=== PATIENT | female | born 1965 | race Caucasian/White ===

== ENCOUNTER 2017-07-20 10:08 | Observation (INO) | payer OTHER ==
[2017-07-20] MEDS ORDERED: ONDANSETRON 4 MG/2 ML VIAL ONE (10:50)
[2017-07-20] MEDS ORDERED: MORPHINE 10 MG/ML VIAL ONE (10:50)
--- NOTE | 2017-07-20 10:55 | RAD REPORT ---
EXAM DESCRIPTION: RAD - Chest Single View - 07/20/2017 10:50 am CLINICAL HISTORY: Chest pain. COMPARISON: 04/16/2016 FINDINGS: Portable technique limits examination quality. The lungs are grossly clear. The heart is normal in size. No displaced fractures. IMPRESSION: No acute intrathoracic process suspected.
[2017-07-20 11:07] LABS: Absolute Lymphocytes (CBC) 2.6 K/uL (0.7-4.9); Absolute Monocytes 0.6 K/uL (0.1-1.3); Absolute Neutrophil 7.1 K/uL (1.8-8.0); Basophils % 0.8 % (0-1.3); Eosinophils % 0.3 % (0-4.4); Hematocrit 50.2 % (36.0-45.0); Lymphocytes % 25.1 % (15.3-44.8); MCH 29.2 pg (27.0-35.0); MCV 89.6 fL (80-100); MPV 8.7 fL (7.6-11.3); Monocytes % 5.3 % (3.3-12.3)
[2017-07-20 11:09] LABS: Protime INR 1.51
[2017-07-20 11:41] LABS: Potassium 3.6 mEq/L (3.6-5.0)
[2017-07-20] MEDS ORDERED: levoFLOXacin 500 MG TAB ONE (11:44)
[2017-07-20 11:48] LABS: Albumin 4.5 g/dL (3.2-5.5); Bilirubin Direct 0.1 mg/dL (0-0.2); Protein, Total 7.5 g/dL (6.0-8.3)
--- NOTE | 2017-07-20 13:00 | RAD REPORT ---
EXAM DESCRIPTION: CT - Chest For Pe Angio - 07/20/2017 12:48 pm CLINICAL HISTORY: Chest pain. Shortness of breath. COMPARISON: 02/17/2013 TECHNIQUE: CT angiogram of the pulmonary arteries was performed with MIP. All CT scans are performed using dose optimization technique as appropriate and may include automated exposure control or mA/KV adjustment according to patient size. FINDINGS: No evidence of pulmonary thromboembolism. No acute aortic finding demonstrated. Aberrant right subclavian artery noted, normal variant. The lungs are clear. Prominent air cyst is present in left apex anteriorly. No significant pericardial or pleural fluid. No concerning bony finding. IMPRESSION: No evidence of pulmonary thromboembolism. No acute lung findings.
--- NOTE | 2017-07-20 13:47 | ER ---
Nurse's Notes [facility] Name: Marcie Obando Age: 52 yrs Sex: Female : 1965 Arrival Date: 07/20/2017 Time: 10:09 Bed 2 Private MD: Anup Harvey Diagnosis: Chest pain, unspecified Presentation: 07/20 10:15 Presenting complaint: Patient states: " I took some allergy and cold medicine Wednesday ph morning and went to sleep and when I woke up I was having chest pains and SOB." Pt reports pressure in center of chest that is worse w/ breathing, also reports SOB at rest, stomach pain and diarrhea yesterday. Transition of care: patient was not received from another setting of care. Onset of symptoms was July 20, 2017. Initial Sepsis Screen: Does the patient meet any 2 criteria? No. Patient's initial sepsis screen is negative. Does the patient have a suspected source of infection? No. Patient initial sepsis screen negative. 10:15 Method Of Arrival: Ambulatory ph 10:15 Acuity: ROSSI 3 ph 10:55 Care prior to arrival: None. sv Triage Assessment: 10:21 General: Appears in no apparent distress. uncomfortable, Behavior is calm, cooperative, ph appropriate for age, Denies fever. Pain: Complains of pain in chest. Cardiovascular: Reports chest pain, lightheadedness, shortness of breath. Respiratory: Airway is patent Respiratory effort is labored, Respiratory pattern is tachypnea. 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 (4 mg/mL) nasal spry 1 spray [Active]; - PMHx: 10:20 Bipolar disorder; Hypothyroidism; blood clots; ph - PSHx: 10:20 Knee surgery; kidney surgery; shoulder surgery; Tonsillectomy; Cholecystectomy; breast ph implants; tummy tuck; - Immunization history:: Adult Immunizations up to date. - Social history:: Smoking status: Patient/guardian denies using tobacco. - Family history:: not pertinent. - Hospitalizations: : No recent hospitalization is reported. Screenin:50 Abuse screen: Denies threats or abuse. Denies injuries from another. Nutritional iw screening: No deficits noted. Tuberculosis screening: No symptoms or risk factors identified. Fall Risk IV access (20 points). Assessment: 10:35 General: Appears uncomfortable, Behavior is cooperative. Pain: Complains of pain in iw chest Pain does not radiate. Pain began Aggravated by exercise, coughing. Neuro: Level of Consciousness is awake, alert, obeys commands, Oriented to person, place, time, situation, Moves all extremities. Full function Speech is normal. Cardiovascular: Capillary refill < 3 seconds in bilateral fingers Patient's skin is warm and dry. Respiratory: Reports shortness of breath pain with respiration. 10:55 General: Appears in no apparent distress. uncomfortable, Behavior is cooperative, sv anxious. Pain: Complains of pain in anterior aspect of right upper chest, mid-sternal area and right breast Pain does not radiate. Pain currently is 7 out of 10 on a pain scale. Quality of pain is described as sharp, Is continuous, Aggravated by deep breathing. Neuro: Level of Consciousness is awake, alert, obeys commands, Oriented to person, place, time, situation, Moves all extremities. Full function Speech is normal. Cardiovascular: Patient's skin is warm and dry. Respiratory: Respiratory effort is even, unlabored, Respiratory pattern is symmetrical, tachypnea. Derm: Skin is pink, warm \\T\\ dry. 15:00 Reassessment: Patient appears in no apparent distress at this time. Patient and/or sv family updated on plan of care and expected duration. Pain level reassessed. Patient is alert, oriented x 3, equal unlabored respirations, skin warm/dry/pink. Vital Signs: 10:20 BP 131 / 102; Pulse 75; Resp 28; Temp 97.1; Pulse Ox 98% on R/A; Weight 81.65 kg; ph Height 5 ft. 4 in. (162.56 cm); Pain 7/10; 10:33 BP 134 / 92; Pulse 59; Resp 22 S; Pulse Ox 98% on R/A; iw 11:52 BP 111 / 85; Pulse 57; Resp 25; Pulse Ox 100% on R/A; sv 12:30 BP 111 / 80; Pulse 49; Resp 15; Pulse Ox 100% ; sv 13:31 BP 115 / 96; Pulse 74; Resp 18; Pulse Ox 100% ; sv 14:58 BP 113 / 78; Pulse 64; Resp 19 S; Pulse Ox 99% on R/A; sg 10:20 Body Mass Index 30.90 (81.65 kg, 162.56 cm) ph Vitals: 10:55 Cardiac Rhythm Assessment Sinus rhythm. sv ED Course: 10:09 Patient arrived in ED. as 10:09 Anup Harvey MD is Private Physician. as 10:18 Triage completed. ph 10:21 Jonathan Desouza MD is Attending Physician. rn 10:21 Arm band placed on. ph 10:46 EKG done, by library media technician. reviewed by Jonathan Desouza MD. at1 10:47 Fidelia Santana RN is Primary Nurse. sv 10:48 Initial lab(s) drawn, by al, sent to lab. Inserted saline lock: 20 gauge in right iw antecubital area, using aseptic technique. Patient maintains SpO2 saturation greater than 95% on room air. 10:51 XRAY Chest (1 view) In Process Unspecified. EDMS 10:55 Patient has correct armband on for positive identification. Placed in gown. Bed in low sv position. Call light in reach. Side rails up X2. Adult w/ patient. personnel monitor on. Pulse ox on. NIBP on. Door closed. Warm blanket given. Head of bed elevated. 10:58 X-ray completed. Portable x-ray completed in exam room. Patient tolerated procedure mh1 well. 12:[address] Scan. sv 12:[address] via stretcher. sv 12:39 CT completed. Patient tolerated procedure well. Patient moved to CT via stretcher. vr Patient moved back from CT. 12:49 Chest For Pe Angio In Process Unspecified. EDMS 13:46 Neeta Ramirez MD is Hospitalizing Provider. rn 15:00 No provider procedures requiring assistance completed. Patient admitted, IV remains in sg place. intact, No redness/swelling at site. Administered Medications: 10:55 Drug: Zofran 4 mg Route: IVP; Site: right antecubital; sv 12:00 Follow up: Response: No adverse reaction sv 10:59 Drug: morphine 4 mg Route: IVP; Site: right antecubital; sv 12:00 Follow up: Response: No adverse reaction; No change in condition; Informed Dr Shanks Intake: Outcome: 13:46 Decision to Hospitalize by Provider. rn 15:00 Admitted to Tele accompanied by tech, via stretcher, with chart, Report called to mike Gustafson RN 15:00 Condition: stable 15:00 Instructed on the need for admit. 15:12 Patient left the ED. sv Signatures: Dispatcher [employer] Fidelia Nelson RN RN Bruno Norwood RN RN Lala Barton 1 Ginna Huerta Irene, RN RN Jonathan Desouza MD MD rn Davis, Victoria vr gonzales, Amanda, drier tender naphthalene EKG [facility]1 Erika Myers RN RN ph Corrections: (The following items were deleted from the chart) 10:34 10:33 BP 134 / 92; Pulse 59bpm; Resp 18bpm; Spontaneous; Pulse Ox 98% RA; iw iw 11:54 11:52 BP 111 / 85; Pulse 57bpm; Resp 32bpm; Pulse Ox 100% RA; [facility] 13:30 13:10 To radiology for Chest For PE Angio+CT.RAD.RAPHAEL. EDMS
--- NOTE | 2017-07-20 13:47 | EDPHYS ---
Physician Documentation [facility] Name: Marcie Obando Age: 52 yrs Sex: Female : 1965 Arrival Date: 07/20/2017 Time: 10:09 Bed 2 Private MD: Anup Harvey ED Physician Jonathan Desouza HPI: 07/20 10:36 This 52 yrs old Female presents to ER via Ambulatory with complaints of Chest rn Pain, Shortness Of Breath. 10:36 The patient or guardian reports chest pain that is located primarily in the substernal rn area. Onset: last night. The pain does not radiate. Associated signs and symptoms: Pertinent positives: abdominal pain, shortness of breath, Pertinent negatives: diaphoresis, dizziness, lower extremity pain, lower extremity swelling, syncope. The chest pain is described as aching. Duration: The patient or guardian reports multiple episodes, that are intermittent. Modifying factors: The symptoms are alleviated by nothing. the symptoms are aggravated by activity, deep breath, movement. Severity of pain: At its worst the pain was moderate in the emergency department the pain is unchanged. The patient has experienced similar episodes in the past. Reports central chest pain, dull/achy, intermittent since last night, no fever, reports all began with migraine, then chest pain, mild sob, mild epigastric abd pain, reports hx of blood clots but only DVTs, has filter and on xarelto. No known cardiac history. . 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 (4 mg/mL) nasal spry 1 spray [Active]; - PMHx: 10:20 Bipolar disorder; Hypothyroidism; blood clots; ph - PSHx: 10:20 Knee surgery; kidney surgery; shoulder surgery; Tonsillectomy; Cholecystectomy; breast ph implants; tummy tuck; - Immunization history:: Adult Immunizations up to date. - Social history:: Smoking status: Patient/guardian denies using tobacco. - Family history:: not pertinent. - Hospitalizations: : No recent hospitalization is reported. ROS: 10:36 Constitutional: Negative for fever, chills, and weight loss, Eyes: Negative for injury, rn pain, redness, and discharge, Neck: Negative for injury, pain, and swelling, Cardiovascular: Negative for edema, Respiratory: Negative for wheezing Abdomen/GI: Negative for vomiting, diarrhea, and constipation, MS/Extremity: Negative for injury and deformity, Skin: Negative for injury, rash, and discoloration, Neuro: Negative for weakness, numbness, tingling, and seizure. Exam: 10:36 Constitutional: Appears anxious, sitting upright, speaking full sentences Head/Face: rn Normocephalic, atraumatic. Eyes: Pupils equal round and reactive to light, extra-ocular motions intact. Lids and lashes normal. Conjunctiva and sclera are non-icteric and not injected. Cornea within normal limits. Periorbital areas with no swelling, redness, or edema. Neck: Trachea midline, no thyromegaly or masses palpated, and no cervical lymphadenopathy. Supple, full range of motion without nuchal rigidity, or vertebral point tenderness. No Meningismus. Chest/axilla: Nontender with no deformity. No lesions are appreciated. Cardiovascular: Regular rate and rhythm with a normal S1 and S2. No gallops, murmurs, or rubs. Normal PMI, no JVD. No pulse deficits. Respiratory: Mild tachypnea but clear bilaterally Abdomen/GI: soft, mild epigastric tenderness, no rebound/masses Skin: Warm, dry with normal turgor. Normal color with no rashes, no lesions, and no evidence of cellulitis. MS/ Extremity: Pulses equal, no cyanosis. Neurovascular intact. Full, normal range of motion. Equal circumference. Neuro: Awake and alert, GCS 15, oriented to person, place, time, and situation. Cranial nerves II-XII grossly intact. Motor strength 5/5 in all extremities. Sensory grossly intact. Cerebellar exam normal. Normal gait. 11:01 ECG was reviewed by the Attending Physician. rn Vital Signs: 10:20 BP 131 / 102; Pulse 75; Resp 28; Temp 97.1; Pulse Ox 98% on R/A; Weight 81.65 kg; ph Height 5 ft. 4 in. (162.56 cm); Pain 7/10; 10:33 BP 134 / 92; Pulse 59; Resp 22 S; Pulse Ox 98% on R/A; iw 11:52 BP 111 / 85; Pulse 57; Resp 25; Pulse Ox 100% on R/A; sv 12:30 BP 111 / 80; Pulse 49; Resp 15; Pulse Ox 100% ; sv 13:31 BP 115 / 96; Pulse 74; Resp 18; Pulse Ox 100% ; sv 14:58 BP 113 / 78; Pulse 64; Resp 19 S; Pulse Ox 99% on R/A; sg 10:20 Body Mass Index 30.90 (81.65 kg, 162.56 cm) ph MDM: 10:21 Patient medically screened. rn 13:45 Differential diagnosis: acute myocardial infarction, acute pericarditis, anxiety, rn coronary artery disease chest wall pain, esophagitis, gastroesophageal reflux disease (GERD), pleurisy, pneumonia, pneumothorax. Data reviewed: vital signs, nurses notes, lab test result(s), EKG, radiologic studies, CT scan, plain films, and as a result, I will admit patient. Counseling: I had a detailed discussion with the patient and/or guardian regarding: the historical points, exam findings, and any diagnostic results supporting the discharge/admit diagnosis, lab results, radiology results, the need for further work-up and treatment in the hospital. Response to treatment: the patient's symptoms have mildly improved after treatment. Admission orders: after a detailed discussion of the patient's condition and case, the admit orders are written by me. ED course: Pt still having chest pain, crying, tachypneic, most likely pleuritic pain, will observe overnight. . 07/20 10:30 Order name: Basic Metabolic Panel; Complete Time: 12:02 rn 07/20 10:30 Order name: CBC with Diff; Complete Time: 11:14 rn 07/20 10:30 Order name: LFT's; Complete Time: 12:02 rn 07/20 10:30 Order name: PT-INR; Complete Time: 11: rn 07/20 10:30 Order name: Ptt, Activated; Complete Time: 11:14 rn 07/20 10:30 Order name: Troponin (emerg Dept Use Only); Complete Time: 11:37 rn 07/20 10:30 Order name: XRAY Chest (1 view); Complete Time: 10:57 rn 07/20 10:30 Order name: EKG; Complete Time: 10:31 rn 07/20 10:30 Order name: Lipase; Complete Time: 12:02 rn 07/20 12:32 Order name: Chest For Pe Angio; Complete Time: 13:07 EDRI 07/20 10:30 Order name: Cardiac monitoring; Complete Time: 10:51 rn 07/20 10:30 Order name: EKG - Nurse/Tech; Complete Time: 10:51 rn 07/20 10:30 Order name: IV Saline Lock; Complete Time: 10:51 rn 07/20 10:30 Order name: Labs collected and sent; Complete Time: 10:51 rn 07/20 10:30 Order name: O2 Per Protocol; Complete Time: 10: rn 07/20 10:30 Order name: O2 Sat Monitoring; Complete Time: 10:51 rn EC:01 Rate is 64 beats/min. Rhythm is regular. QRS [place] is Normal. [place] interval is normal. QRS rn interval is normal. QT interval is normal. No Q waves. T waves are Normal. No ST changes noted. Clinical impression: Normal ECG. Interpreted by me. Administered Medications: 10:55 Drug: Zofran 4 mg Route: IVP; Site: right antecubital; sv 12:00 Follow up: Response: No adverse reaction sv 10:59 Drug: morphine 4 mg Route: IVP; Site: right antecubital; sv 12:00 Follow up: Response: No adverse reaction; No change in condition; Informed Dr Dimitris mckeon Disposition: 07/20/17 13:46 Hospitalization ordered by Neeta Ramirez for Observation. Preliminary diagnosis is Chest pain, unspecified. - Bed requested for Telemetry/MedSurg (observation). - Status is Observation. sv - Condition is Stable. - Problem is new. - Symptoms have improved. UTI on Admission? No Signatures: Dispatcher [employer] Fidelia Nelson RN RN sv Woody, Diana, RN RN dw Williams, Irene, RN RN iw Nieto, Roman, MD MD rn Myers, Erika, RN RN ph Corrections: (The following items were deleted from the chart) 10:52 10:31 BNP+C.LAB.BRZ ordered. EDMS EDMS 13:30 13:00 Chest For PE Angio+CT.RAD.BRZ ordered. EDMS EDMS
[2017-07-20] MEDS ORDERED: ONDANSETRON 4 MG/2 ML VIAL IV PRN (13:50)
[2017-07-20] MEDS: ACETAMINOPHEN 500 MG TAB PO PRN (16:10)
--- NOTE | 2017-07-20 16:30 | EKG ---
Test Date: 2017-07-20 Test Time: 10:35:56 Customer Service Driver: RG MEASUREMENT RESULTS: Intervals: Rate: 64 MA: 150 QRSD: 80 QT: 416 QTc: 429 [place]: P: -5 MA: 150 QRS: 24 T: 28 INTERPRETIVE STATEMENTS: Normal sinus rhythm Normal ECG Compared to ECG 07/13/2015 15:59:23 Sinus tachycardia no longer present ST (T wave) deviation no longer present Electronically Signed On 07-20-17 16:29:23 CDT by Waqar Degroot
--- NOTE | 2017-07-20 16:47 | P.HP ---
Certification for Inpatient Patient admitted to: Observation With expected LOS: <2 Midnights Patient will require the following post-hospital care: None Practitioner: I am a practitioner with admitting privileges, knowledge of patient current condition, hospital course, and medical plan of care. Services: Services provided to patient in accordance with Admission requirements found in Title 42 Section 412.3 of the Code of Federal Regulations Patient History Date of Service: 07/20/17 Primary Care Provider: Dr Harvey Reason for admission: Chest pain History of Present Illness: This is a 52-year-old female with significant past medical history of bipolar, hypothyroidism, blood clots who presented to the ED complaining of having some chest pain that has been radiating to the left arm and the back. Patient also complained of having some palpitations in the ER. Patient stated that the pain was 7/10 at its worse and was sharp and shooting in nature and sometimes it was dull. Patient states that she has never had the similar episodes in the past and this is the 1st time she has been experiencing this kind of symptoms. Patient states that she has been having some problems with breathing as well. Patient denies having any fever chills nausea vomiting or any other associated symptoms at this time. In the ER patient had troponin x1 negative, EKG had no ST abnormalities. CT PE protocol was also negative. Patient was then admitted to the hospital for further observation. Allergies No Known Allergies Allergy (Verified 07/13/15 20:51) Home Medications: Gabapentin [Gabapentin] 600 mg PO TID 07/13/15 Mesalamine [Lialda] 3 tab PO DAILY 07/13/15 Rivaroxaban [Xarelto] 20 mg PO BEDTIME 07/13/15 Topiramate [Topamax] 100 mg PO BID 07/13/15 Dihydroergotamine Mesylate 1 spray KHADIJAH PRN PRN 07/20/17 Levothyroxine [Synthroid*] 0.088 mg PO DAILY 07/20/17 Nebivolol HCl [Bystolic] 5 mg PO DAILY 07/20/17 Temazepam [Restoril*] 30 mg PO BEDTIME 07/20/17 - Past Medical/Surgical History Diabetic: No -: Bipolar -: Hypothyroid -: hx of blood clot in leg 2013 -: Colitis -: Bronchitis -: Migraines -: Asthma -: hysterectomy -: kidney sx when child - Family History Father -: Heart disease, Hypertension - Social History Alcohol use: No CD- Drugs: No Caffeine use: Yes Review of Systems General: As per HPI Physical Examination - Vital Signs Temperature: 97.5 F Blood Pressure: 113/76 Pulse: 73 Respirations: 20 Pulse Ox (%): 100 - Physical Exam General: Alert, In no apparent distress, Oriented x3 HEENT: Atraumatic Neck: Supple Respiratory: Clear to auscultation bilaterally, Normal air movement Cardiovascular: Regular rate/rhythm, Normal S1 S2 Gastrointestinal: Normal bowel sounds, No tenderness Musculoskeletal: No tenderness Integumentary: No rashes Neurological: Normal speech, Normal tone Lymphatics: No axilla or inguinal lymphadenopathy - Studies Laboratory Data (last 24 hrs) 07/20/17 10:40: PT 17.9 H, INR 1.51, APTT 30.8 07/20/17 10:40: WBC 10.4, Hgb 16.3 H, Hct 50.2 H, Plt Count 252 07/20/17 10:40: Sodium 139, Potassium 3.6, BUN 10, Creatinine 1.19 H, Glucose 93 , Total Bilirubin 1.0, AST 20, ALT 23, Alkaline Phosphatase 77, Lipase 25 07/20/17 10:30: B-Natriuretic Peptide Cancelled Assessment and Plan - Problems (Diagnosis) (1) Chest pain Current Visit: Yes Status: Acute Plan: Atpical Chest Pain with SOB -ACS ruleout -Troponin x 1 negative. Will repeat x 3 -ECHO pending -cardiology consulted. -On anticoagulation Xarelto for now. Qualifiers: Chest pain type: unspecified Qualified Code(s): R07.9 - Chest pain, unspecified (2) Pulmonary embolism Current Visit: Yes Status: Chronic Plan: On Xarelto Qualifiers: Pulmonary embolism type: other Chronicity: chronic Acute cor pulmonale presence: without acute cor pulmonale Qualified Code(s): I27.82 - Chronic pulmonary embolism (3) Bipolar disorder Current Visit: Yes Status: Chronic Qualifiers: Active/Remission status: remission status unspecified Qualified Code(s): F31.9 - Bipolar disorder, unspecified (4) Hypothyroid Current Visit: No Status: Chronic Qualifiers: Hypothyroidism type: acquired Qualified Code(s): E03.9 - Hypothyroidism, unspecified Discharge Plan: Home Plan to discharge in: 24 Hours - Advance Directives Does patient have a Living Will: No Does patient have a Durable POA for Healthcare: No - Code Status/Comfort Care Code Status Assessed: Yes Critical Care: No
[2017-07-20 16:48] VITALS: BMI 30.9
[2017-07-20] MEDS ORDERED: POTASSIUM 25 MEQ EFFERV TAB PO ONE (17:00)
[2017-07-20] MEDS: TOPIRAMATE 100 MG TAB PO SCH (20:27)
[2017-07-20] MEDS: GABAPENTIN 300 MG CAP PO SCH (20:27)
[2017-07-20] MEDS: IPRATROPIUM BROM 0.5MG/2.5ML NEB PRN (20:54)
[2017-07-20] MEDS: ALBUTEROL 2.5 MG/3 ML NEB SOL NEB PRN (20:54)
[2017-07-20] MEDS ORDERED: RIVAROXABAN 20 MG TABLET PO SCH (21:00)
[2017-07-20] MEDS ORDERED: ATORVASTATIN 40 MG TAB PO SCH (21:00)
[2017-07-20] MEDS ORDERED: TEMAZEPAM 15 MG CAP PO SCH (21:00)
[2017-07-20] MEDS ORDERED: TOPIRAMATE 100 MG PO SCH (21:00)
[2017-07-21] MEDS: ACETAMINOPHEN 500 MG TAB PO PRN (02:04)
[2017-07-21] MEDS: TRAMADOL HCL 50 MG TAB PO PRN ×2 (04:43→10:22)
[2017-07-21 04:57] LABS: Absolute Lymphocytes (CBC) 3.1 K/uL (0.7-4.9); Absolute Monocytes 0.4 K/uL (0.1-1.3); Absolute Neutrophil 2.5 K/uL (1.8-8.0); Basophils % 0.7 % (0-1.3); Eosinophils % 3.1 % (0-4.4); Hematocrit 42.4 % (36.0-45.0); MCH 29.5 pg (27.0-35.0); MCV 91.1 fL (80-100); MPV 8.9 fL (7.6-11.3); Monocytes % 6.9 % (3.3-12.3); RBC Red Blood Cell Count 4.65 M/uL (3.86-4.86)
[2017-07-21] MEDS ORDERED: LEVOTHYROXINE SOD 0.088 MG TAB PO SCH (06:00)
[2017-07-21 06:49] LABS: Albumin 3.4 g/dL (3.2-5.5); Bilirubin Total 0.5 mg/dL (0.3-1.2); Magnesium 2.2 mg/dL (1.8-2.5); Phosphorus 4.4 mg/dL (2.5-4.3); Potassium 3.8 mEq/L (3.6-5.0); Protein, Total 5.5 g/dL (6.0-8.3)
--- NOTE | 2017-07-21 07:54 | ECHO ---
HEIGHT: 5 ft 4 in WEIGHT: 180 lb 0 oz DATE OF STUDY: 07/20/[address]: Neeta Ramirez MD 2-DIMENSIONAL: YES M.MODE: YES DOPPLER: YES COLOR FLOW: YES TDS: YES PORTABLE: NO DEFINITY: NO BUBBLE STUDY: NO DIAGNOSIS: CHEST PAIN CARDIAC HISTORY: CATHERIZATION: NO SURGERY: NO PROSTHETIC VALVE: NO PACEMAKER: NO MEASUREMENTS (cm) DIASTOLIC (NORMALS) SYSTOLIC (NORMALS) IVSd 1.1 (0.6-1.2) LA Diam 3.1 (1.9-4.0) LVEF 62% LVIDd 3.4 (3.5-5.7) LVIDs 2.3 (2.0-3.5) %FS 32% LVPWd 1.1 (0.6-1.2) Ao Diam 2.7 (2.0-3.7) 2 DIMENSIONAL ASSESSMENT: RIGHT ATRIUM: NORMAL LEFT ATRIUM: NORMAL RIGHT VENTRICLE: NORMAL LEFT VENTRICLE: NORMAL TRICUSPID VALVE: NORMAL MITRAL VALVE: NORMAL PULMONIC VALVE: NORMAL AORTIC VALVE: NORMAL PERICARDIAL EFFUSION: NONE AORTIC ROOT: NORMAL LEFT VENTRICULAR WALL MOTION: NORMAL DOPPLER/COLOR FLOW: NORMAL COMMENTS: TECHNICALLY DIFFICULT STUDY. GROSSLY NORMAL LEFT VENTRICULAR EJECTION FRACTION AND SIZE. NO WALL MOTION ABNORMALITY. NO EFFUSION. TECHNOLOGIST: Noman RUANO
[2017-07-21] MEDS ORDERED: ASPIRIN EC 81 MG TAB PO SCH (09:00)
[2017-07-21] MEDS ORDERED: NEBIVOLOL HCL 5 MG PO SCH (09:00)
[2017-07-21] MEDS ORDERED: MESALAMINE PO SCH (09:00)
[2017-07-21] MEDS ORDERED: NEBIVOLOL HCL 5 MG TAB PO SCH (09:00)
[2017-07-21] MEDS ORDERED: METHYLPREDNISOLONE 125 MG INJ IV ONE (09:07)
[2017-07-21 09:13] LABS: A1c Component 0.5 mg/dL; Hemoglobin A1c 5.2 % (4-6.0)
[2017-07-21] MEDS: POTASSIUM CL SA 10 MEQ TAB PO ONE ×2 (09:58→09:59)
[2017-07-21] MEDS: GABAPENTIN 300 MG CAP PO SCH ×2 (09:59→14:05)
[2017-07-21 10:44] VITALS: O2SAT 100
[2017-07-21] MEDS ORDERED: REGADENOSON 0.4 MG/5 ML SYR IV ONE (11:44)
[2017-07-21] MEDS: ALBUTEROL 2.5 MG/3 ML NEB SOL NEB PRN (13:29)
[2017-07-21] MEDS: IPRATROPIUM BROM 0.5MG/2.5ML NEB PRN (13:29)
[2017-07-21] MEDS: TOPIRAMATE 100 MG TAB PO SCH (13:36)
--- NOTE | 2017-07-21 13:43 | CON ---
Identification: A 52-year-old woman. Chief Complaint: Chest pain. History Of Present Illness: Ms. Obando started having chest pain Wednesday night and for the most part, i t went away, but when she woke up Wednesday morning, 2 days ago, she had intense pain, well localized to the lower part of the midsternum. It does not change much with sitting or lying position, but deep breath aggravates it tremendously. Its never gone away completely and is exacerbated by deep breath and other movements of the upper chest. She appears to be very uncomfortable since being here in the hospital. Her electrocardiograms are within normal limits. An echocardiogram is within normal limi ts. There is no effusion or wall motion abnormality, but technically difficult study. Her troponins are all normal and a CT angio of the chest is negative for pulmonary embolus. The chest x-ray is no rmal. The patient has never had myocardial infarction or stroke. She does not have diabetes. She d oes not use tobacco. She has underlying bipolar disorder with mostly depressive symptoms, history of deep vein thrombosis and for that, she takes Xarelto 20 mg every day. She has hypothyroidism and mi graine headaches. Outpatient Medications: Dihydroergotamine, temazepam, levothyroxine, nebivolol, mesalamine, topirama te, gabapentin, and rivaroxaban. Allergies: SHE HAS NO ALLERGIES. Physical Examination: Vital Signs: 5 feet 4 inches, 180 pounds. Blood pressure 104/64, heart rate 54, O2 saturation 98% r oom air, and temperature 97.5. General: She appears to be uncomfortable, not in respiratory or hemodynamic distress. HEENT: Normal. Lungs: Clear. Cardiac: normal. There is no friction rub. Abdomen: Soft. Extremities: within normal limits. Normal pulses and the EKG is normal. I think the patient's pain is all pleuritic. It does not seem to be pericarditis, but pleurisy can h ave this even though there is no friction rub. I think we should give her a dose of steroids and see if that helps. If it does, she could undergo outpatient therapy. I have ordered a nuclear stress t est, pharmacological to see if there is anything suggesting she might have CAD, but she would seem to be a low to moderate risk at worst of having CAD. Her symptoms are highly unlikely to represent an acute MS. SH/MODL Voice ID: [id number] Report ID: [id number]
--- NOTE | 2017-07-21 13:49 | RAD REPORT ---
EXAM DESCRIPTION: NM - Rest Stress Cardiac Imaging - 07/21/2017 1:14 pm CLINICAL HISTORY: Chest pain COMPARISON: None. TECHNIQUE: The patient was administered 10.9 mCi of Tc 99m Sestamibi prior to resting SPECT imaging of the heart. The patient was then administered 31.2 mCi of Tc 99m Sestamibi following exercise or ph armacologic stress. Multiplanar SPECT images were reviewed. FINDINGS: The end diastolic volume is 71 ml, the end systolic volume is 26 ml, and the ejection frac tion is 63 %. No stress-induced ischemic changes identifiable. There is a fixed perfusion defect at the apex. Patch y decreased activity along the inferior wall does not change between rest and stress imaging. IMPRESSION: No stress-induced ischemia. Corinne and inferior wall small irregular fixed defects that could be scarring, attenuation artifact or a combination. Ventricular volumes and ejection fraction are normal range.
[2017-07-21 14:15] VITALS: TEMP 97.5
--- NOTE | 2017-07-21 14:41 | TREADPHA ---
DX: CHEST PAIN Date of Study: 07/21/2017 Ht: 5' 4 " Wt: 180 lb 0 oz Consulting Physician: KARISHMA MEDICATIONS: ASPIRIN, LIPITOR, NEURONTIN, SYTHROID, BYSTOLIC, ZOFRAN, XARELTO, RESTORIL, TOPAMAX, ULTRAM HISTORY: 52 YEAR OLD FEMALE WITH COMPLAINTS OF CHEST PAIN AND SHORTNESS OF BREATH. HISTORY OF HYPERTENSION, DEEP VEIN THROMBUS AND MIGRAINES. PHYSICIAL EXAMINATION: RESTING B.P.: 94/73 RESTING H.R.: 43 RESTING EKG: SINUS BRADYCARDIA, OTHERWISE NORMAL. PROTOCOL: LEXISCAN EXERCISE TIME: 3:30 B.P. AT PEAK STRESS: 95/76 106/65 IMPRESSION: LEXISCAN INJECTED. CARDIOLITE INJECTED PER PROTOCOL. SEE NUCLEAR MEDICINE REPORT. CHEST PAIN INCREASED FROM 5/10 TO 8/10 POST ADMINISTRATION. NO VENTRICULAR TACHYCARDIA. NO SUPRAVENTRICULAR TACHYCARDIA. NON DIAGNOSTIC EKG WITH LEXISCAN STRESS TEST.
[2017-07-21 15:06] LABS: Urine Appearance CLEAR; Urine Bilirubin NEGATIVE (NEG); Urine Blood NEGATIVE (NEG); Urine Color YELLOW; Urine Glucose NEGATIVE (NEG); Urine Protein NEGATIVE (NEG); Urine Urobilinogen 0.2 mg/dL (0.2-1.0)
[2017-07-21 15:12] VITALS: BP 109/68
[2017-07-21 15:24] LABS: Urine Microscopic Reflex NO UMIC
--- NOTE | 2017-07-21 17:24 | P.SSS ---
Patient History Date of Service: 07/21/17 Primary Care Provider: Dr Harvey Reason for admission: Chest pain History of Present Illness: This is a 52-year-old female with significant past medical history of bipolar, hypothyroidism, blood clots who presented to the ED complaining of having some chest pain that has been radiating to the left arm and the back. Patient also complained of having some palpitations in the ER. Patient stated that the pain was 7/10 at its worse and was sharp and shooting in nature and sometimes it was dull. Patient states that she has never had the similar episodes in the past and this is the 1st time she has been experiencing this kind of symptoms. Patient states that she has been having some problems with breathing as well. Patient denies having any fever chills nausea vomiting or any other associated symptoms at this time. In the ER patient had troponin x1 negative, EKG had no ST abnormalities. CT PE protocol was also negative. Patient was then admitted to the hospital for further observation. Allergies No Known Allergies Allergy (Verified 07/13/15 20:51) Home Medications: Gabapentin [Gabapentin] 600 mg PO TID 07/13/15 Mesalamine [Lialda] 3 tab PO DAILY 07/13/15 Rivaroxaban [Xarelto] 20 mg PO BEDTIME 07/13/15 Topiramate [Topamax] 100 mg PO BID 07/13/15 Dihydroergotamine Mesylate 1 spray KHADIJAH PRN PRN 07/20/17 Levothyroxine [Synthroid*] 0.088 mg PO DAILY 07/20/17 Nebivolol HCl [Bystolic] 5 mg PO DAILY 07/20/17 Temazepam [Restoril*] 30 mg PO BEDTIME 07/20/17 Pantoprazole [Protonix Tab] 40 mg PO DAILY #30 tab 07/21/17 - Past Medical/Surgical History Has patient received pneumonia vaccine in the past: Yes Diabetic: No -: Bipolar -: Hypothyroid -: hx of blood clot in leg 2012 -: Colitis -: Bronchitis -: Migraines -: Asthma -: hysterectomy -: kidney sx when child -: Knee Sx -: Shoulder sx -: Tonsillectomy -: Chlecystectomy -: Breast implants -: Obed escalante - Family History Father -: Heart disease, Hypertension - Social History Smoking Status: Never smoker Alcohol use: No CD- Drugs: No Caffeine use: Yes Place of Residence: Home Review of Systems General: As per HPI Physical Examination - Vital Signs Temperature: 97.5 F Blood Pressure: 109/68 Pulse: 63 Respirations: 18 Pulse Ox (%): 98 - Physical Exam General: Alert, In no apparent distress HEENT: Atraumatic, PERRLA, Mucous membr. moist/pink, EOMI, Sclerae nonicteric Neck: Supple, 2+ carotid pulse no bruit, No LAD, Without JVD or thyroid abnormality Respiratory: Clear to auscultation bilaterally, Normal air movement Cardiovascular: Regular rate/rhythm, Normal S1 S2 Gastrointestinal: Normal bowel sounds, No tenderness Musculoskeletal: No tenderness Integumentary: No rashes Neurological: Normal gait, Normal speech, Normal strength at 5/5 x4 extr, Normal tone, Normal affect Lymphatics: No axilla or inguinal lymphadenopathy - Diagnosis (Problem(s)) (1) Chest pain Onset Date: 07/21/17 Status: Acute Qualifiers: Chest pain type: unspecified Qualified Code(s): R07.9 - Chest pain, unspecified (2) Bipolar disorder Onset Date: 07/21/17 Status: Chronic Qualifiers: Active/Remission status: remission status unspecified Qualified Code(s): F31.9 - Bipolar disorder, unspecified (3) Hypothyroid Onset Date: 07/21/17 Status: Chronic Qualifiers: Hypothyroidism type: acquired Qualified Code(s): E03.9 - Hypothyroidism, unspecified Treatment Summary: Overall during the hospital stay patient remained stable The patient was initially admitted to the hospital for chest pain. Had an echocardiogram done here in the hospital along with stress test which were both negative for any acute abnormalities. Patient was then discharged home under stable condition. Patient has a lot of underlying anxiety due to recent changes in her life. She is going through a divorce and does has been trying to get her anxiety in control and has not been successful. Patient was asked to follow up with his primary care provider to get properly treated for anxiety and was asked to talk to a counselor as well regarding follow up with a psychiatrist. Patient does follow up with [facility] and will be seen there shortly. - Disposition Disposition: ROUTINE DISCHARGE Diet: Regular Activity: Ad aziza
== END 2017-07-21 15:46 | disposition home or self-care (01) ==
LOC: ER 10:08 → ERHOLD 13:47 → 4TH 15:05
PROVIDERS: ADMIT Family Medicine; ATTEND Family Medicine
DX: R07.9 Chest pain, unspecified (principal); F31.9 Bipolar disorder, unspecified; E03.9 Hypothyroidism, unspecified; Z86.718 Personal history of other venous thrombosis and embolism
CPT/HCPCS: 36415; 71045; 71275; 78452; 80048; 80053; 80061; 80076; 81003; 83036; 83690; 83735; 84100; 84484; 85025; 85610; 85730; 93005; 93017; 93306; 94640; 96374; 96375; 99285; A9500; G0378; J2405; J2785; J2930; Q9967

== ENCOUNTER 2019-01-09 03:05 | Emergency (ER) | payer OTHER ==
[2019-01-09] MEDS ORDERED: ONDANSETRON 4 MG/2 ML VIAL ONE (03:48)
[2019-01-09] MEDS ORDERED: KETOROLAC 30 MG/ML INJ ONE (03:48)
[2019-01-09] MEDS ORDERED: DIPHENHYDRAMINE 50 MG/ML VIAL ONE (03:48)
[2019-01-09] MEDS ORDERED: NA CHLORIDE 0.9% 1,000 ML ONE (03:48)
[2019-01-09] MEDS ORDERED: MORPHINE 4 MG/ML SYR ONE (04:51)
--- NOTE | 2019-01-09 06:08 | ER ---
Nurse's Notes [facility] Name: Marcie Obando Age: 53 yrs Sex: Female : 1965 Arrival Date: 01/09/2019 Time: 03:08 Bed 8 Private MD: Diagnosis: Migraine without aura, not intractable, without status migrainosus Presentation: 01/09 03:19 Presenting complaint: Patient states: "I have a migraine that has been going on for the lp1 past month"; States recent change in medication by neurologist with no relief; Complaint of pain to left methodist radiating to left arm, light sensitivity, nausea. Transition of care: patient was not received from another setting of care. Onset of symptoms was January 08, 2019. Risk Assessment: Do you want to hurt yourself or someone else? Patient reports no desire to harm self or others. Initial Sepsis Screen: Does the patient meet any 2 criteria? No. Patient's initial sepsis screen is negative. Does the patient have a suspected source of infection? No. Patient's initial sepsis screen is negative. Care prior to arrival: None. 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 - Hysterectomy lp1 Historical: - Allergies: 03:24 NKA; wh 03:24 NKA; lp1 - Home Meds: 03:24 sumatriptan 20 mg/actuation nasal spry 1 spray daily for Migraine [Active]; topiramate lp1 50 mg oral tab 2 tabs 2 times per day [Active]; levothyroxine 88 mcg tab 1 tab once daily [Active]; Xarelto 20 mg Oral tab 1 tab once daily [Active]; tamsulosin 0.4 mg oral cp24 1 cap nightly [Active]; amoxicillin 500 mg Oral tab 1 tab daily [Active]; - PMHx: 03:24 Hypertension; wh 03:24 Bipolar disorder; blood clots; Hypothyroidism; Migraines; Stage 3 renal disease; UTI; lp1 - PSHx: 03:24 Hysterectomy; Cholecystectomy; kidney surgery; IVC filter; breast augmentation; lp1 - Immunization history:: Adult Immunizations up to date, Adult Immunizations up to date. - Social history:: Smoking status: Patient/guardian denies using tobacco, Patient uses Vape, Smoking status: Patient/guardian denies using tobacco. - Ebola Screening: : Patient negative for fever greater than or equal to 101.5 degrees Fahrenheit, and additional compatible Ebola Virus Disease symptoms Patient denies exposure to infectious person No symptoms or risks identified at this time. Screenin:21 Abuse screen: Denies threats or abuse. Denies injuries from another. Nutritional wh screening: No deficits noted. Tuberculosis screening: No symptoms or risk factors identified. Fall Risk None identified. Assessment: 03:24 General: Appears in no apparent distress. uncomfortable, Behavior is calm, cooperative, wh appropriate for age. Pain: Complains of pain in left methodist and left occipital area Pain radiates to left arm Pain currently is 10 out of 10 on a pain scale. Pain began 1 1/2 month ago. Neuro: Level of Consciousness is awake, alert, obeys commands, Oriented to person, place, time, situation, Appropriate for age Ginning Operator are equal bilaterally Reports headache in left frontal area, occipital area, since 1 1/2 month ago. Cardiovascular: Capillary refill < 3 seconds. Respiratory: Airway is patent Respiratory effort is even, unlabored, Respiratory pattern is regular, symmetrical. GI: Abdomen is flat, non-distended, Reports nausea. : No signs and/or symptoms were reported regarding the genitourinary system. EENT: No signs and/or symptoms were reported regarding the EENT system. Derm: Skin is intact, is healthy with good turgor, Skin is pink, warm \\T\\ dry. normal. Musculoskeletal: Circulation, motion, and sensation intact. 04:54 Reassessment: Patient appears in no apparent distress at this time. No changes from previously documented assessment. Patient and/or family updated on plan of care and expected duration. Pain level reassessed. Patient is alert, oriented x 3, equal unlabored respirations, skin warm/dry/pink. STill C/O pain MD notified. 06:15 Reassessment: Patient appears in no apparent distress at this time. No changes from previously documented assessment. Patient and/or family updated on plan of care and expected duration. Pain level reassessed. Patient is alert, oriented x 3, equal unlabored respirations, skin warm/dry/pink. Patient states feeling better. Patient states symptoms have improved. Vital Signs: 03:20 BP 124 / 91; Pulse 92; Resp 18; Temp 98.2(O); Pulse Ox 98% on R/A; Weight 72.57 kg; lp1 Height 5 ft. 4 in. (162.56 cm); Pain 10/10; 04:56 BP 107 / 76; Pulse 88; Resp 18; Pulse Ox 99% on R/A; wh 06:16 BP 116 / 80; Pulse 71; Resp 18; Pulse Ox 96% on R/A; wh 03:20 Body Mass Index 27.46 (72.57 kg, 162.56 cm) lp1 ED Course: 03:08 Patient arrived in ED. ds1 03:15 Pavan Nelson is Primary Nurse. wh 03:20 Triage completed. lp1 03:20 Arm band placed on. lp1 03:21 Patient has correct armband on for positive identification. Bed in low position. Call light in reach. Side rails up X 1. Pulse ox on. NIBP on. 03:33 Jose Ledesma MD is Attending Physician. tw4 03:50 Inserted saline lock: 22 gauge in right antecubital area, using aseptic technique. Blood collected. 06:17 No provider procedures requiring assistance completed. IV discontinued, intact, bleeding controlled, No redness/swelling at site. Administered Medications: 03:57 Drug: TORadol 30 mg Route: IVP; Site: right antecubital; 04:55 Follow up: Response: No adverse reaction 03:57 Drug: NS 0.9% 1000 ml Route: IV; Rate: 1 bolus; Site: right antecubital; 04:55 Follow up: Response: No adverse reaction; IV Status: Completed infusion 03:57 Drug: Zofran 4 mg Route: IVP; Site: right antecubital; 04:55 Follow up: Response: No adverse reaction 03:57 Drug: Benadryl 25 mg Route: IVP; Site: right antecubital; 04:55 Follow up: Response: No adverse reaction 04:56 Drug: morphine 4 mg {Note: RASS 0.} Route: IVP; Site: right antecubital; 06:16 Follow up: Response: No adverse reaction; Pain is decreased; RASS: Alert and Calm (0) Outcome: 06:07 Discharge ordered by . tw4 06:17 Discharged to home ambulatory. 06:17 Condition: good 06:17 Discharge instructions given to patient, Instructed on discharge instructions, follow up and referral plans. POC Migraine Demonstrated understanding of instructions, follow-up care, POC 07:03 Patient left the ED. Signatures: Elma Parra ds1 Sara Staley, RN RN lp1 [email or web address] Jose Ledesma MD MD tw4 Corrections: (The following items were deleted from the chart) 03:58 03:24 GI: Abdomen is flat, non-distended, [facility] 06:16 04:54 Reassessment: Patient appears in no apparent distress at this time. No changes wh from previously documented assessment. Patient and/or family updated on plan of care and expected duration. Pain level reassessed. STill C/O pain notified 06:16 06:15 Reassessment: Patient appears in no apparent distress at this time. No changes wh from previously documented assessment. Patient and/or family updated on plan of care and expected duration. Pain level reassessed. Patient is alert, oriented x 3, equal unlabored respirations, skin warm/dry/pink.
--- NOTE | 2019-01-09 06:08 | EDPHYS ---
Physician Documentation [facility] Name: Marcie Obando Age: 53 yrs Sex: Female : 1965 Arrival Date: 01/09/2019 Time: 03:08 Bed 8 Private MD: ED Physician Jose Ledesma HPI: 01/09 06:14 This 53 yrs old Female presents to ER via Wheelchair with complaints of tw4 Migraine. 06:14 The patient complains of pain to the left jain and left temporal area. The patient tw4 describes the headache as aching. Onset: The symptoms/episode began/occurred today. Associated signs and symptoms: The patient has no apparent associated signs or symptoms. Severity of symptoms: At its worst the pain was moderate, in the emergency department the pain is unchanged. The symptoms are alleviated by nothing. the symptoms are aggravated by nothing. The patient has not experienced similar symptoms in the past. 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 - Hysterectomy lp1 Historical: - Allergies: 03:24 NKA; wh 03:24 NKA; lp1 - Home Meds: 03:24 sumatriptan 20 mg/actuation nasal spry 1 spray daily for Migraine [Active]; topiramate lp1 50 mg oral tab 2 tabs 2 times per day [Active]; levothyroxine 88 mcg tab 1 tab once daily [Active]; Xarelto 20 mg Oral tab 1 tab once daily [Active]; tamsulosin 0.4 mg oral cp24 1 cap nightly [Active]; amoxicillin 500 mg Oral tab 1 tab daily [Active]; - PMHx: 03:24 Hypertension; wh 03:24 Bipolar disorder; blood clots; Hypothyroidism; Migraines; Stage 3 renal disease; UTI; lp1 - PSHx: 03:24 Hysterectomy; Cholecystectomy; kidney surgery; IVC filter; breast augmentation; lp1 - Immunization history:: Adult Immunizations up to date, Adult Immunizations up to date. - Social history:: Smoking status: Patient/guardian denies using tobacco, Patient uses Vape, Smoking status: Patient/guardian denies using tobacco. - Ebola Screening: : Patient negative for fever greater than or equal to 101.5 degrees Fahrenheit, and additional compatible Ebola Virus Disease symptoms Patient denies exposure to infectious person No symptoms or risks identified at this time. ROS: 06:14 Constitutional: Negative for fever, chills, and weight loss, Eyes: Negative for injury, tw4 pain, redness, and discharge, Cardiovascular: Negative for chest pain, palpitations, and edema, Respiratory: Negative for shortness of breath, cough, wheezing, and pleuritic chest pain, Abdomen/GI: Negative for abdominal pain, nausea, vomiting, diarrhea, and constipation, Back: Negative for injury and pain, MS/Extremity: Negative for injury and deformity, Skin: Negative for injury, rash, and discoloration. 06:14 Neuro: Positive for Exam: 06:14 Constitutional: This is a well developed, well nourished patient who is awake, alert, tw4 and in no acute distress. Head/Face: Normocephalic, atraumatic. Chest/axilla: Normal chest wall appearance and motion. Nontender with no deformity. No lesions are appreciated. Cardiovascular: Regular rate and rhythm with a normal S1 and S2. No gallops, murmurs, or rubs. Normal PMI, no JVD. No pulse deficits. Respiratory: Lungs have equal breath sounds bilaterally, clear to auscultation and percussion. No rales, rhonchi or wheezes noted. No increased work of breathing, no retractions or nasal flaring. Abdomen/GI: Soft, non-tender, with normal bowel sounds. No distension or tympany. No guarding or rebound. No evidence of tenderness throughout. Back: No spinal tenderness. No costovertebral tenderness. Full range of motion. MS/ Extremity: Pulses equal, no cyanosis. Neurovascular intact. Full, normal range of motion. Neuro: Awake and alert, GCS 15, oriented to person, place, time, and situation. Cranial nerves II-XII grossly intact. Motor strength 5/5 in all extremities. Sensory grossly intact. Cerebellar exam normal. Normal gait. Vital Signs: 03:20 BP 124 / 91; Pulse 92; Resp 18; Temp 98.2(O); Pulse Ox 98% on R/A; Weight 72.57 kg; lp1 Height 5 ft. 4 in. (162.56 cm); Pain 10/10; 04:56 BP 107 / 76; Pulse 88; Resp 18; Pulse Ox 99% on R/A; wh 06:16 BP 116 / 80; Pulse 71; Resp 18; Pulse Ox 96% on R/A; 03:20 Body Mass Index 27.46 (72.57 kg, 162.56 cm) lp1 MDM: 03:33 Patient medically screened. tw4 06:20 Differential diagnosis: hypoglycemia, hyponatremia, otitis. Data reviewed: vital signs, tw4 nurses notes. Counseling: I had a detailed discussion with the patient and/or guardian regarding: the historical points, exam findings, and any diagnostic results supporting the discharge/admit diagnosis. Administered Medications: 03:57 Drug: TORadol 30 mg Route: IVP; Site: right antecubital; 04:55 Follow up: Response: No adverse reaction 03:57 Drug: NS 0.9% 1000 ml Route: IV; Rate: 1 bolus; Site: right antecubital; 04:55 Follow up: Response: No adverse reaction; IV Status: Completed infusion 03:57 Drug: Zofran 4 mg Route: IVP; Site: right antecubital; 04:55 Follow up: Response: No adverse reaction 03:57 Drug: Benadryl 25 mg Route: IVP; Site: right antecubital; 04:55 Follow up: Response: No adverse reaction 04:56 Drug: morphine 4 mg {Note: RASS 0.} Route: IVP; Site: right antecubital; 06:16 Follow up: Response: No adverse reaction; Pain is decreased; RASS: Alert and Calm (0) Disposition: 01/09/19 06:07 Discharged to Home. Impression: Migraine without aura, not intractable, without status migrainosus. - Condition is Stable. - Medication Reconciliation Form, Thank You Letter, Antibiotic Education, Prescription Opioid Use form. - Follow up: Private Physician; When: Upon discharge from the Emergency Department; Reason: If symptoms return, Recheck today's complaints, Continuance of care. - Problem is an ongoing problem. - Symptoms have improved. Signatures: Sara Staley RN RN lp1 Pavan Nelson Terrence, MD MD tw4 Corrections: (The following items were deleted from the chart) 07:03 06:07 01/09/2019 06:07 Discharged to Home. Impression: Migraine without aura, not wh intractable, without status migrainosus. Condition is Stable. Forms are Medication Reconciliation Form, Thank You Letter, Antibiotic Education, Prescription Opioid Use. Follow up: Private Physician; When: Upon discharge from the Emergency Department; Reason: If symptoms return, Recheck today's complaints, Continuance of care. Problem is an ongoing problem. Symptoms have improved. tw4
[2019-01-09 07:16] VITALS: TEMP 98.2
[2019-01-09 07:19] VITALS: BP 116/80; O2SAT 96
== END 2019-01-09 07:03 | disposition home or self-care (01) ==
LOC: ER 03:05
DX: G43.909 Migraine, unspecified, not intractable, without status migrainosus (principal); F31.9 Bipolar disorder, unspecified; E03.9 Hypothyroidism, unspecified; I12.9 Hypertensive chronic kidney disease with stage 1 through stage 4 chronic kidney disease, or unspecified chronic kidney disease; N18.3 Chronic kidney disease, stage 3 (moderate); Z79.01 Long term (current) use of anticoagulants; Z98.82 Breast implant status
CPT/HCPCS: 96361; 96375; 96374; 99284; J1200; J7030; J2405

== ENCOUNTER 2019-03-16 15:52 | Emergency (ER) | payer OTHER ==
--- OUTSIDE RECORDS SUMMARY | 2019-03-16 15:54 | XMS REPORT ---
:1965 [facility] Address [address] [place] [address] [address]. [address] [place] [address] Care Team Providers Name Role Phone Unavailable Unavailable Unavailable Problems This patient has no known problems. Allergies, Adverse Reactions, Alerts This patient has no known allergies or adverse reactions. Medications This patient has no known medications.
--- NOTE | 2019-03-16 18:00 | ER ---
Nurse's Notes [facility] Name: Marcie Obando Age: 54 yrs Sex: Female : 1965 Arrival Date: 03/16/2019 Time: 15:55 Bed Ultrasound Private MD: Diagnosis: Synovial cyst of popliteal space [Mccann], right knee Presentation: 03/16 15:58 Presenting complaint: Patient states: my right knee started swelling a couple of days tw2 ago and its from my toes to my groin, its warm to the touch and it is swelling, i have a hx of blood clots in the left leg, now this is painful and i cant deal with it anymore. Presenting complaint:. Transition of care: patient was not received from another setting of care. Onset of symptoms was March 16, 2019. Risk Assessment: Do you want to hurt yourself or someone else? Patient reports no desire to harm self or others. Initial Sepsis Screen: Does the patient meet any 2 criteria? No. Patient's initial sepsis screen is negative. Does the patient have a suspected source of infection?. Care prior to arrival: None. 15:58 Method Of Arrival: Ambulatory tw2 15:58 Acuity: ROSSI 3 tw2 Triage Assessment: 16:01 General: Appears in no apparent distress. Behavior is calm, cooperative, appropriate tw2 for age. Pain: Complains of pain in right leg. 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 - Hysterectomy tw2 Historical: - Allergies: 16:01 NKA; tw2 - Home Meds: 16:01 Xarelto 20 mg Oral tab 1 tab once daily [Active]; topiramate 50 mg Oral tab 2 tabs 2 tw2 times per day [Active]; tamsulosin 0.4 mg Oral cp24 1 cap nightly [Active]; sumatriptan 20 mg/actuation nasal spry 1 spray daily for Migraine [Active]; amoxicillin 500 mg Oral tab 1 tab daily [Active]; levothyroxine 88 mcg tab 1 tab once daily [Active]; 16:03 emgality 120 mg/ml injection monthly [Active]; tw2 - PMHx: 16:01 Bipolar disorder; blood clots; Hypertension; Hypothyroidism; Migraines; stage 3 renal tw2 disease; UTI; - PSHx: 16:01 Hysterectomy; Cholecystectomy; kidney surgery; IVC filter; breast augmentation; tw2 - Immunization history:: Adult Immunizations. - Social history:: Smoking status: . - Ebola Screening: : Patient denies travel to an Ebola-affected area in the 21 days before illness onset. Screenin:15 Abuse screen: Denies threats or abuse. Nutritional screening: No deficits noted. tr5 Tuberculosis screening: No symptoms or risk factors identified. Fall Risk None identified. Assessment: 16:15 General: Appears uncomfortable, Behavior is calm, cooperative, appropriate for age. tr5 Pain: Complains of pain in right leg. Neuro: Level of Consciousness is awake, alert, obeys commands. Cardiovascular: Heart tones present Capillary refill < 3 seconds Pulses are all present. Edema is 2+ to right knee, right midcalf, right ankle and right foot. Respiratory: Airway is patent Respiratory effort is even, unlabored, Respiratory pattern is regular, symmetrical. GI: No signs and/or symptoms were reported involving the gastrointestinal system. : No signs and/or symptoms were reported regarding the genitourinary system. EENT: No signs and/or symptoms were reported regarding the EENT system. Derm: Skin is pink. Musculoskeletal: No signs and/or symptoms reported regarding the musculoskeletal system. Vital Signs: 16:02 BP 135 / 98; Pulse 84; Resp 17; Temp 98(TE); Pulse Ox 99% on R/A; Weight 74.84 kg (R); tw2 Height 5 ft. 4 in. (162.56 cm); Pain 7/10; 16:02 Body Mass Index 28.32 (74.84 kg, 162.56 cm) tw2 ED Course: 15:55 Patient arrived in ED. mr 15:59 Triage completed. tw2 15:59 Arm band placed on. tw2 16:05 Ludwig Garnica PA is PHCP. jr8 16:05 Dwight Beckford MD is Attending Physician. jr8 16:15 Bed in low position. Call light in reach. Side rails up X 1. tr5 17:05 Jed Francis, RN is Primary Nurse. tr5 17:48 US Extremity Venous Unilateral Ltd In Process Unspecified. EDMS 18:46 No provider procedures requiring assistance completed. Patient did not have IV access tr5 during this emergency room visit. Administered Medications: No medications were administered Outcome: 17:59 Discharge ordered by MD. mendoza 18:46 Discharged to home ambulatory. tr5 18:46 Condition: stable 18:46 Discharge instructions given to patient, family, Instructed on discharge instructions, follow up and referral plans. Demonstrated understanding of instructions, follow-up care. 18:48 Patient left the ED. tr5 Signatures: Dispatcher [employer] ED BernardoVicki mr NahunLudwig PA PA jr8 Fany Walters RN RN tw2 Jed Francis RN RN tr5 Corrections: (The following items were deleted from the chart) 16:03 16:01 Home Meds: "monthly shot for my migraine, monthly"; tw2 tw2
--- NOTE | 2019-03-16 18:01 | EDPHYS ---
Physician Documentation [facility] Name: Marcie Obando Age: 54 yrs Sex: Female : 1965 Arrival Date: 03/16/2019 Time: 15:55 Bed Ultrasound Private MD: ED Physician Dwight Beckford HPI: 03/16 16:45 This 54 yrs old Female presents to ER via Ambulatory with complaints of Leg jr8 Swelling. 16:45 Onset: The symptoms/episode began/occurred gradually, yesterday. Modifying factors: The jr8 symptoms are alleviated by nothing. the symptoms are aggravated by nothing. Associated signs and symptoms: The patient has no apparent associated signs or symptoms. Severity of symptoms: At their worst the symptoms were moderate, in the emergency department the symptoms are unchanged. It is unknown whether or not the patient has had similar symptoms in the past. The patient has not recently seen a physician. Patient with history of DVT in past. On Xarelto 20 mg QD. Stated that her right knee started to hurt in back and on medial side. Stated that she is concerned she is getting another DVT. 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 - Hysterectomy tw2 Historical: - Allergies: 16:01 NKA; tw2 - Home Meds: 16:01 Xarelto 20 mg Oral tab 1 tab once daily [Active]; topiramate 50 mg Oral tab 2 tabs 2 tw2 times per day [Active]; tamsulosin 0.4 mg Oral cp24 1 cap nightly [Active]; sumatriptan 20 mg/actuation nasal spry 1 spray daily for Migraine [Active]; amoxicillin 500 mg Oral tab 1 tab daily [Active]; levothyroxine 88 mcg tab 1 tab once daily [Active]; 16:03 emgality 120 mg/ml injection monthly [Active]; tw2 - PMHx: 16:01 Bipolar disorder; blood clots; Hypertension; Hypothyroidism; Migraines; stage 3 renal tw2 disease; UTI; - PSHx: 16:01 Hysterectomy; Cholecystectomy; kidney surgery; IVC filter; breast augmentation; tw2 - Immunization history:: Adult Immunizations. - Social history:: Smoking status: . - Ebola Screening: : Patient denies travel to an Ebola-affected area in the 21 days before illness onset. ROS: 16:45 Eyes: Negative for injury, pain, redness, and discharge, ENT: Negative for injury, jr8 pain, and discharge, Neck: Negative for injury, pain, and swelling, Cardiovascular: Negative for chest pain, palpitations, and edema, Respiratory: Negative for shortness of breath, cough, wheezing, and pleuritic chest pain, Abdomen/GI: Negative for abdominal pain, nausea, vomiting, diarrhea, and constipation, Back: Negative for injury and pain, Skin: Negative for injury, rash, and discoloration, Neuro: Negative for headache, weakness, numbness, tingling, and seizure. 16:45 MS/extremity: Positive for pain, swelling, tenderness, warmth, of the right leg. Exam: 16:45 Eyes: Pupils equal round and reactive to light, extra-ocular motions intact. Lids and jr8 lashes normal. Conjunctiva and sclera are non-icteric and not injected. Cornea within normal limits. Periorbital areas with no swelling, redness, or edema. ENT: Nares patent. No nasal discharge, no septal abnormalities noted. Tympanic membranes are normal and external auditory canals are clear. Oropharynx with no redness, swelling, or masses, exudates, or evidence of obstruction, uvula midline. Mucous membranes moist. Neck: Trachea midline, no thyromegaly or masses palpated, and no cervical lymphadenopathy. Supple, full range of motion without nuchal rigidity, or vertebral point tenderness. No Meningismus. Cardiovascular: Regular rate and rhythm with a normal S1 and S2. No gallops, murmurs, or rubs. Normal PMI, no JVD. No pulse deficits. Respiratory: Lungs have equal breath sounds bilaterally, clear to auscultation and percussion. No rales, rhonchi or wheezes noted. No increased work of breathing, no retractions or nasal flaring. Abdomen/GI: Soft, non-tender, with normal bowel sounds. No distension or tympany. No guarding or rebound. No evidence of tenderness throughout. Back: No spinal tenderness. No costovertebral tenderness. Full range of motion. Skin: Warm, dry with normal turgor. Normal color with no rashes, no lesions, and no evidence of cellulitis. Neuro: Awake and alert, GCS 15, oriented to person, place, time, and situation. Cranial nerves II-XII grossly intact. Motor strength 5/5 in all extremities. Sensory grossly intact. Cerebellar exam normal. Normal gait. 16:45 Musculoskeletal/extremity: Extremities: grossly normal except: noted in the right leg: Mild non pitting swelling noted to right leg. No erythema or warmth noted. Mild tenderness to calf and popleiteal region . Vital Signs: 16:02 BP 135 / 98; Pulse 84; Resp 17; Temp 98(TE); Pulse Ox 99% on R/A; Weight 74.84 kg (R); tw2 Height 5 ft. 4 in. (162.56 cm); Pain 7/10; 16:02 Body Mass Index 28.32 (74.84 kg, 162.56 cm) tw2 MDM: 16:05 Patient medically screened. jr8 17:58 Data reviewed: vital signs, nurses notes, radiologic studies, ultrasound, and as a jr8 result, I will discharge patient. Data interpreted: Pulse oximetry: on room air is 99 %. Interpretation: normal. Counseling: I had a detailed discussion with the patient and/or guardian regarding: the historical points, exam findings, and any diagnostic results supporting the discharge/admit diagnosis, radiology results, the need for outpatient follow up, a family practitioner, to return to the emergency department if symptoms worsen or persist or if there are any questions or concerns that arise at home. ED course: Discussed with patient. No DVT. Most likely bakers cyst that popped. Would explain the type of pain she was having. Will d/c home . 03/16 16:21 Order name: US Extremity Venous Unilateral Ltd jr8 Administered Medications: No medications were administered Disposition: 03/17 06:40 Co-signature as Attending Physician, Dwight Beckford MD I agree with the assessment and kdr plan of care. Disposition: 03/16/19 17:59 Discharged to Home. Impression: Synovial cyst of popliteal space [Mccann], right knee. - Condition is Stable. - Discharge Instructions: Mccann Cyst. - Medication Reconciliation Form, Thank You Letter, Antibiotic Education, Prescription Opioid Use form. - Follow up: Private Physician; When: As needed; Reason: Recheck today's complaints, Continuance of care, Re-evaluation by your physician. - Problem is new. - Symptoms have improved. Signatures: Dispatcher [employer] EDMS Dwight Beckford MD MD kdr Roszak, Josh, PA PA jr8 Fany Walters RN RN tw2 Jed Francis RN RN tr5 Corrections: (The following items were deleted from the chart) 03/16 16:03 16:01 Home Meds: "monthly shot for my migraine, monthly"; tw2 tw2 18:48 17:59 03/16/2019 17:59 Discharged to Home. Impression: Synovial cyst of popliteal space tr5 [Mccann], right knee. Condition is Stable. Forms are Medication Reconciliation Form, Thank You Letter, Antibiotic Education, Prescription Opioid Use. Follow up: Private Physician; When: As needed; Reason: Recheck today's complaints, Continuance of care, Re-evaluation by your physician. Problem is new. Symptoms have improved. jr8
--- NOTE | 2019-03-16 18:14 | RAD REPORT ---
EXAM DESCRIPTION: USExtremity Venous Uni Ltd03/16/2019 5:48 pm CLINICAL HISTORY: Right leg pain and swelling. COMPARISON: 2017 FINDINGS: Right common femoral, superficial femoral, popliteal and right posterior tibial veins are compressible and demonstrate augmentation. Doppler demonstrates good flow. 5 x 3 x 1 centimeter Mccann's cyst IMPRESSION: No evidence of deep venous thrombosis involving the right lower extremity. 5 centimeter Mccann's cyst
[2019-03-16 18:54] VITALS: BP 135/98; TEMP 98; O2SAT 99
== END 2019-03-16 18:48 | disposition home or self-care (01) ==
LOC: ER 15:52
DX: M71.21 Synovial cyst of popliteal space [Baker], right knee (principal); I10 Essential (primary) hypertension; E03.9 Hypothyroidism, unspecified; N28.9 Disorder of kidney and ureter, unspecified; I12.9 Hypertensive chronic kidney disease with stage 1 through stage 4 chronic kidney disease, or unspecified chronic kidney disease; N18.3 Chronic kidney disease, stage 3 (moderate); G43.909 Migraine, unspecified, not intractable, without status migrainosus
CPT/HCPCS: 93971; 99283

== ENCOUNTER 2019-08-10 10:11 | Emergency (ER) | payer OTHER ==
--- OUTSIDE RECORDS SUMMARY | 2019-08-10 10:32 | XMS REPORT ---
:1965 Author Organization [facility] t Address [address] [place] [address] Care Team Providers Name Role Phone Unavailable Unavailable Unavailable Problems This patient has no known problems. Allergies, Adverse Reactions, Alerts This patient has no known allergies or adverse reactions. Medications This patient has no known medications.
--- OUTSIDE RECORDS SUMMARY | 2019-08-10 10:33 | XMS REPORT | Summary of Care ---
:1965 Author Organization [facility] Address [address] [place] [id number] Care Team Providers Name Role Phone Nicolás Harvey Primary Care Provider Reason for Visit Reason Comments Refill Request Encounter Details Date Type Department Care Team Description 06/20/2019 Refill [facility] Denis Carr MD Refill Request Neurology-[address] [place] [id number] [address] [place] [id number] [phone] Allergies No Known Allergiesdocumented as of this encounter (statuses as of 06/20/2019) Medications Medication Sig Dispensed Refills Start Date End Date Status LEVOTHYROXINE Take 88 mcg by 0 A ctive SODIUM mouth. (LEVOTHYROXINE ORAL) TRAZODONE HCL Take by mouth. 0 Active (TRAZODONE ORAL) RIVAROXABAN Take 20 mg by 0 Acti ve (XARELTO ORAL) mouth. LIALDA 1.2 gram EC 0 08/22/2015 Active tablet BYSTOLIC 5 mg 0 03/09/2016 Activ e tablet PROCTOSOL HC 2.5 % 0 02/18/2016 Active rectal cream albuterol 1.25 mg/3 0 04/14/2016 Active mL nebulizer solution PROAIR HFA 90 0 04/14/2016 Activ e mcg/actuation inhaler gabapentin 600 mg Take 1 tablet 270 tablet 3 11/30/2017 Active tablet by mouth 3 (three) times daily. amoxicillin 500 mg 0 05/18/2018 Active capsule atomoxetine 60 mg 0 05/05/2018 A ctive capsule SERTraline 100 mg 0 05/13/2018 A ctive tablet traZODONE 50 mg trazodone 50 mg 0 Active tablet tablet topiramate 50 mg Take 3 tablets 540 tablet 2 01/09/2019 Active tablet by mouth 2 (two) times daily. SUMAtriptan 6 Inject 6 4.5 mL 0 01/18/2019 Activ e mg/0.5 mL injection mg/0.5ml subq at onset of migraine. May only use once in a 24 hour period. proMETHazine 25 mg Take 1 tablet 45 tablet 0 01/18/2019 Active tablet by mouth every 6 (six) hours as needed for Nausea and Vomiting (N/V). EMGALITY PEN 120 INJECT 1 1 Each 5 06/20/2019 Ac tive mg/mL PnIj SYRINGE UNDER subcutaneous THE SKIN EVERY injection MONTH galcanezumab-gnlm inject 120 mg 1 Syringe 6 01/18/2019 02 Discontinued prefilled under the skin 0 (EMGALITY) once every subcutaneous month. injection documented as of this encounter (statuses as of 06/20/2019) Active Problems Problem Noted Date Right knee pain 04/16/2016 Left foot pain 08/01/2015 documented as of this encounter (statuses as of 06/20/2019) Social History Tobacco Use Types Packs/Day Years Used Date Never Smoker Smokeless Tobacco: Never Used Alcohol Use Drinks/Week oz/Week Comments No Sex Assigned at Date Recorded Not on file Job Start Date Occupation Industry Not on file Not on file Not on file Travel History Travel Start Travel End No recent travel history available. documented as of this encounter Last Filed Vital Signs Not on filedocumented in this encounter Plan of Treatment Health Maintenance Due Date Last Done Comments HEPATITIS C (HCV) SCREEN 1965 DTaP,Tdap,and Td Vaccines (1 - 02/14/1976 Tdap) PAP SMEAR 1986 Breast Cancer Screening 2005 (MAMMOGRAM) COLONOSCOPY 2015 Zoster Recombinant Vaccine 2015 (SHINGRIX) (1 of 2) INFLUENZA VACCINE (#1) 2018 PNEUMOCOCCAL 0-64 YEARS COMBINED Aged Out No longer eligible based on SERIES patient's age to complete this topic documented as of this encounter Results Not on filedocumented in this encounter Insurance Payer Benefit Plan / Group Subscriber ID Effective Dates Phone Address Type AETVENKAT ALEJANDRA [employer] TRES [id number] 2016-Present PPO documented as of this encounter
[2019-08-10] MEDS ORDERED: MORPHINE 4 MG/ML SYR ONE ×2 (11:02→12:44)
[2019-08-10] MEDS ORDERED: ONDANSETRON 4 MG/2 ML VIAL ONE (11:03)
[2019-08-10 11:10] LABS: Absolute Lymphocytes (CBC) 2.2 K/uL (0.7-4.9); Basophils % 0.9 % (0-1.3); Hematocrit 46.1 % (36.0-45.0); Lymphocytes % 26.5 % (15.3-44.8); MPV 7.8 fL (7.6-11.3); RBC Red Blood Cell Count 5.17 M/uL (3.86-4.86)
[2019-08-10] MEDS ORDERED: NA CHLORIDE 0.9% 1,000 ML ONE (11:16)
[2019-08-10 11:33] LABS: Albumin 3.6 g/dL (3.4-5.0); Bilirubin Direct 0.2 mg/dL (0-0.2); Bilirubin Total 0.7 mg/dL (0.2-1.0)
--- NOTE | 2019-08-10 12:16 | RAD REPORT ---
EXAM DESCRIPTION: CT - Abdomen Pelvis W Contrast - 08/10/2019 11:58 am CLINICAL HISTORY: Abdominal pain COMPARISON: 2015 TECHNIQUE: Computed axial tomography of the abdomen pelvis was obtained. 100 cc Isovue-300 was admin istered intravenously. Oral contrast was not requested which limits evaluation of bowel. All CT scans are performed using dose optimization technique as appropriate and may include automated exposure control or mA/KV adjustment according to patient size. FINDINGS: Cholecystectomy. The common hepatic and common bile ducts are mildly more prominent than o n the prior exam. Mild intrahepatic biliary tree dilatation. Otherwise, the liver is unremarkable . The pancreatic duct is borderline enlarged. A pancreatic mass is not seen The spleen, and adrenals are unremarkable. Small renal cysts. 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 One limb protrudes 16 millimeters through the posterior wall. There is no evidence of diverticulitis. IMPRESSION: Mild progression in the intra and extrahepatic biliary tree dilatation since the prior e xam. This could be physiologic or secondary to pathology such as a stricture. Borderline prominence of pancreatic duct. Is recommended that the patient have an MRCP for further evaluation
[2019-08-10] MEDS ORDERED: HYDROMORPHONE HCL 2 MG/ML inj ONE (13:47)
--- NOTE | 2019-08-10 14:44 | EDPHYS ---
Physician Documentation [facility] Name: Marcie Obando Age: 54 yrs Sex: Female : 1965 Arrival Date: 08/10/2019 Time: 10:12 Bed 14 Private MD: Anup Harvey ED Physician Dwight Beckford HPI: 08/09 11:52 This 54 yrs old Female presents to ER via Ambulatory with complaints of jr8 Abdominal Cramping, Diarrhea, Headache. 11:52 The patient presents with abdominal pain. Onset: The symptoms/episode began/occurred jr8 acutely, 3 day(s) ago. The symptoms do not radiate. Associated signs and symptoms: Pertinent positives: diarrhea, nausea. The symptoms are described as crampy. Modifying factors: The symptoms are alleviated by nothing, the symptoms are aggravated by food. Severity of pain: At its worst the pain was moderate in the emergency department the pain is unchanged. The patient has not experienced similar symptoms in the past. The patient has been recently seen by a physician:. Seen by PCP and given cipro and flagyl. Stated that she started to run fever and pain is worse. Was referred to ED at that time . Historical: - Allergies: 10:45 NKA; ah - Home Meds: 10:45 levothyroxine 88 mcg tab 1 tab once daily [Active]; Xarelto 20 mg Oral tab 1 tab once ah daily [Active]; topiramate 50 mg Oral tab 2 tabs 2 times per day [Active]; Flagyl Oral [Active]; Cipro Oral [Active]; Hyoscyamine Sulfate SL [Active]; Diphenoxylate-Atropine Oral [Active]; Bactrim DS Oral once daily [Active]; Trazodone Oral [Active]; - PMHx: 10:45 Bipolar disorder; blood clots; Hypertension; Hypothyroidism; Migraines; stage 3 renal ah disease; - PSHx: 10:45 Cholecystectomy; Tonsillectomy; Knee surgery; r shoulder; Hysterectomy; breast ah implants; kidney; - Immunization history:: Adult Immunizations up to date. - Social history:: Smoking status: Patient denies any tobacco usage or history of. Patient uses alcohol, occasionally. ROS: 11:52 Eyes: Negative for injury, pain, redness, and discharge, ENT: Negative for injury, jr8 pain, and discharge, Neck: Negative for injury, pain, and swelling, Cardiovascular: Negative for chest pain, palpitations, and edema, Respiratory: Negative for shortness of breath, cough, wheezing, and pleuritic chest pain, Back: Negative for injury and pain, MS/Extremity: Negative for injury and deformity, Skin: Negative for injury, rash, and discoloration, Neuro: Negative for headache, weakness, numbness, tingling, and seizure. 11:52 Abdomen/GI: Positive for abdominal pain, nausea, diarrhea, abdominal cramps. Exam: 11:52 Eyes: Pupils equal round and reactive to light, extra-ocular motions intact. Lids and jr8 lashes normal. Conjunctiva and sclera are non-icteric and not injected. Cornea within normal limits. Periorbital areas with no swelling, redness, or edema. ENT: Nares patent. No nasal discharge, no septal abnormalities noted. Tympanic membranes are normal and external auditory canals are clear. Oropharynx with no redness, swelling, or masses, exudates, or evidence of obstruction, uvula midline. Mucous membranes moist. Neck: Trachea midline, no thyromegaly or masses palpated, and no cervical lymphadenopathy. Supple, full range of motion without nuchal rigidity, or vertebral point tenderness. No Meningismus. Cardiovascular: Regular rate and rhythm with a normal S1 and S2. No gallops, murmurs, or rubs. Normal PMI, no JVD. No pulse deficits. Respiratory: Lungs have equal breath sounds bilaterally, clear to auscultation and percussion. No rales, rhonchi or wheezes noted. No increased work of breathing, no retractions or nasal flaring. Back: No spinal tenderness. No costovertebral tenderness. Full range of motion. Skin: Warm, dry with normal turgor. Normal color with no rashes, no lesions, and no evidence of cellulitis. MS/ Extremity: Pulses equal, no cyanosis. Neurovascular intact. Full, normal range of motion. Neuro: Awake and alert, GCS 15, oriented to person, place, time, and situation. Cranial nerves II-XII grossly intact. Motor strength 5/5 in all extremities. Sensory grossly intact. Cerebellar exam normal. Normal gait. 11:52 Abdomen/GI: Inspection: abdomen appears normal, Bowel sounds: active, all quadrants, Palpation: soft, in all quadrants, moderate abdominal tenderness, in the umbilical area, right lower quadrant and left lower quadrant, mass, is not appreciated, rebound tenderness, is elicited in all quadrants, voluntary guarding, is elicited in the umbilical area, right lower quadrant and left lower quadrant, involuntary guarding, is not appreciated, no appreciated organomegaly, Indicators: McBurney's point is not tender, Camarena's sign is negative, Rovsing's sign is negative, Liver: tenderness, is not appreciated. Vital Signs: 10:35 BP 110 / 81; Pulse 77; Resp 20; Temp 98.7; Pulse Ox 99% ; Weight 81.65 kg; Height 5 ft. ah 4 in. (162.56 cm); Pain 8/10; 11:00 BP 115 / 90; Pulse 69; Resp 20; Pulse Ox 97% ; ah 11:34 BP 119 / 85; Pulse 62; Resp 20; Pulse Ox 97% ; ah 12:28 BP 120 / 91; Pulse 87; Resp 18; Pulse Ox 98% ; ah 13:15 BP 121 / 83; Pulse 74; Resp 20; Pulse Ox 95% ; ah 14:00 BP 117 / 3; Pulse 84; Resp 18; Pulse Ox 96% ; ah 15:22 BP 109 / 78; Pulse 86; Resp 18; Pulse Ox 96% ; ah 10:35 Body Mass Index 30.90 (81.65 kg, 162.56 cm) MDM: 10:33 Patient medically screened. jr8 13:20 Data reviewed: vital signs, nurses notes, lab test result(s), radiologic studies, CT jr8 scan. Data interpreted: Pulse oximetry: on room air is 97 %. Interpretation: normal. Counseling: I had a detailed discussion with the patient and/or guardian regarding: the historical points, exam findings, and any diagnostic results supporting the discharge/admit diagnosis, lab results, radiology results, the need for outpatient follow up, a family practitioner, to return to the emergency department if symptoms worsen or persist or if there are any questions or concerns that arise at home. Response to treatment: the patient's symptoms have mildly improved after treatment. ED course: Spoke with Dr. Harvey about patient after results. Agrees patient can go home and continue medications already prescribed at this time. If worse would come back for further evaluation . 08/09 10:41 Order name: Basic Metabolic Panel; Complete Time: 11:41 08/09 10:41 Order name: CBC with Diff; Complete Time: 11:08/09 10:41 Order name: Creatinine for Radiology; Complete Time: :08/09 10:41 Order name: Hepatic Function; Complete Time: 11:41 08/09 10:41 Order name: Lipase; Complete Time: 11:41 08/09 10:41 Order name: CT Abd/Pelvis - IV Contrast Only; Complete Time: 12:33 08/09 10:41 Order name: IV Saline Lock; Complete Time: 11:08/09 10:41 Order name: Labs collected and sent; Complete Time: : Administered Medications: 11:05 Drug: morphine 4 mg Route: IVP; Site: right antecubital; ah 22:27 Follow up: Response: No adverse reaction 11:05 Drug: Zofran (Ondansetron) 4 mg Route: IVP; Site: right antecubital; 22:27 Follow up: Response: No adverse reaction 11:10 Drug: NS 0.9% 1000 ml Route: IV; Rate: 1000 ml; Site: right antecubital; ah 12:41 Drug: morphine 4 mg Route: IVP; Site: right antecubital; ah 13:45 Follow up: Response: No adverse reaction 13:30 Drug: Dilaudid 1 mg Route: IVP; Site: right antecubital; ah 14:30 Follow up: Response: No adverse reaction Disposition: 08/10 01:26 Co-signature as Attending Physician, Dwight Beckford MD I agree with the assessment and kdr plan of care. Disposition: 08/10/19 14:44 Discharged to Home. Impression: Lower abdominal pain, unspecified, Diarrhea, unspecified. - Condition is Stable. - Discharge Instructions: Abdominal Pain, Adult, Diarrhea, Adult. - Prescriptions for Tylenol- Codeine #3 300-30 mg Oral Tablet - take 2 tablets by ORAL route every 6 hours As needed; 20 tablet. Zofran 4 mg Oral Tablet - take 1 tablet by ORAL route every 8 hours As needed; 20 tablet. - Medication Reconciliation Form, Thank You Letter, Antibiotic Education, Prescription Opioid Use, Work release form form. - Follow up: Anup Harvey MD; When: 5 - 6 days; Reason: Recheck today's complaints, Continuance of care, Re-evaluation by your physician. - Problem is new. - Symptoms have improved. Signatures: Dispatcher [employer] EDDwight Comer MD MD [facility] Ludwig Garnica PA PA jr8 Joyce Degroot, RN RN Corrections: (The following items were deleted from the chart) 08/09 15:24 14:44 08/10/2019 14:44 Discharged to Home. Impression: Lower abdominal pain, ah unspecified; Diarrhea, unspecified. Condition is Stable. Forms are Medication Reconciliation Form, Thank You Letter, Antibiotic Education, Prescription Opioid Use. Follow up: Anup Harvey; When: 5 - 6 days; Reason: Recheck today's complaints, Continuance of care, Re-evaluation by your physician. Problem is new. Symptoms have improved. jr8
--- NOTE | 2019-08-10 14:44 | ER ---
Nurse's Notes [facility] Name: Marcie Obando Age: 54 yrs Sex: Female : 1965 Arrival Date: 08/10/2019 Time: 10:12 Bed 14 Private MD: Anup Harvey Diagnosis: Lower abdominal pain, unspecified;Diarrhea, unspecified Presentation: 08/09 10:35 Chief complaint: Patient states: cramping to low middle belly, nausea and diarrhea x 2 days. Was seen in MD office yesterday and given meds and they called to check on her this morning and told her to come to ED. Coronavirus screen: Proceed with normal triage. Patient denies a cough. Patient denies shortness of breath or difficulty breathing. Patient denies measured and/or subjective temperature greater than 100.4F prior to today's visit. Patient denies travel on a cruise ship or to a country the [facility] currently lists as an affected area. Patient denies contact with known and/or suspected case of COVID-19. Ebola Screen: No symptoms or risks identified at this time. Initial Sepsis Screen: Does the patient meet any 2 criteria? No. Patient's initial sepsis screen is negative. Does the patient have a suspected source of infection? No. Patient's initial sepsis screen is negative. Risk Assessment: Do you want to hurt yourself or someone else? Patient reports no desire to harm self or others. Onset of symptoms was August 08, 2019. 10:35 Method Of Arrival: Ambulatory 10:35 Acuity: ROSSI 3 Historical: - Allergies: 10:45 NKA; - Home Meds: 10:45 levothyroxine 88 mcg tab 1 tab once daily [Active]; Xarelto 20 mg Oral tab 1 tab once ah daily [Active]; topiramate 50 mg Oral tab 2 tabs 2 times per day [Active]; Flagyl Oral [Active]; Cipro Oral [Active]; Hyoscyamine Sulfate SL [Active]; Diphenoxylate-Atropine Oral [Active]; Bactrim DS Oral once daily [Active]; Trazodone Oral [Active]; - PMHx: 10:45 Bipolar disorder; blood clots; Hypertension; Hypothyroidism; Migraines; stage 3 renal ah disease; - PSHx: 10:45 Cholecystectomy; Tonsillectomy; Knee surgery; r shoulder; Hysterectomy; breast ah implants; kidney; - Immunization history:: Adult Immunizations up to date. - Social history:: Smoking status: Patient denies any tobacco usage or history of. Patient uses alcohol, occasionally. Screenin:30 Abuse screen: Denies threats or abuse. Nutritional screening: No deficits noted. Tuberculosis screening: No symptoms or risk factors identified. Fall Risk None identified. Assessment: 10:46 General: Appears in no apparent distress. Behavior is calm, cooperative. Pain: Complains of pain in suprapubic area Pain does not radiate. Pain currently is 8 out of 10 on a pain scale. Quality of pain is described as crampy. Neuro: Level of Consciousness is awake, alert, Oriented to person, place, time. Cardiovascular: Capillary refill < 3 seconds Patient's skin is warm and dry. Respiratory: Airway is patent Respiratory effort is even, unlabored, Respiratory pattern is regular, symmetrical. GI: Bowel sounds present X 4 quads. Abdomen is tender to palpation in suprapubic area Reports cramping, nausea, Patient currently denies vomiting. : No signs and/or symptoms were reported regarding the genitourinary system. EENT: No signs and/or symptoms were reported regarding the EENT system. Derm: No signs and/or symptoms reported regarding the dermatologic system. Musculoskeletal: No signs and/or symptoms reported regarding the musculoskeletal system. 11:50 Reassessment: Pt taken to CT via wheelchair. 12:03 Reassessment: Returned from CT scan. 12:27 Reassessment: Pt states that cramps in her stomach are getting worse. Provider notified. Awaiting orders. 13:15 Reassessment: Pt given Dilauded at this time for pain. No vomiting at this time. 14:18 Reassessment: Pt states that pain medication was effective. Pt resting in bed with no grimace noted at this time. 15:18 Reassessment: Discharge instructions given to Pt and education regarding prescriptions. Encouraged Pt to eat a BRAT diet until diarrhea subsides and stay hydrated. Pt voiced understanding. Vital Signs: 10:35 BP 110 / 81; Pulse 77; Resp 20; Temp 98.7; Pulse Ox 99% ; Weight 81.65 kg; Height 5 ft. 4 in. (162.56 cm); Pain 8/10; 11:00 BP 115 / 90; Pulse 69; Resp 20; Pulse Ox 97% ; ah 11:34 BP 119 / 85; Pulse 62; Resp 20; Pulse Ox 97% ; ah 12:28 BP 120 / 91; Pulse 87; Resp 18; Pulse Ox 98% ; ah 13:15 BP 121 / 83; Pulse 74; Resp 20; Pulse Ox 95% ; ah 14:00 BP 117 / 3; Pulse 84; Resp 18; Pulse Ox 96% ; ah 15:22 BP 109 / 78; Pulse 86; Resp 18; Pulse Ox 96% ; ah 10:35 Body Mass Index 30.90 (81.65 kg, 162.56 cm) ED Course: 10:12 Patient arrived in ED. ag5 10:13 Anup Harvey MD is Private Physician. ag5 10:32 Ludwig Garnica [facility]. jr8 10:32 Dwight Beckford MD is Attending Physician. jr8 10:38 Triage completed. 10:54 Joyce Degroot, VERN is Primary Nurse. 11:00 Lab(s) recollected, by ri, sent to lab. Inserted saline lock: 20 gauge in right kj1 antecubital area, using aseptic technique. Blood collected. 11:58 CT Abd/Pelvis - IV Contrast Only In Process Unspecified. EDMS 12:30 Patient has correct armband on for positive identification. Bed in low position. Call light in reach. Side rails up X2. 14:43 Anup Harvey MD is Referral Physician. jr 15:00 IV discontinued, intact, Pressure dressing applied. 15:23 No provider procedures requiring assistance completed. Administered Medications: 11:05 Drug: morphine 4 mg Route: IVP; Site: right antecubital; 22:27 Follow up: Response: No adverse reaction 11:05 Drug: Zofran (Ondansetron) 4 mg Route: IVP; Site: right antecubital; 22:27 Follow up: Response: No adverse reaction 11:10 Drug: NS 0.9% 1000 ml Route: IV; Rate: 1000 ml; Site: right antecubital; 12:41 Drug: morphine 4 mg Route: IVP; Site: right antecubital; 13:45 Follow up: Response: No adverse reaction 13:30 Drug: Dilaudid 1 mg Route: IVP; Site: right antecubital; 14:30 Follow up: Response: No adverse reaction Outcome: 14:44 Discharge ordered by MD. mendoza 15:15 Discharged to home ambulatory. 15:15 Condition: stable 15:15 Discharge instructions given to patient, Instructed on discharge instructions, follow up and referral plans. medication usage, Demonstrated understanding of instructions, follow-up care, medications. 15:24 Patient left the ED. Signatures: Dispatcher [employer] EDMS Ludwig Garnica PA PA jr8 Riaz Castro ag5 Negra Narayanan kj1 Joyce Degroot, RN RN
[2019-08-11 03:34] VITALS: TEMP 98.7
[2019-08-11 03:43] VITALS: O2SAT 96
[2019-08-11 03:44] VITALS: BP 109/78
== END 2019-08-10 15:24 | disposition home or self-care (01) ==
LOC: ER 10:11
DX: R19.7 Diarrhea, unspecified (principal); I12.9 Hypertensive chronic kidney disease with stage 1 through stage 4 chronic kidney disease, or unspecified chronic kidney disease; N18.3 Chronic kidney disease, stage 3 (moderate); E03.9 Hypothyroidism, unspecified; F31.9 Bipolar disorder, unspecified; Z79.01 Long term (current) use of anticoagulants; Z98.82 Breast implant status
CPT/HCPCS: 85025; 80048; 36415; 80076; 83690; 74177; 96375; 96374; 99284; Q9967; J1170; J7030; J2405

== ENCOUNTER 2019-10-09 10:56 | Emergency (ER) | payer OTHER ==
[2019-10-09] MEDS ORDERED: HYDROCODONE/CHLORPHEN 5 ML/OSYR ONE (12:50)
[2019-10-09 13:06] LABS: Protime INR 0.94
[2019-10-09 13:13] LABS: Absolute Lymphocytes (CBC) 2.4 K/uL (0.7-4.9); Basophils % 0.9 % (0-1.3); Hematocrit 46.1 % (36.0-45.0); Lymphocytes % 32.6 % (15.3-44.8); MPV 8.3 fL (7.6-11.3); RBC Red Blood Cell Count 5.15 M/uL (3.86-4.86)
[2019-10-09 13:14] LABS: ALT/SGPT 26 U/L (12-78); AST/SGOT 16 U/L (15-37); Albumin 3.7 g/dL (3.4-5.0); Alkaline Phosphatase 78 U/L (45-117); BUN Blood Urea Nitrogen 11 mg/dL (7-18); Bicarbonate 25 mmol/L (21-32); Bilirubin Direct 0.1 mg/dL (0-0.2); Bilirubin Total 0.5 mg/dL (0.2-1.0); Glucose Level 98 mg/dL (74-106); Magnesium 2.3 mg/dL (1.8-2.4); NT PRO-BNP 38 pg/mL (<125); Potassium 4.1 mmol/L (3.5-5.1); Protein, Total 6.7 g/dL (6.4-8.2); Sodium Level 143 mmol/L (136-145); Troponin (Emerg Dept Use Only) < 0.02 ng/mL (0.0-0.045)
--- NOTE | 2019-10-09 13:16 | RAD REPORT ---
EXAM DESCRIPTION: RAD - Chest Single View - 10/09/2019 1:08 pm CLINICAL HISTORY: Chest pain;SOB;Cough;Fever Chest pain. COMPARISON: Chest Single View dated 07/20/2017; Chest Pa And Lat (2 Views) dated 04/16/2016; Chest Sin gle View dated 07/13/2015; ABDOMEN 1 VIEW KUB dated 05/31/2014 FINDINGS: Portable technique limits examination quality. The lungs are grossly clear. The heart is normal in size. No displaced fractures. IMPRESSION: No acute intrathoracic process suspected.
--- OUTSIDE RECORDS SUMMARY | 2019-10-09 13:22 | XMS REPORT | Continuity of Care Document ---
:1965 Author Organization [facility] t Address [address] [place] [address] Care Team Providers Name Role Phone Lilly RODRIGUEZ, Thomas Attending Clinician Problems This patient has no known problems. Allergies, Adverse Reactions, Alerts This patient has no known allergies or adverse reactions. Medications This patient has no known medications. Procedures This patient has no known procedures. Encounters Start End Encounter Admission Attending Care Care Encounter Source Date/Time Date/Time Type Type Clinicians Facility Department ID 2019-06-20 2019-06-20 Refill [facility] [id number] 00:00:00 00:00:00 Denis Burr [id number] [place] [id number] [facility] [phone] [address] 2018-12-14 2018-12-14 Telephone [place] [id number] 00:00:00 00:00:00 Denis Burr [id number] [place] [id number] [facility] [phone] [address] 2018-12-12 2018-12-12 [facility] [id number] 00:00:00 00:00:00 Denis Burr [id number] [place] [id number] [facility] [phone] [address] [address] Building Results This patient has no known results.
--- NOTE | 2019-10-09 14:22 | RAD REPORT ---
EXAM DESCRIPTION: CT - Chest For Pe Angio - 10/09/2019 2:13 pm CLINICAL HISTORY: SOB COMPARISON: Chest For Pe Angio dated 07/20/2017; Chest Single View dated 10/09/2019 TECHNIQUE: Dynamically enhanced 3 mm thick images of the chest were obtained during administration o f approximately 150mL Isovue 370 IV contrast. Coronal and oblique MIP reconstruction images were gene rated and reviewed. Exam utilizes a protocol to evaluate the pulmonary arterial tree. All CT scans are performed using dose optimization technique as appropriate and may include automated exposure control or mA/KV adjustment according to patient size. FINDINGS: No pulmonary emboli are identified. The aorta as imaged shows no acute or suspicious finding. No pericardial thickening or effusion. No focal lung parenchymal process identifiable. No abnormal interstitial thickening or edema suspecte d. No pleural effusion or pleural thickening. No mediastinal or hilar suspicious masses. No chest wall masses or abnormal axillary lymphadenopathy. Bilateral breast implants are in place. There is leakage of fluid between the breast implant capsule and the surrounding fibrous capsule. No full collapse of the implant. IMPRESSION: No pulmonary emboli identified. No acute lung parenchymal process. Full findings detailed in the body of the report.
[2019-10-09] MEDS ORDERED: ALBUTEROL 2.5 MG/3 ML NEB SOL ONE (15:11)
[2019-10-09] MEDS ORDERED: dexAMETHasone 10 MG/ML VIAL ONE (15:11)
--- NOTE | 2019-10-09 15:50 | EDPHYS ---
Physician Documentation [facility] Name: Marcie Obando Age: 54 yrs Sex: Female : 1965 Arrival Date: 10/09/2019 Time: 11:00 Bed 16 Private MD: Anup Harvey ED Physician Rigo Wiley HPI: 10/08 11:48 This 54 yrs old Female presents to ER via Ambulatory with complaints of pm1 Breathing Difficulty, Chest Pressure. 11:48 The patient has shortness of breath coughing so much she feels that it is hard to pm1 breath. Onset: The symptoms/episode began/occurred 1 week(s) ago. Duration: The symptoms are continuous, improved the last two prior days but worse today. The patient's shortness of breath is aggravated by nothing, is alleviated by nothing. Associated signs and symptoms: Pertinent positives: chest pain, non-productive cough, Headache, body aches, wheezing, Pertinent negatives: fever, vomiting, diarrhea. Severity of symptoms: in the emergency department the symptoms are worse. Patient has a pending covid test but was instructed to report to the ER for a stat covid test by her PCP. SPACE AND MISSILE OPERATIONS SPACELIFT: 12:47 LMP N/A - Hysterectomy ca1 Historical: - Allergies: 11:11 NKA; iw - Home Meds: 11:11 levothyroxine 88 mcg tab 1 tab once daily [Active]; tamsulosin 0.4 mg Oral cp24 1 cap iw nightly [Active]; Xarelto 20 mg Oral tab 1 tab once daily [Active]; Ambien 10 mg Oral tab 1 tab once daily [Active]; emgality 120 mg/ml injection monthly [Active]; amoxicillin 500 mg Oral tab 1 tab daily [Active]; Hyoscyamine Sulfate SL [Active]; - PMHx: 11:11 Bipolar disorder; blood clots; Hypertension; Hypothyroidism; Migraines; stage 3 renal iw disease; UTI; - PSHx: 11:11 Cholecystectomy; Knee surgery; Tonsillectomy; r shoulder; Hysterectomy; breast iw implants; kidney; - Immunization history:: Adult Immunizations up to date. - Social history:: Smoking status: Patient denies any tobacco usage or history of. ROS: 11:48 Abdomen/GI: Negative for abdominal pain, nausea, vomiting, diarrhea, and constipation, pm1 Back: Negative for injury and pain, MS/Extremity: Negative for injury and deformity, Skin: Negative for injury, rash, and discoloration. 11:48 Constitutional: Positive for body aches, Negative for fever, poor PO intake. 11:48 Cardiovascular: Positive for chest pain, Negative for edema, orthopnea, palpitations. 11:48 Respiratory: Positive for cough, shortness of breath, wheezing. 11:48 Neuro: Positive for headache. Exam: 11:48 Constitutional: This is a well developed, well nourished patient who is awake, alert, pm1 and in no acute distress. Head/Face: Normocephalic, atraumatic. 11:48 Eyes: Pupils equal round and reactive to light, extra-ocular motions intact. Lids and lashes normal. Conjunctiva and sclera are non-icteric and not injected. Cornea within normal limits. Periorbital areas with no swelling, redness, or edema. ENT: Nares patent. No nasal discharge, no septal abnormalities noted. Tympanic membranes are normal and external auditory canals are clear. Oropharynx with no redness, swelling, or masses, exudates, or evidence of obstruction, uvula midline. Mucous membranes moist. Neck: Trachea midline, no thyromegaly or masses palpated, and no cervical lymphadenopathy. Supple, full range of motion without nuchal rigidity, or vertebral point tenderness. No Meningismus. 11:48 Abdomen/GI: Soft, non-tender, with normal bowel sounds. No distension or tympany. No guarding or rebound. No evidence of tenderness throughout. Back: No spinal tenderness. No costovertebral tenderness. Full range of motion. Skin: Warm, dry with normal turgor. Normal color with no rashes, no lesions, and no evidence of cellulitis. MS/ Extremity: Pulses equal, no cyanosis. Neurovascular intact. Full, normal range of motion. 11:48 Chest/axilla: Inspection: normal, Palpation: tenderness, that is moderate, of the mid-sternal area, that totally reproduces the patient's complaints. 11:48 Cardiovascular: Rate: normal, Rhythm: regular, Pulses: no pulse deficits are appreciated. 11:48 Respiratory: Exam negative for acute changes, the patient does not display signs of respiratory distress, Respirations: normal, no retractions, no tachypnea. 11:48 Neuro: Exam negative for acute changes, Orientation: is normal, Mentation: is normal, Motor: is normal, moves all fours. 11:48 Psych: Behavior/mood is anxious, Affect is animated. Vital Signs: 11:06 BP 140 / 115; Pulse 86; Resp 18 S; Temp 98.4; Pulse Ox 99% on R/A; Weight 81.65 kg; iw Height 5 ft. 4 in. (162.56 cm); Pain 10/10; 12:46 BP 134 / 98; Pulse 75; Resp 17 S; Pulse Ox 96% on R/A; ca1 13:15 BP 121 / 93; Pulse 76; Resp 24 S; Pulse Ox 96% on R/A; ca1 14:19 BP 129 / 85; Pulse 68; Resp 18 S; Pulse Ox 97% on R/A; ca1 15:11 BP 127 / 91; Pulse 62; Resp 17 S; Pulse Ox 99% on R/A; ca1 15:51 BP 132 / 88; Pulse 73; Resp 20 S; Pulse Ox 100% on R/A; ca1 11:06 Body Mass Index 30.90 (81.65 kg, 162.56 cm) iw MDM: 11:11 Patient medically screened. [facility] 15:46 Data reviewed: vital signs. Data interpreted: Pulse oximetry: on room air is 99 %. pm1 Interpretation: normal. 15:46 ED course: Patient feels better with breathing treatment. Therefore will discharge the pm1 patient home with albuterol, steroid, and cough medication. 15:46 Counseling: I had a detailed discussion with the patient and/or guardian regarding: the pm1 historical points, exam findings, and any diagnostic results supporting the discharge/admit diagnosis, lab results, radiology results, the need for outpatient follow up, PCP and with plastics for evaluation of leaking breast implant, to return to the emergency department if symptoms worsen or persist or if there are any questions or concerns that arise at home. 10/08 11:33 Order name: Basic Metabolic Panel; Complete Time: 13:20 pm1 10/08 11:33 Order name: CBC with Diff; Complete Time: 13:20 pm1 10/08 11:33 Order name: LFT's; Complete Time: 13:20 pm1 10/08 11:33 Order name: Magnesium; Complete Time: 13:20 pm1 10/08 11:33 Order name: NT PRO-BNP; Complete Time: 13:20 pm1 10/08 11:33 Order name: PT-INR; Complete Time: 13:20 pm1 10/08 11:33 Order name: Troponin (emerg Dept Use Only); Complete Time: 13:20 pm1 10/08 11:33 Order name: XRAY Chest (1 view); Complete Time: 13:20 pm1 10/08 11:33 Order name: Flu; Complete Time: 17:01 pm1 10/08 11:33 Order name: Strep; Complete Time: 15:29 pm1 10/08 11:44 Order name: COVID-19 pm1 10/08 13:59 Order name: CT Chest For PE Angio; Complete Time: 14:32 pm1 10/08 15:17 Order name: Throat Culture EDOH 10/08 11:33 Order name: EKG; Complete Time: 11:34 pm1 10/08 11:33 Order name: Cardiac monitoring; Complete Time: 12:44 pm1 10/08 11:33 Order name: EKG - Nurse/Tech; Complete Time: 12:44 pm1 10/08 11:33 Order name: IV Saline Lock; Complete Time: 12:44 pm1 10/08 11:33 Order name: Labs collected and sent; Complete Time: 12:44 pm1 10/08 11:33 Order name: O2 Per Protocol; Complete Time: 12:44 pm1 10/08 11:33 Order name: O2 Sat Monitoring; Complete Time: 12:44 pm1 Administered Medications: 12:56 Drug: Tussionex Pennkinetic ER 5 ml Route: PO; ca1 13:30 Follow up: Response: No adverse reaction; Marked relief of symptoms ca1 14:55 Drug: Decadron - Dexamethasone 10 mg Route: IVP; Site: left antecubital; ca1 15:52 Follow up: Response: No adverse reaction; Marked relief of symptoms ca1 14:56 Not Given (Physician Discretion): Albuterol HFA Inhaler 2 puffs Inhalation once pm1 15:02 Drug: Albuterol 2.5 mg Route: Inhalation; ca1 Disposition: 20:56 Co-signature as Attending Physician, Rigo Wiley MD I agree with the assessment and donte plan of care. Disposition: 10/09/19 15:49 Discharged to Home. Impression: Acute upper respiratory infection, unspecified. - Condition is Stable. - Discharge Instructions: Antibiotic Resistance, Upper Respiratory Infection, Adult, COVID-19. - Prescriptions for prednisone 10 mg Oral tablet - take 1 tablet by ORAL route every 12 hours for 14 days; 28 tablet. Albuterol Sulfate 90 mcg/actuation - inhale 1-2 puff by INHALATION route every 4-6 hours; 1 Inhaler. Guaifenesin AC 10- 100 mg/5 mL Oral Liquid - take 10 milliliter by ORAL route every 4 hours As needed; 240 milliliter. - Medication Reconciliation Form, Thank You Letter, Antibiotic Education, Prescription Opioid Use form. - Follow up: Emergency Department; When: As needed; Reason: Worsening of condition. Follow up: Private Physician; When: 2 - 3 days; Reason: Recheck today's complaints, Continuance of care, Re-evaluation by your physician. - Problem is new. - Symptoms have improved. Signatures: Dispatcher [employer] EDMS Rigo Wiley MD MD cha Williams, Irene, RN RN iw Marinas, Patrick, NP VENEREAL DISEASE INVESTIGATOR pm1 Yovana Caraballo RN RN ca1 Corrections: (The following items were deleted from the chart) 16:05 15:49 10/09/2019 15:49 Discharged to Home. Impression: Acute upper respiratory ca1 infection, unspecified. Condition is Stable. Forms are Medication Reconciliation Form, Thank You Letter, Antibiotic Education, Prescription Opioid Use. Follow up: Emergency Department; When: As needed; Reason: Worsening of condition. Follow up: Private Physician; When: 2 - 3 days; Reason: Recheck today's complaints, Continuance of care, Re-evaluation by your physician. Problem is new. Symptoms have improved. pm1
--- NOTE | 2019-10-09 15:50 | ER ---
Nurse's Notes [facility] Name: Marcie Obando Age: 54 yrs Sex: Female : 1965 Arrival Date: 10/09/2019 Time: 11:00 Bed 16 Private MD: Anup Harvey Diagnosis: Acute upper respiratory infection, unspecified Presentation: 10/08 11:06 Chief complaint: Patient states: cough, headache, body aches, lungs feels on fire, iw chest pressure, started one week ago Wednesday, felt better past two days but woke up this morning feeling worse, was swabbed for COVID on Wednesday at [facility], results still pending. Coronavirus screen: Surgical mask placed on patient. Patient moved to private room, placed in contact and droplet isolation with eye protection until further assessment. Patient reports a cough. Patient reports shortness of breath or difficulty breathing. Patient denies measured and/or subjective temperature greater than 100.4F prior to today's visit. Patient denies travel on a cruise ship or to a country the [facility] currently lists as an affected area. Patient denies contact with known and/or suspected case of COVID-19. Ebola Screen: Patient negative for fever greater than or equal to 101.5 degrees Fahrenheit, and additional compatible Ebola Virus Disease symptoms Patient denies exposure to infectious person. Patient denies travel to an Ebola-affected area in the 21 days before illness onset. No symptoms or risks identified at this time. Initial Sepsis Screen: Does the patient meet any 2 criteria? No. Patient's initial sepsis screen is negative. Does the patient have a suspected source of infection? No. Patient's initial sepsis screen is negative. Risk Assessment: Do you want to hurt yourself or someone else? Patient reports no desire to harm self or others. Onset of symptoms was September 30, 2019. 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: 12:47 LMP N/A - Hysterectomy ca1 Historical: - Allergies: 11: NKA; iw - Home Meds: 11:11 levothyroxine 88 mcg tab 1 tab once daily [Active]; tamsulosin 0.4 mg Oral cp24 1 cap iw nightly [Active]; Xarelto 20 mg Oral tab 1 tab once daily [Active]; Ambien 10 mg Oral tab 1 tab once daily [Active]; emgality 120 mg/ml injection monthly [Active]; amoxicillin 500 mg Oral tab 1 tab daily [Active]; Hyoscyamine Sulfate SL [Active]; - PMHx: 11:11 Bipolar disorder; blood clots; Hypertension; Hypothyroidism; Migraines; stage 3 renal iw disease; UTI; - PSHx: 11:11 Cholecystectomy; Knee surgery; Tonsillectomy; r shoulder; Hysterectomy; breast iw implants; kidney; - Immunization history:: Adult Immunizations up to date. - Social history:: Smoking status: Patient denies any tobacco usage or history of. Screenin:15 Abuse screen: Denies threats or abuse. Denies injuries from another. Nutritional ca1 screening: No deficits noted. Tuberculosis screening: No symptoms or risk factors identified. Fall Risk IV access (20 points). Assessment: 12:15 General: Appears in no apparent distress. comfortable, Behavior is calm, cooperative, ca1 appropriate for age. Pain: Complains of pain in chest Pain does not radiate. Pain currently is 8 out of 10 on a pain scale. Quality of pain is described as burning, heavy, Pain began a week ago Is intermittent. Neuro: Level of Consciousness is awake, alert, obeys commands, Oriented to person, place, time, situation. Cardiovascular: Heart tones S1 S2 present Capillary refill < 3 seconds Patient's skin is warm and dry. Rhythm is sinus rhythm. Respiratory: Airway is patent Respiratory effort is even, unlabored, Respiratory pattern is regular, symmetrical, Breath sounds are clear bilaterally. Respiratory: Reports cough that is dry, persistent since a week ago. GI: Abdomen is round non-distended, Bowel sounds present X 4 quads. Abd is soft and non tender X 4 quads. : No signs and/or symptoms were reported regarding the genitourinary system. EENT: No signs and/or symptoms were reported regarding the EENT system. Derm: Skin is intact, is healthy with good turgor, Skin is pink, warm \T\ dry. Musculoskeletal: Circulation, motion, and sensation intact. Capillary refill < 3 seconds. 13:15 Reassessment: Patient appears in no apparent distress at this time. Patient and/or ca1 family updated on plan of care and expected duration. Pain level reassessed. Patient is alert, oriented x 3, equal unlabored respirations, skin warm/dry/pink. 14:19 Reassessment: Patient appears in no apparent distress at this time. Patient and/or ca1 family updated on plan of care and expected duration. Pain level reassessed. Patient is alert, oriented x 3, equal unlabored respirations, skin warm/dry/pink. 15:11 Reassessment: Patient appears in no apparent distress at this time. Patient and/or ca1 family updated on plan of care and expected duration. Pain level reassessed. Patient is alert, oriented x 3, equal unlabored respirations, skin warm/dry/pink. 15:51 Reassessment: Patient appears in no apparent distress at this time. Patient is alert, ca1 oriented x 3, equal unlabored respirations, skin warm/dry/pink. Patient states feeling better. Patient states symptoms have improved. Vital Signs: 11:06 BP 140 / 115; Pulse 86; Resp 18 S; Temp 98.4; Pulse Ox 99% on R/A; Weight 81.65 kg; iw Height 5 ft. 4 in. (162.56 cm); Pain 10/10; 12:46 BP 134 / 98; Pulse 75; Resp 17 S; Pulse Ox 96% on R/A; ca1 13:15 BP 121 / 93; Pulse 76; Resp 24 S; Pulse Ox 96% on R/A; ca1 14:19 BP 129 / 85; Pulse 68; Resp 18 S; Pulse Ox 97% on R/A; ca1 15:11 BP 127 / 91; Pulse 62; Resp 17 S; Pulse Ox 99% on R/A; ca1 15:51 BP 132 / 88; Pulse 73; Resp 20 S; Pulse Ox 100% on R/A; ca1 11:06 Body Mass Index 30.90 (81.65 kg, 162.56 cm) iw ED Course: 11:00 Patient arrived in ED. as 11:00 Anup Harvey MD is Private Physician. as 11:07 Anup Ochoa, VERN is Primary Nurse. bp 11:09 Triage completed. iw 11:10 Morris Villar NP is PHCP. pm1 11:10 Rigo Wiley MD is Attending Physician. pm1 11:36 Primary Nurse role handed off by Anup Ochoa RN ca1 11:36 Acob, Yovana, RN is Primary Nurse. ca1 12:15 Patient has correct armband on for positive identification. Placed in gown. Bed in low ca1 position. Call light in reach. Side rails up X 1. Pulse ox on. NIBP on. evp strategy on. Warm blanket given. 12:20 Arm band placed on. ca1 12:44 No provider procedures requiring assistance completed. Initial lab(s) drawn, by me, ca1 sent to lab. EKG done, by ED staff, reviewed by Morris Villar NP. Inserted saline lock: 20 gauge in left antecubital area, using aseptic technique. Blood collected. 13:10 XRAY Chest (1 view) In Process Unspecified. EDMS 14:15 CT Chest For PE Angio In Process Unspecified. EDMS 16:03 IV discontinued, intact, bleeding controlled, No redness/swelling at site. Pressure ca1 dressing applied. Administered Medications: 12:56 Drug: Tussionex Pennkinetic ER 5 ml Route: PO; ca1 13:30 Follow up: Response: No adverse reaction; Marked relief of symptoms ca1 14:55 Drug: Decadron - Dexamethasone 10 mg Route: IVP; Site: left antecubital; ca1 15:52 Follow up: Response: No adverse reaction; Marked relief of symptoms ca1 14:56 Not Given (Physician Discretion): Albuterol HFA Inhaler 2 puffs Inhalation once pm1 15:02 Drug: Albuterol 2.5 mg Route: Inhalation; ca1 Outcome: 15:49 Discharge ordered by MD. pm1 16:04 Discharged to home ambulatory. ca1 16:04 Condition: stable 16:04 Discharge instructions given to patient, Instructed on discharge instructions, follow up and referral plans. medication usage, Demonstrated understanding of instructions, follow-up care, medications, Prescriptions given X 3. 16:05 Patient left the ED. ca1 Addendum: 10/16/2019 10:46 Addendum: COVID-19 Result: Negative result given to RN to notify pt. Contacted by: Dayana France RN. Notified pt of negative COVID 19 swab results. Pt advised that even with a negative test result they should remain in isolation until symptom free for 3 days without medication. Pt also advised to return to the ED for worsening symptoms. Signatures: Dispatcher [employer] Unique Dela Cruz RN RN dm5 BradleyGinna Irene, RN RN iw Morris Villar, PARKING ENFORCER PARKING ENFORCER pm1 Anup Ochoa, RN RN bp Yovana Caraballo, RN RN ca1
[2019-10-09 16:32] VITALS: TEMP 98.4
[2019-10-09 16:49] VITALS: BP 132/88; O2SAT 100
--- NOTE | 2019-10-10 06:40 | EKG ---
Test Date: 2019-10-09 Test Time: 12:28:59 Flavor Extractor: KELVIN MEASUREMENT RESULTS: Intervals: Rate: 82 IA: 134 QRSD: 72 QT: 374 QTc: 436 [place]: P: 17 IA: 134 QRS: 34 T: 44 INTERPRETIVE STATEMENTS: Normal sinus rhythm with sinus arrhythmia Normal ECG Compared to ECG 07/20/2017 10:35:56 No significant changes Electronically Signed On 10-10-19 06:39:44 CDT by Jurgen Dhillon
== END 2019-10-09 16:05 | disposition home or self-care (01) ==
LOC: ER 10:56
DX: J06.9 Acute upper respiratory infection, unspecified (principal); Z20.828 Contact with and (suspected) exposure to other viral communicable diseases; I10 Essential (primary) hypertension; E03.9 Hypothyroidism, unspecified; F31.9 Bipolar disorder, unspecified; Z79.01 Long term (current) use of anticoagulants
CPT/HCPCS: 93005; 87070; 85025; 80048; 36415; 83735; 85610; 80076; 87081; 84484; 83880; 87804 ×2; 71275; 71045; 96374; 99285; U0001; J1100

== ENCOUNTER 2020-01-04 15:21 | Emergency (ER) | payer OTHER ==
[2020-01-04] MEDS ORDERED: MORPHINE 4 MG/ML SYR ONE ×2 (17:44→19:29)
[2020-01-04] MEDS ORDERED: ONDANSETRON 4 MG/2 ML VIAL ONE ×2 (17:45→19:29)
[2020-01-04] MEDS ORDERED: NA CHLORIDE 0.9% 500 ML ONE (17:45)
[2020-01-04 17:58] LABS: Basophils % 1.5 % (0-1.3); Hematocrit 46.9 % (36.0-45.0); Lymphocytes % 27.6 % (15.3-44.8); MPV 8.6 fL (7.6-11.3); RBC Red Blood Cell Count 5.22 M/uL (3.86-4.86)
[2020-01-04 18:19] LABS: Bilirubin Direct 0.2 mg/dL (0-0.2); Bilirubin Total 0.6 mg/dL (0.2-1.0); Potassium 3.7 mmol/L (3.5-5.1); Protein, Total 6.9 g/dL (6.4-8.2)
[2020-01-04 18:20] LABS: Urine Blood NEGATIVE (NEG); Urine Glucose NEGATIVE (NEG); Urine Protein NEGATIVE (NEG)
--- NOTE | 2020-01-04 19:14 | ER ---
Nurse's Notes [facility] Name: Marcie Obando Age: 54 yrs Sex: Female : 1965 Arrival Date: 01/04/2020 Time: 15:25 Bed 19 Private MD: Anup Harvey Diagnosis: Lower abdominal pain, unspecified;Volume depletion, unspecified Presentation: 01/03 15:51 Chief complaint: Patient states: Has bilateral lower abdominal pain with lower back ll1 pains for 1 month. + fatigue, + nausea. + loss of appetite. Sent by Dr. Fields's office for further eval. Coronavirus screen: Client denies travel out of the [place] in the last 14 days. At this time, the client does not indicate any symptoms associated with coronavirus-19. Ebola Screen: Patient denies travel to an Ebola-affected area in the 21 days before illness onset. Initial Sepsis Screen: Does the patient meet any 2 criteria? No. Patient's initial sepsis screen is negative. Risk Assessment: Do you want to hurt yourself or someone else? Patient reports no desire to harm self or others. Onset of symptoms was December 05, 2019. 15:51 Method Of Arrival: Ambulatory ll1 15:51 Acuity: ROSSI 3 ll1 17:50 Initial Sepsis Screen: Does the patient have a suspected source of infection? No. ph Patient's initial sepsis screen is negative. Historical: - Allergies: 15:54 NKA; ll1 - PMHx: 15:54 Hypothyroidism; Bipolar disorder; Hypertension; stage 3 renal disease; blood clots; ll1 Migraines; UTI; - PSHx: 15:54 Cholecystectomy; Knee surgery; Tonsillectomy; r shoulder; Hysterectomy; breast ll1 implants; kidney; - Immunization history:: Flu vaccine is not up to date. - Social history:: Smoking status: Patient denies any tobacco usage or history of. Screenin:50 Abuse screen: Denies threats or abuse. Denies injuries from another. Nutritional ph screening: No deficits noted. Tuberculosis screening: No symptoms or risk factors identified. Fall Risk None identified. Assessment: 17:47 General: Appears in no apparent distress. uncomfortable, well groomed, Behavior is ph calm, cooperative, appropriate for age, Denies fever. Pain: Complains of pain in left low back and right low back Pain radiates to right lower quadrant and left lower quadrant Pain currently is 10 out of 10 on a pain scale. Pain began approx 1 month ago. Neuro: Level of Consciousness is awake, alert, obeys commands, Oriented to person, place, time, situation. Cardiovascular: Capillary refill < 3 seconds in bilateral fingers Patient's skin is warm and dry. Respiratory: Airway is patent Respiratory effort is even, unlabored, Respiratory pattern is regular, symmetrical. GI: Reports lower abdominal pain, nausea, Patient currently denies diarrhea, vomiting. : Reports pain in bilateral lower quadrant(s) in lower back urinary frequency, Denies burning with urination, inability to void. Derm: Skin is intact, is healthy with good turgor, Skin is pink, warm \T\ dry. Musculoskeletal: Circulation, motion, and sensation intact. Range of motion: intact in all extremities. 19:00 Reassessment: Patient appears in no apparent distress at this time. Patient and/or jb4 family updated on plan of care and expected duration. Pain level reassessed. Patient is alert, oriented x 3, equal unlabored respirations, skin warm/dry/pink. PT back from radiology. Vital Signs: 15:51 BP 140 / 102; Pulse 86; Resp 18; Temp 98.6; Pulse Ox 98% ; Weight 86.18 kg; Height 5 ll1 ft. 4 in. (162.56 cm); Pain 10/10; 17:50 BP 114 / 85; Pulse 55; Resp 18; Pulse Ox 100% on R/A; ph 19:00 BP 122 / 84; Pulse 58; Resp 16; Pulse Ox 100% on R/A; ph 19:37 BP 129 / 67; Pulse 72; Resp 18; Temp 98.8; Pulse Ox 100% ; Pain 4/10; jb4 15:51 Body Mass Index 32.61 (86.18 kg, 162.56 cm) ll1 ED Course: 15:25 Patient arrived in ED. mr 15:25 Anup Harvey MD is Private Physician. mr 15:53 Triage completed. ll1 15:55 Arm band placed on. ll1 17:11 Yesica Narayanan FNP-C is [facility]. mt 17:11 Dwight Beckford MD is Attending Physician. mt 17:24 Myers, Erika, RN is Primary Nurse. ph 17:40 Initial lab(s) drawn, by me, sent to lab. Inserted saline lock: 20 gauge in right ph antecubital area, using aseptic technique. Blood collected. 17:50 Patient has correct armband on for positive identification. Bed in low position. Call ph light in reach. Side rails up X 1. Pulse ox on. NIBP on. Door closed. Noise minimized. Warm blanket given. 18:57 CT Abd/Pelvis - IV Contrast Only In Process Unspecified. EDMS Administered Medications: 17:45 Drug: NS 0.9% 500 ml Volume: 500 ml; Route: IV; Rate: 1 bolus; Site: right antecubital; ph 19:27 Follow up: Response: No adverse reaction; IV Status: Completed infusion; IV Intake: ph 500ml 17:47 Drug: morphine 4 mg Route: IVP; Site: right antecubital; ph 18:14 Follow up: Response: No adverse reaction; Pain is decreased ph 17:47 Drug: Zofran (Ondansetron) 4 mg Route: IVP; Site: right antecubital; ph 18:14 Follow up: Response: No adverse reaction; Nausea is decreased ph 19:22 Drug: Zofran (Ondansetron) 4 mg Route: IVP; Site: right antecubital; jb4 19:25 Drug: morphine 4 mg {Note: Rass score 0.} Route: IVP; Site: right antecubital; jb4 19:37 Drug: Phenergan 12.5 mg Route: IVP; Infused Over: 2 mins; Site: right antecubital; jb4 Intake: 19:27 IV: 500ml; Total: 500ml. ph Outcome: 19:14 Discharge ordered by . kb 19:47 Patient left the ED. jb4 Signatures: Dispatcher [employer] EDMS Yesica Narayanan, SANJUANITA GUZMÁNP-Andrew Glasgowa, Vicki Erika Wilde RN RN Cali Rowley RN RN jbLeonora Mayo mt, Lynsay, RN RN ll1 Corrections: (The following items were deleted from the chart) 19:12 19:00 Reassessment: Patient appears in no apparent distress at this time. Patient ph and/or family updated on plan of care and expected duration. Pain level reassessed. Patient is alert, oriented x 3, equal unlabored respirations, skin warm/dry/pink. PT is back from Radiology ph
--- NOTE | 2020-01-04 19:14 | EDPHYS ---
Physician Documentation [facility] Name: Marcie Obando Age: 54 yrs Sex: Female : 1965 Arrival Date: 01/04/2020 Time: 15:25 Bed 19 Private MD: Anup Harvey ED Physician Dwight Beckford HPI: 01/03 17:52 This 54 yrs old Female presents to ER via Ambulatory with complaints of Back kb Pain, Abdominal Pain. 17:52 The patient presents with abdominal pain in the lower abdomen. Onset: The kb symptoms/episode began/occurred 3 week(s) ago. The symptoms radiate to back. Associated signs and symptoms: none. The symptoms are described as constant. Modifying factors: The symptoms are alleviated by nothing, the symptoms are aggravated by nothing. Severity of pain: At its worst the pain was moderate in the emergency department the pain is unchanged. The patient has not experienced similar symptoms in the past. The patient has been recently seen by a physician:. Pt reports she started having lower abd pain 3 weeks ago. 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 Had CT and urine culture on Wednesday that were negative. Followed up with Dr Harvey today for pain and was sent here for further evaluation. . Historical: - Allergies: 15:54 NKA; ll1 - PMHx: 15:54 Hypothyroidism; Bipolar disorder; Hypertension; stage 3 renal disease; blood clots; ll1 Migraines; UTI; - PSHx: 15:54 Cholecystectomy; Knee surgery; Tonsillectomy; r shoulder; Hysterectomy; breast ll1 implants; kidney; - Immunization history:: Flu vaccine is not up to date. - Social history:: Smoking status: Patient denies any tobacco usage or history of. ROS: 17:51 Constitutional: Negative for fever, chills, and weight loss, Cardiovascular: Negative kb for chest pain, palpitations, and edema, Respiratory: Negative for shortness of breath, cough, wheezing, and pleuritic chest pain, : Negative for injury, bleeding, discharge, and swelling, MS/Extremity: Negative for injury and deformity, Skin: Negative for injury, rash, and discoloration, Neuro: Negative for headache, weakness, numbness, tingling, and seizure. 17:51 Abdomen/GI: Positive for abdominal pain. 17:51 Back: Positive for pain at rest, of the low back area. Exam: 17:51 Constitutional: This is a well developed, well nourished patient who is awake, alert, kb and in no acute distress. Head/Face: Normocephalic, atraumatic. Chest/axilla: Normal chest wall appearance and motion. Nontender with no deformity. No lesions are appreciated. Cardiovascular: Regular rate and rhythm with a normal S1 and S2. No gallops, murmurs, or rubs. Normal PMI, no JVD. No pulse deficits. Respiratory: Lungs have equal breath sounds bilaterally, clear to auscultation and percussion. No rales, rhonchi or wheezes noted. No increased work of breathing, no retractions or nasal flaring. Abdomen/GI: Soft, non-tender, with normal bowel sounds. No distension or tympany. No guarding or rebound. No evidence of tenderness throughout. Back: No spinal tenderness. No costovertebral tenderness. Full range of motion. Skin: Warm, dry with normal turgor. Normal color with no rashes, no lesions, and no evidence of cellulitis. MS/ Extremity: Pulses equal, no cyanosis. Neurovascular intact. Full, normal range of motion. Neuro: Awake and alert, GCS 15, oriented to person, place, time, and situation. Cranial nerves II-XII grossly intact. Motor strength 5/5 in all extremities. Sensory grossly intact. Cerebellar exam normal. Normal gait. Vital Signs: 15:51 BP 140 / 102; Pulse 86; Resp 18; Temp 98.6; Pulse Ox 98% ; Weight 86.18 kg; Height 5 ll1 ft. 4 in. (162.56 cm); Pain 10/10; 17:50 BP 114 / 85; Pulse 55; Resp 18; Pulse Ox 100% on R/A; ph 19:00 BP 122 / 84; Pulse 58; Resp 16; Pulse Ox 100% on R/A; ph 19:37 BP 129 / 67; Pulse 72; Resp 18; Temp 98.8; Pulse Ox 100% ; Pain 4/10; jb4 15:51 Body Mass Index 32.61 (86.18 kg, 162.56 cm) ll1 MDM: 17:17 Patient medically screened. kb 17:50 Data reviewed: vital signs, nurses notes. Data interpreted: Pulse oximetry: on room air kb is 98 %. Interpretation: normal. Counseling: I had a detailed discussion with the patient and/or guardian regarding: the historical points, exam findings, and any diagnostic results supporting the discharge/admit diagnosis, lab results, radiology results, the need for outpatient follow up, a family practitioner, to return to the emergency department if symptoms worsen or persist or if there are any questions or concerns that arise at home. 01/03 17:17 Order name: Basic Metabolic Panel; Complete Time: 18:25 kb 01/03 17:17 Order name: CBC with Diff; Complete Time: 18:25 kb 01/03 17:17 Order name: Hepatic Function; Complete Time: 18:25 kb 01/03 17:17 Order name: Lipase; Complete Time: 18:25 kb 01/03 18:14 Order name: Urine Dipstick--Ancillary (enter results); Complete Time: 18:25 mt 01/03 18:32 Order name: CT Abd/Pelvis - IV Contrast Only kb 01/03 17:17 Order name: IV Saline Lock; Complete Time: 17:47 kb 01/03 17:17 Order name: Labs collected and sent; Complete Time: 17:47 kb 01/03 17:17 Order name: Urine Dipstick-Ancillary (obtain specimen); Complete Time: 18:14 kb Administered Medications: 17:45 Drug: NS 0.9% 500 ml Volume: 500 ml; Route: IV; Rate: 1 bolus; Site: right antecubital; ph 19:27 Follow up: Response: No adverse reaction; IV Status: Completed infusion; IV Intake: ph 500ml 17:47 Drug: morphine 4 mg Route: IVP; Site: right antecubital; ph 18:14 Follow up: Response: No adverse reaction; Pain is decreased ph 17:47 Drug: Zofran (Ondansetron) 4 mg Route: IVP; Site: right antecubital; ph 18:14 Follow up: Response: No adverse reaction; Nausea is decreased ph 19:22 Drug: Zofran (Ondansetron) 4 mg Route: IVP; Site: right antecubital; jb4 19:25 Drug: morphine 4 mg {Note: Rass score 0.} Route: IVP; Site: right antecubital; jb4 19:37 Drug: Phenergan 12.5 mg Route: IVP; Infused Over: 2 mins; Site: right antecubital; jb4 Disposition: 01/04 09:13 Co-signature as Attending Physician, Dwight Beckford MD I agree with the assessment and kdr plan of care. Disposition: 01/04/20 19:14 Discharged to Home. Impression: Lower abdominal pain, unspecified, Volume depletion, unspecified. - Condition is Stable. - Discharge Instructions: Abdominal Pain, Adult, Uxoh-an-Aasi. - Prescriptions for Zofran 4 mg Oral Tablet - take 1 tablet by ORAL route every 6 hours As needed; 20 tablet. Diclofenac Sodium 75 mg Oral Tablet, Delayed Release (E.C.) - take 1 tablet by ORAL route 2 times per day As needed; 30 tablet. - Medication Reconciliation Form, Thank You Letter, Antibiotic Education, Prescription Opioid Use form. - Follow up: Emergency Department; When: As needed; Reason: Worsening of condition. Follow up: Private Physician; When: 2 - 3 days; Reason: Recheck today's complaints, Continuance of care, Re-evaluation by your physician. Signatures: Dispatcher [employer] EDMS Yesica Narayanan, RADIOLOGIST PHYSICIAN-C RADIOLOGIST PHYSICIAN-Dwight Wayne MD MD kdr Erika Myers RN RN ph Cali Baldwin RN RN jb4 Jahaira Prajapati RN RN ll1 Corrections: (The following items were deleted from the chart) 01/03 19:14 19:14 01/04/2020 19:14 Discharged to Home. Impression: Lower abdominal pain, kb unspecified. Condition is Stable. Forms are Medication Reconciliation Form, Thank You Letter, Antibiotic Education, Prescription Opioid Use. Follow up: Emergency Department; When: As needed; Reason: Worsening of condition. Follow up: Private Physician; When: 2 - 3 days; Reason: Recheck today's complaints, Continuance of care, Re-evaluation by your physician. kb 19:47 19:14 01/04/2020 19:14 Discharged to Home. Impression: Lower abdominal pain, jb4 unspecified; Volume depletion, unspecified. Condition is Stable. Discharge Instructions: Abdominal Pain, Adult, [id number]. Prescriptions for Zofran 4 mg Oral Tablet - take 1 tablet by ORAL route every 6 hours As needed; 20 tablet, Diclofenac Sodium 75 mg Oral Tablet, Delayed Release (E.C.) - take 1 tablet by ORAL route 2 times per day As needed; 30 tablet. and Forms are Medication Reconciliation Form, Thank You Letter, Antibiotic Education, Prescription Opioid Use. Follow up: Emergency Department; When: As needed; Reason: Worsening of condition. Follow up: Private Physician; When: 2 - 3 days; Reason: Recheck today's complaints, Continuance of care, Re-evaluation by your physician. kb
[2020-01-04] MEDS ORDERED: PROMETHAZINE INJ 25 MG/ML AMP ONE (19:46)
[2020-01-04 21:03] VITALS: O2SAT 100
[2020-01-04 21:05] VITALS: BP 129/67; TEMP 98.8
--- NOTE | 2020-01-05 00:19 | RAD REPORT ---
EXAM DESCRIPTION: CTAbdomen Pelvis W Contrast - 01/04/2020 10:23 pm CLINICAL HISTORY: Abdominal pain. ABD PAIN COMPARISON: Abdomen Pelvis W Contrast dated 08/10/2019; CT ABD PELVIS W CONTRAST dated 06/22/2015; CT ABD PELVIS W CONTRAST dated 04/17/2015; CT ABD PELVIS W CONTRAST dated 09/21/2012 TECHNIQUE: Biphasic CT imaging of the abdomen and pelvis was performed with 100 ml non-ionic IV cont rast. All CT scans are performed using dose optimization technique as appropriate and may include automated exposure control or mA/KV adjustment according to patient size. FINDINGS: The lung bases are clear. The biliary tree is mildly prominent status post cholecystectomy. The spleen, pancreas, and adrenal g lands are normal. Right kidney contains a 10 mm cyst in the anterosuperior cortex. 3 cm angiomyelolip kym suspected anterior inferior cortex left kidney without significant change. No bowel obstruction, free air, free fluid or abscess. IVC filter is in place. The appendix is normal . No evidence of significant lymphadenopathy. No suspicious bony findings. IMPRESSION: No acute intra-abdominal or pelvic finding. Mild biliary dilatation is noted which may all be secondary to prior cholecystectomy. If the patient has clinical findings of possible biliary obstruction, MRCP may be of value.
--- OUTSIDE RECORDS SUMMARY | 2020-01-10 17:16 | XMS REPORT | Continuity of Care Document ---
:1965 Author Organization [facility] t Address [address] [place] [address] Care Team Providers Name Role Phone Denis Carr MD Attending Clinician Problems This patient has no known problems. Allergies, Adverse Reactions, Alerts This patient has no known allergies or adverse reactions. Medications This patient has no known medications. Procedures This patient has no known procedures. Encounters Start End Encounter Admission Attending Care Care Encounter Source Date/Time Date/Time Type Type Clinicians Facility Department ID 2020-01-03 2020-01-03 [place] [id number] 00:00:00 00:00:00 Denis Burr [id number] [facility] [id number] [facility] [phone] [address] 2019-12-30 2019-12-[facility] [id number] 00:00:00 00:00:00 Denis Burr [id number] [facility] [id number] [facility] [phone] [address] 2019-10-15 2019-10-15 [facility] [id number] 00:00:00 00:00:00 Denis Burr [id number] [facility] [id number] [facility] [phone] [address] 2019-06-20 2019-06-20 [facility] [id number] 00:00:00 00:00:00 Denis Guzman Aminah [id number] [employer] [id number] [facility] [id number] [address] 2018-12-14 2018-12-14 [facility] [id number] 00:00:00 00:00:00 Denis Guzman Aminah [id number] [facility] [id number] [facility] [phone] [address] 2018-12-12 2018-12-12 [facility] [id number] 00:00:00 00:00:00 Denis Gregorioton [id number] [employer] [id number] [facility] [phone] [address] Results This patient has no known results.
--- OUTSIDE RECORDS SUMMARY | 2020-01-10 17:16 | XMS REPORT | Summary of Care ---
:1965 Author Organization [facility] Address [address] [place] [id number] Care Team Providers Name Role Phone Nicolás Harvey Primary Care Provider Reason for Visit Reason Comments Refill Request Encounter Details Date Type Department Care Team Description 10/15/2019 Refill [facility] Denis Carr MD Refill Request Neurology-[address] [place] [id number] [address] [place] [address] [phone] Allergies No Known Allergiesdocumented as of this encounter (statuses as of 10/16/2019) Medications Medication Sig Dispensed Refills Start Date [...] trazodone 50 mg 0 Active tablet tablet SUMAtriptan 6 Inject 6 4.5 mL 0 [...] UNDER subcutaneous THE SKIN EVERY injection MONTH TOPIRAMATE 50 mg TAKE THREE 180 tablet 2 10/16/2019 Active tablet TABLETS BY MOUTH TWICE A DAY topiramate 50 mg Take 3 tablets 540 tablet 2 01/09/2019 Discontinued tablet by mouth 2 0 (two) times daily. documented as of this encounter (statuses as of 10/16/2019) Active Problems Problem Noted Date Right knee pain 04/16/2016 Left foot pain 08/01/2015 documented as of this encounter (statuses as of 10/16/2019) Social History Tobacco Use Types Packs/Day Years [...] (SHINGRIX) (1 of 2) INFLUENZA VACCINE (#1) 2019 Depression Screening 01/18/2020 01/17/2019 PNEUMOCOCCAL 0-64 YEARS COMBINED Aged Out No longer eligible based on SERIES patient's age to complete this topic documented as of this encounter Results Not on filedocumented in this encounter Insurance Payer Benefit Plan / Group Subscriber ID Effective Dates Phone Address Type AETVENKAT ALEJANDRA AET[employer] TRES [id number] 2016-Present PPO documented as of this encounter
== END 2020-01-04 19:47 | disposition home or self-care (01) ==
LOC: ER 15:21
DX: E86.9 Volume depletion, unspecified (principal); I12.9 Hypertensive chronic kidney disease with stage 1 through stage 4 chronic kidney disease, or unspecified chronic kidney disease; N18.30 Chronic kidney disease, stage 3 unspecified
CPT/HCPCS: 96361; 85025; 80048; 36415; 80076; 81003; 83690; 74177; 96375; 96374; 99284; Q9967; J2550; J7040; J2405 ×2

== ENCOUNTER 2020-09-26 20:56 | Observation (INO) | payer OTHER ==
--- OUTSIDE RECORDS SUMMARY | 2020-09-26 20:59 | XMS REPORT | Continuity of Care Document ---
:1965 Author Organization [facility] t Address [address] [place] [address] Care Team Providers Name Role Phone Asked, Pcp Primary Care Physician Unavailable Lab, Fam Pob I Attending Clinician Unavailable Evelin Huynh MD Attending Clinician Thomas Carr MD Attending Clinician Darshan RODRIGUEZ Attending Clinician Winnie NUÑEZ Attending Clinician Unavailable Allan PORRAS Attending Clinician Unavailable Dante RODRIGUEZ Attending Clinician MD DARSHAN Attending Clinician Unavailable Tammy Rosas MD Attending Clinician Jemal NUÑEZ Attending Clinician Unavailable Tito PORRAS Attending Clinician Unavailable Shaunrer Cameron ORDAZ Attending Clinician Richy RODRIGUEZ MLady Attending Clinician Ute RODRIGUEZ MLady Attending Clinician Mehul RODRIGUEZ Attending Clinician Yossi ROSALES Attending Clinician MD Evelin LOCKHART. 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 Added automatic ally from request for surgery [id number] ELODIA (acute ELODIA (acute Disease Active 2019-04 [place] kidney kidney 0-10 Method[facility] injury) injury) 00:00: st 00 Abdominal Abdominal Disease Active 2019-04 Overview: [place] pain, pain, 0-10 [facility] Methodi generalize generalize 00:00: g of this d d note might be different from the original. Added automatic ally from request for surgery [id number] Allergies, Adverse Reactions, Alerts This patient has no known allergies or adverse reactions. Social History Social Habit Start Date Stop Date Quantity Comments Source Tobacco use and 2020-02-21 2020-02-21 Never used [place] ethodist exposure 00:00:00 00:00:00 Alcohol intake 2020-02-21 2020-02-21 Ex-drinker Mono Romano thodist 00:00:00 00:00:00 (finding) Alcohol Comment 2020-02-05 2020-02-05 occasional [place] ethodist 00:00:00 00:00:00 Sex [birth year] At [birth year] F [place] ethodist 00:00:00 00:00:00 Smoking Status Start Date Stop Date Source Never smoker [place] [facility] t Medications Ordered Filled Start Stop Current Ordering Indication Dosage Frequency Signature Comments Components Source Medication Medication Date Date Medication? Clinician (SIG) Name Name rivaroxaban 2019-04 Yes 20mg QD Take 20 mg [place] (XARELTO) 1-18 by mouth Method i 20 mg 15:56: daily. st tablet 59 amoxicillin 2019-04 Yes 500mg QD Take 500 H oucelia (AMOXIL) 1-18 mg by Methodi 500 MG 15:56: mouth st capsule 59 daily. 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 st tablet 59 tamsulosin 2019-04 Yes .4mg QD Take 0.4 Cecily st[place] (FLOMAX) 1-18 mg by Methodi 0.4 mg 15:56: mouth st capsule 59 daily. topiramate 2019-04 Yes 150mg Q.5D Take 150 [place] (TOPAMAX) 1-18 mg by Methodi 50 MG 15:56: mouth 2 st tablet 59 (two) times a day. fluticasone 2019-04 Yes QD Inhale 1 [place] -umeclidin- 1-18 inhalation Me thodi vilanter 15:56: s daily. st (Trelegy 59 Ellipta) 100-62.5-25 mcg blister with device powder for inhalation zolpidem 2019-04 Yes 10mg QD Take 10 mg Cec[facility] st[place] (AMBIEN) 10 1-18 by mouth Meth monika mg tablet 15:56: nightly. st 59 levothyroxi 2019-04 Yes 88ug QD Take 88 [place] st[place] ne 1-18 mcg by Methodi (SYNTHROID) 15:56: mouth st 88 mcg 59 daily. tablet galcanezuma 2019-04 Yes 120mg Q30D Inject 120 [place] b-gnlm 1-18 mg under Methodi (Emgality 15:56: the skin st Pen) 120 59 every 30 mg/mL pen (thirty) days. promethazin 2019-04 Yes 25mg Q6H Take 25 mg [place] e 1-18 by mouth Methodi (PHENERGAN) 15:56: every 6 st 25 MG 59 (six) tablet hours as needed for nausea or vomiting. lansoprazol 2019-04 Yes 30mg QD Take 30 mg [place] e 1-18 by mouth Methodi (PREVACID) 15:56: daily. st 30 MG 59 capsule enoxaparin 2019-04 2020- No 80mg Q.5D Inject 0.8 [place] (LOVENOX) 0-31 11-02 mL (80 mg Meth monika 80 mg/0.8 00:00: 23:59 total) st mL syringe 00 :00 under the skin 2 (two) times a day for 2 days .DVT, presence of IVC filter, with pre procedure. ondansetron 2019-04 2020- No 8mg Q8H Take 1 Cecily ston ODT (Zofran 0-27 11-26 tablet (8 Me thodi ODT) 8 MG 00:00: 23:59 mg total) st disintegrat 00 :00 by mouth ing tablet every 8 (eight) hours as needed for nausea or vomiting for up to 30 days. pantoprazol 2019-04 No 40mg QD Take 1 Cecily ston e 002-20 tablet (40 Methodi (PROTONIX) 00:00: 00:00 mg total) s t 40 MG EC 00 :00 by mouth tablet daily for 30 days. methocarbam 2019-04 No 500mg Q.[id number] Take 1 [place] oL 18 02-19 [id number] tablet Method i (ROBAXIN) 00:00: 23:59 3D ([address] 500 MG 00 :00 total) by tablet mouth 3 (three) times a day for 30 days. ondansetron 2019-04 No 4mg Q8H Take 1 Cecily ston ODT 02-19 tablet (4 Methodi (ZOFRAN-ODT 00:00: 23:59 mg total) st ) 4 MG 00 :00 by mouth disintegrat every 8 ing tablet (eight) hours as needed for nausea or vomiting for up to 30 days. Immunizations Ordered Immunization Filled Immunization Date Status Commen ts Source Name Name FLUCELVAX QUAD PF 2020-01-14 [facility] 00:00:00 [facility]ism Vital Signs Vital Name Observation Time Observation Value Comments Source Systolic blood 2020-02-05 18:20:00 107 mm[Hg] Katiuska n Yazdanism pressure Diastolic blood 2020-02-05 18:20:00 74 mm[Hg] Guillermo on Yazdanism pressure Heart rate 2020-02-05 18:20:00 60 /min [place] Body temperature 2020-02-05 18:20:00 36.56 Anushka Cristy ton [facility] Respiratory rate 2020-02-05 18:20:00 20 /min Crisyt ton [facility] Oxygen saturation in 2020-02-05 18:20:00 100 /min Mono Sanchez Arterial blood by Pulse oximetry Body height 2020-02-05 08:45:00 162.6 cm Mono Sanchez Body weight 2020-02-05 08:45:00 81.449 kg Mono Sanchez BMI 2020-02-05 08:45:00 30.82 kg/m2 Mono Sanchez Procedures Procedure Date / Time Performing Source Performed Clinician TROPONIN 2020-02-05 Le, Lindsey [facility] 16:15:00 [facility] XR CHEST 1 VW PORTABLE 2020-02-05 [facility] [place] 13:37:00 Bladimir Yazdanism ECG 12-LEAD 2020-02-05 [facility] 13:32:02 Bladimirgale Sanchez TROPONIN 2020-02-05 [facility] 13:22:00 Bladimirgale Sanchez SURGICAL PATHOLOGY REQUEST 2020-02-05 Le, Lindsey Muniznancy on 13:05:00 Yazdanism LA AN ELECTIVE ENDOTRACHEAL AIRWAY 2020-02-05 [facility] 11:23:41 Bladimirgale Sanchez ACTIVATED CLOTTING TIME 2020-02-05 Le, Lindsey [place] 11:12:00 [facility]danism ARTERIAL BLOOD GAS, CORRECTED 2020-02-05 Le, Lindsey Anatoly [place] 11:10:00 [facility]ism SODIUM LEVEL, SYRINGE 2020-02-05 Le, Lindsey [place] 11:10:00 [facility] HEMOGLOBIN, SYRINGE 2020-02-05 Le, Lindsey [place] 11:10:00 [facility] POTASSIUM, SYRINGE 2020-02-05 Le, Lindsey [place] 11:10:00 [facility]ism IONIZED CALCIUM, ARTERIAL 2020-02-05 Le, Lindsey Munizto n 11:10:00 Y[facility]danism GLUCOSE LEVEL, SYRINGE 2020-02-05 Le, Lindsey [place] 11:10:00 Yazdanism PLACEMENT, FILTER, INFERIOR VENA 2020-02-05 Le, Lindsey [facility] 10:23:00 Y[facility]danism POTASSIUM, SYRINGE 2020-02-05 Le, Lindsey [place] 08:41:00 Y[facility]danism HEMOGLOBIN, SYRINGE 2020-02-05 Le, Lindsey [place] 08:41:00 Yazdanism SODIUM LEVEL, SYRINGE 2020-02-05 Le, Lindsey [place] 08:41:00 Yazdanism GLUCOSE LEVEL, SYRINGE 2020-02-05 Le, Lindsey [place] 08:41:00 Y[facility]danism TYPE AND SCREEN 2020-02-05 Le, Lindsey [place] 07:32:00 Y[facility]danism PREPARE RBC 2020-02-05 Le, Lindsey [place] 07:32:00 Y[facility]danism COVID-19 QUALITATIVE PCR 2020-02-01 Le, Lindsey [place] 10:46:00 Yazdanism [id number] 2020-01-30 Aguila Rosas 15:05:00 Tammy Yazdanism POC URINALYSIS DIPSTICK 2020-01-30 Aguila Rosas 15:04:00 Tammy Yazdanism CBC WITH PLATELET AND DIFFERENTIAL 2020-01-21 Bradley Melton [place] 05:12:00 Yazdanism BASIC METABOLIC PANEL 2020-01-21 [facility]:12[facility] Yazdanism ESTIMATED GFR 2020-01-21 [facility] 05:12:00 Y[facility]danism MANUAL DIFFERENTIAL 2020-01-21 Bradley Melton [place] 05:12:00 Yazdanism HC COMPLETE BLD COUNT W/AUTO DIFF 2020-01-20 [facility] 10:09:00 Yazdanism PROTHROMBIN TIME WITH INR 2020-01-20 [facility]ism PARTIAL THROMBOPLASTIN TIME (PTT) 2020-01-20 [facility] 10:09:00 Yazdanism BASIC METABOLIC PANEL 2020-01-20 [facility] 10:09:00 Yazdanism ANTI XA, UNFRACTIONATED 2020-01-20 [facility]09[facility] Y[facility]dan[facility] ESTIMATED GFR 2020-01-20 [facility] 10:09:00 Yazdanism ANTI XA, UNFRACTIONATED 2020-01-20 [facility] 04:29:00 Yazdanism ANTI XA, UNFRACTIONATED 2020-01-19 [facility] 21[facility]33[facility] ABDOMEN PELVIS W CONTRAST 2020-01-19 Bradley Melton [facility] 07:36:19 Yazdanism HC COMPLETE BLD COUNT W/AUTO DIFF 2020-01-19 [facility] 05:19:00 Yazdanism BASIC METABOLIC PANEL 2020-01-19 [facility] 05:19:00 Yazdanism ANTI XA, UNFRACTIONATED 2020-01-19 [facility] 05:19:00 Yazdanism ESTIMATED GFR 2020-01-19 [facility] 05:19:00 Yazdanism HC COMPLETE BLD COUNT W/AUTO DIFF 2020-01-18 Qing Unger [place] 04:00:00 Yazdanism BASIC METABOLIC PANEL 2020-01-18 Qing Unger [place] 04:00:00 Yazdanism ANTI XA, UNFRACTIONATED 2020-01-18 Qing Unger [place] 04:00:00 Yazdanism ESTIMATED GFR 2020-01-18 Qing Unger [place] 04:00:00 Yazdanism ANTI XA, UNFRACTIONATED 2020-01-17 UngerQing banks Lady [place] 21:18:00 Yazdanism SURGICAL PATHOLOGY REQUEST 2020-01-17 Colby Lockhart on 15:08:00 Yazdanism ESOPHAGOGASTRODUODENOSCOPY (EGD) 2020-01-17 Qing Unger Lady [place] 12:06:00 Yazdanism COLONOSCOPY 2020-01-17 Qing Unger Lady [place] 12:06:00 Yazdanism ANTI XA, UNFRACTIONATED 2020-01-17 [facility] 02[facility] Yazdanism CBC HEMOGRAM 2020-01-17 [facility] 02:42:00 Yazdanism ANTI XA, UNFRACTIONATED 2020-01-16 [facility] 20:34:00 Yazdanism ECG PRE/POST OP 2020-01-16 Natalie Sy [place] 13:32:14 Yazdanism PARTIAL THROMBOPLASTIN TIME (PTT) 2020-01-16 [facility] 11:45:00 Yazdanism ANTI XA, UNFRACTIONATED 2020-01-16 [facility] 11:45:00 Yazdanism PROTHROMBIN TIME WITH INR 2020-01-16 [facility] 11:45:00 Yazdanism HC COMPLETE BLD COUNT W/AUTO DIFF 2020-01-16 [facility] [place] 05:20:00 Yazdanism BASIC METABOLIC PANEL 2020-01-16 [facility] 04:00:00 Yazdanism ESTIMATED GFR 2020-01-16 [facility] 04:00:[address] VENOGRAM ABDOMEN & PELVIS 2020-01-14 Fernando Hendricks 18:56:30 Yazdanism US DUPLEX VENOUS LOWER EXTREMITY 2020-01-14 [facility] BILATERAL 10:05:00 Yazdanism HC COMPLETE BLD COUNT W/AUTO DIFF 2020-01-14 [facility] 06:05:00 Yazdanism BASIC METABOLIC PANEL 2020-01-14 [facility] [place] 06:05:00 Yazdanism ESTIMATED GFR 2020-01-14 [facility] 06:05:00 Yazdanism PROTHROMBIN TIME WITH INR 2020-01-14 Bradley Mletonto n 06:05:00 Yazdanism US RENAL 2020-01-13 Colby Lockhart [facility] 21:30:00 Yazdanism LACTIC ACID LEVEL, SEPSIS - NOW 2020-01-13 Rehrer, [facility] AND REPEAT 2X EVERY 3 HOURS 18:46:00 Cameron Meth odist TROPONIN 2020-01-13 Rehrer, [facility] 18:46:00 Cameron Yazdanism LACTIC ACID LEVEL, SEPSIS - NOW 2020-01-13 Rehrer, [facility] AND REPEAT 2X EVERY 3 HOURS 14:50:00 Cameron Meth odist TROPONIN 2020-01-13 Rehrer, [facility] 14:50:00 Cameron Yazdanism THYROID STIMULATING HORMONE 2020-01-13 Rehrer, [facility] ton 14:50:00 Cameron Yazdanism COVID-19 QUALITATIVE PCR 2020-01-13 [facility] 14:50:00 Cameron Yazdanism XR CHEST 1 VW PORTABLE 2020-01-13 [facility] 12:19:10 Cameron Yazdanism TYPE AND SCREEN 2020-01-13 [facility] 11:45:[address] ABDOMEN PELVIS WO CONTRAST 2020-01-13 Rehrer, [facility] [place] 11:36:06 Cameron Yazdanism HC COMPLETE BLD COUNT W/AUTO DIFF 2020-01-13 [facility] 10:51:00 Cameron Yazdanism PROTHROMBIN TIME WITH INR 2020-01-13 [facility], [facility] n 10:51:00 Cameron Yazdanism PARTIAL THROMBOPLASTIN TIME (PTT) 2020-01-13 Rehrer, [facility] 10:51:00 Cameron Yazdanism URINALYSIS SCREEN AND MICROSCOPY, 2020-01-13 [facility], [facility] WITH REFLEX TO CULTURE 10:51:00 Cameron Yazdanism HCG QUALITATIVE, URINE SCREEN 2020-01-13 [facility], [facility] [place] 10:51:00 Cameron Yazdanism COMPREHENSIVE METABOLIC PANEL 2020-01-13 [facility] [place] 10:51:00 Cameron Yazdanism PHOSPHORUS LEVEL 2020-01-13 [facility], [facility] 10:51:00 Cameron Yazdanism MAGNESIUM LEVEL 2020-01-13 [facility], [facility] 10:51:00 Cameron Yazdanism LACTIC ACID LEVEL, SEPSIS - NOW 2020-01-13 Rehrer, [facility] AND REPEAT 2X EVERY 3 HOURS 10:51:00 Cameron Meth oddarrick LIPASE LEVEL 2020-01-13 Rehrer, [facility] 10:51:00 Cameron Yazdanism CREATINE KINASE, TOTAL (CPK) 2020-01-13 Rehrer, [place] Cecily ston 10:51:00 Cameron Sanchez TROPONIN 2020-01-13 Rehrer, [facility] 10:51:00 Cameron Yazdanism B NATRIURETIC PEPTIDE 2020-01-13 Rehrer, [facility] 10:51:00 Cameron Yazdanism ESTIMATED GFR 2020-01-13 Rehrer, [facility] 10:51:00 Cameron Yazdanism URINE CULTURE 2020-01-13 [facility] 10:51:00 Cameron Yazdanism Plan of Care Planned Activity Planned Date Details Comments Source Future Scheduled 2020-11-03 INFL[place]ZA VACCINE [place] [facility] Test 00:00:00 [code = INFLUENZA VACCINE] Future Scheduled 2015 BREAST CANCER [place] Me thodist Test 00:00:00 SCREENING [code = BREAST CANCER SCREENING] Future Scheduled 2015 COLONOSCOPY SCREENING [place] [facility] Test 00:00:00 [code = COLONOSCOPY SCREENING] Future Scheduled 2015 SHINGLES VACCINES [place] [facility] Test 00:00:00 (#1) [code = SHINGLES VACCINES (#1)] Future Scheduled 1986 Screening for [place] [facility]odist Test 00:00:00 malignant neoplasm of cervix (procedure) [code = 151355895] Future Scheduled 1983 Hepatitis C screening [place] [facility] Test 00:00:00 (procedure) [code = 613931238] Future Scheduled 1977 COVID-19 VACCINE (1) Cecily ston [facility] Test 00:00:00 [code = COVID-19 VACCINE (1)] Encounters Start End Encounter Admission Attending Care Care Encounter Source Date/Time Date/Time Type Type Clinicians Facility Department ID 2020-09-26 2020-09-26 Laboratory Lab, Adc [facility] [id number] 13:29:23 13:49:23 Only Fam Pob I Health [id number] [place] 4.2.7.2.686 Professio [id number] nal [address] 2020-09-24 2020-09-24 [facility] [id number] 10:40:37 23:59:00 Encounter [place] [facility] [id number] CARE [id number] PAVILLION [id number] 2020-08-30 2020-08-30 [facility] [id number] 00:00:00 00:00:00 Denis Gregorioton [id number] [place] [id number] Professio [id number] nal 092 [facility] 2020-08-13 2020-08-13 [facility] [id number] 08:23:48 23:59:00 Encounter [place] PRIMARY [id number] CARE 4.2.7.2.686 PAVILLION [id number] 2020-08-13 2020-08-13 [facility] [id number] 08:18:13 09:11:59 Visit [place] PRIMARY [id number] CARE 4.2.7.2.686 PAVILLION [id number] 2020-02-22 2020-02-22 Outpatient LINDSEY [facility] [id number] [place] 00:00:00 00:00:[address] 2020-02-05 2020-02-05 Outpatient LE, LINDSEY [facility] [id number] [place] 00:00:00 00:00:[address] 2020-02-01 2020-02-01 Outpatient LINDSEY [facility] [id number] [place] 00:00:00 00:00:[address] 2020-02-01 2020-02-01 Outpatient DARSHAN, LINDSEY [facility] [id number] [place] 00:00:00 00:00:[address] 2020-01-30 2020-01-30 Outpatient ANA [facility] [id number] [place] 00:00:00 00:00:00 AGUILA [address] 2020-01-13 2020-01-21 Inpatient RICHY [facility] [id number] 37 [place] 00:00:00 00:00:00 COLBY [address] Results Test Description Test Time Test Comments Results Result Comments Source Surgical pathology request 2020-02-07 08:38:51 Test Item Value Reference Range Interpretation Comme nts Case number (test code = 8111385) [id number] Surgical pathology report (test code = See link below for PDF Lab R eport 2259) Result status (test code = 6650357) This is Final Report for [id number] [place] MethodistXR Chest 1 Vw [id number] 15:02:55Hm Interface, Radiology Results 02/05/2020 3:06 PM CST EXAMINATION: XR CHEST 1 VW PORTABLECLINICAL HISTORY: chest painCOMPARISON: 01/13/2020IMPRESSION:Heart and mediastinum stable. No significant pleural effusion. Breast implants are noted. Lungs are clear. [facility]-[id number] MethodistECG 12 [id number] 14:20:16 Test Item Value Reference Range Interpretation Comments Ventricular rate (test 69 code = 253) Atrial rate (test code 69 = 255) LA interval (test code 150 = 266) QRSD interval (test 78 code = 260) QT interval (test code 416 = 264) QTC interval (test code 445 = 265) P axis 1 (test code = 33 267) QRS axis 1 (test code = 16 268) T wave axis (test code 37 = 270) EKG impression (test Normal sinus code = 273) rhythm-Nonspecific T wave abnormality-Abnormal ECG-In automated comparison with ECG of 16-JAN-2020 13:32,-Nonspecific T wave abnormality now evident in Anterior leads- [place] MethodistPrepare [id number] 13:34:00 Test Item Value Reference Range Interpretation Comments Product name (test code Red Blood Cells -1, = 25) Leukored Unit number (test code [id number] = [id number]) Product code (test code Q7447T78 = 3092) Dispense status (test Returned to BB not code = 24) transfused Blood expiration date [id number] (test code = 302) Blood type code (test 6200 code = 308) Blood type (test code = A POSITIVE 1314) Compatibility (test Compatible code = 6400) [place] [id number] 11:23:41Bladimir Howell MD 02/05/2020 11:24 AMAirwayPerformed by: Bladimir Howell MDAuthorized by: Bladimir Howell MD Location: ORUrgency: ElectiveDifficult Airway: No Anesthesiologist: Bladimir Howell MDPerformed by: resident/CATALYST CONCENTRATION OPERATOR and anesthesiologistPreoxygenated with 100%O2: Yes C-spine Precautions Maintained Throughout: Yes Mask Ventilation: Easy maskFinal Airway Type: Endotracheal airwayFinal Endotracheal Airway: ETTCuffed: Yes Technique Used: Direct laryngoscopyDevices/Methods Used in Placement: Intubating styletInsertion Site: OralBlade Type: MillerLaryngoscope Blade/Videolaryngoscope Blade Size: 2ETT Size (mm): 7.0Cuff at minimum occlusion pressure: Yes Measured from: LipsETT to Lips (cm): 22Placement Verified by: CO2 detection, direct visualization and equal breath sounds Laryngoscopic view: Grade I - full view of glottisRapid Sequence Induction (RSI): No Modified RSI: No Number of Attempts at Approach: 1[place] MethodistArterial blood gas, [id number] 11:16:31 Test Item Value Reference Range Interpretation Comments pH, arterial (test code 7.41 7.35-7.45 = 2744-1) pCO2, arterial (test 32 See_Comment L [Autom ated message] code = 2018-) The system [facility] generated this result transmitted ref erence range: 35 - 45 mmHg. The reference r carlito was not used to interpret this result as normal/abnor mal. pO2, arterial (test code 432 See_Comment H [A utomated message] = 9483-7) The system [employer] h generated this result transmitted ref erence range: 80 - 90 mmHg. The reference r carlito was not used to interpret this result as normal/abnor mal. Temperature, Celsius 36.0 Degrees C (test code = 8310-5) O2 saturation, arterial 100 % 95-100 (test code = 2708-6) pH, arterial corrected 7.43 (test code = 78981-6) pCO2, arterial corrected 31 mmHg (test code = 58279-5) pO2, arterial corrected 427 mmHg (test code = 13710-1) Base excess, arterial -3 See_Comment L [Auto mated message] (test code = 1925-7) The s tem which generated this result transmitted ref erence range: -2 - 2 m Eq/L. The reference r carlito was not used to interpret this result as normal/abnor mal. Lab Interpretation (test Abnormal code = 12066-0) [place] MethodistGlucose level, [id number] 11:16:31 Test Item Value Reference Range Interpretation Comments Glucose, syringe (test code = 82 mg/dL 65-99 2345-7) [place] MethodistHemoglobin, [id number] 11:16:31 Test Item Value Reference Range Interpretation Comments Hemoglobin, syringe (test code = 13.4 g/dL 12.0-16.0 718-7) [place] MethodistIonized calcium, [id number] 11:16:31 Test Item Value Reference Range Interpretation Comments Ionized calcium, arterial (test 1.15 mmol/L 1.11-1.32 code = 74746-8) [place] MethodistPotassium, [id number] 11:16:31 Test Item Value Reference Range Interpretation Comments Potassium, syringe 3.7 See_Comment [Automat ed message] The (test code = 2007) system ich generated this result tra nsmitted reference range : 3.5 - 5.0 mEq/L. The refe rence range was not used to interpret this result as normal/abnormal . [place] MethodistSodium level, [id number] 11:16:31 Test Item Value Reference Range Interpretation Comments Sodium, syringe (test 141 See_Comment [Auto mated message] The code = 2947-0) system which generated this result tra nsmitted reference range : 135 - 148 mEq/L. The refe rence range was not used to interpret this result as normal/abnormal . [place] MethodistCOVID-19 qualitative [id number] 17:42:25 Test Item Value Reference Range Interpretation Comments Interpretation (test Negative results do code = 0815277) not preclude 2019-nCoV infection and should not be used as the sole basis for treatment or other patient management decisions. Negative results must be combined with clinical observations, patient history, and epidemiological information. COVID-19 qualitative Not-Detected Not-Detected PCR result (test code = 97260-6) COVID-19 qualitative See link below for C ase Number: PCR (test code = PDF Lab Report [id number]) Mono MancillaQonhgewysROJP-ObM-7 (COVID-19) RNA [Presence] in Respiratory specimen by FARIDA with probe [id number] 17:41:46 Test Item Value Reference Range Interpretation Comments SARS-CoV-2 (COVID-19) RNA Not detected Not-Detected [Presence] in Respiratory specimen by FARIDA with probe detection (test code = 06054-1) POC BLADDER SCAN/[id number] 15:05:00 Test Item Value Reference Range Interpretation Comments PVR volume (test code = 5766) 38ml [facility] urinalysis [id number] 15:04:00 Test Item Value Reference Range Interpretation Comments Color urine, POC (test Yellow code = 2113802) Clarity urine, POC Clear (test code = 2319663) Glucose urine, POC Negative Negative (test code = 2446370) Bilirubin urine, POC Negative Negative (test code = 3555061) Ketones urine, POC Negative Negative (test code = 4670534) Specific gravity urine, 1.010 1.005-1.030 POC (test code = 2587697) Blood urine, POC (test Negative Negative code = 3381880) pH urine, POC (test 6.0 See_Comment [Automa viet message] code = 6247305) The system w [facility] generated this result transmitted ref erence range: 5.0, 5.5 , 6.0, 6.5, 7.0, 7.5, 8.0, 8.5. The refere nce range was not u sed to interpret this result as normal/abnor mal. Protein urine, POC Negative Negative (test code = 2794342) Urobilinogen urine, POC <2.0 <2.0 (test code = 1413521) Nitrite urine, POC Negative Negative (test code = 7377298) Leukocyte esterase Negative Negative urine, POC (test code = 0251242) [facility] [id number] 07:43:43Hm Interface, Radiology Results Incoming - 01/19/2020 7:46 AM CDT EXAMINATION:CT ABDOMEN PELVIS W CONTRASTCLINICAL HISTORY:Nausea vomitingTECHNIQUE:Multiple axial images of the abdomen and pelvis were obtained following intravenous administration of iodinated contrast. Sagittal and coronal computerized reformatted images were also obtained.DOSE REDUCTION: CT imaging was performed with iterative reconstruction technique and/or automated exposure control to reduce radiation dose.COMPARISON:CT abdomen pelvis with contrast from 01/14/[address] abdomen pelvis without contrast from 01/13/2020FINDINGS:1.Bibasilar atelectasis. A tiny subpleural pulmonary nodule is seen along the major fissure on the right which is nonspecific and measures upto 0.2 cm. The cardiac size is normal. No pericardial effusion. No hiatal hernia.2.Mild intrahepaticbiliary ductal dilatation and prominence of the common bile duct. The common bile duct measures 1.1 cm in diameter. However, the patient is status post cholecystectomy and this likely represents reservoir effect. This is unchanged.3.Liver is otherwise unremarkable. No intrahepatic biliary ductal dilatation. The main portal vein, superior mesenteric vein, and splenic veins are patent.4.The pancreas, spleen, and adrenals are unremarkable.5.Both kidneys are normal in morphology. There is a fat-containing mass seen within the left kidney measuring 3.2 cm likely representing an angiomyolipoma. A cyst isseen within the right kidney. No hydronephrosis or nephrolithiasis. The bladder is decompressed. No bladder wall thickening.6.No dilated loops of large or small bowel. No intraperitoneal free air or free fluid. The appendix is not visualized.7.The abdominal aorta is normal in course and caliber.8.Stable positioning of an inferior vena cava filter located within the infrarenal inferior vena cava.9.No abdominal or pelvic lymphadenopathy.10.The bones of the abdomen and pelvis are mildly osteopenic.IMPRESSION:1.No acute abnormality in the abdomen or pelvis.2.No significant change in appearance of the abdomen and pelvis when compared to previous examination.3.Stable incidental findings as above.[id number] [facility] Pre/Post [id number] 19:20:15 Test Item Value Reference Range Interpretation Comments Ventricular rate (test 65 code = 253) Atrial rate (test code 65 = 255) LA interval (test code 144 = 266) QRSD interval (test 80 code = 260) QT interval (test code 406 = 264) QTC interval (test code 422 = 265) P axis 1 (test code = 2 267) QRS axis 1 (test code = 9 268) T wave axis (test code 40 = 270) EKG impression (test Normal sinus code = 273) rhythm-Low voltage QRS-Borderline ECG-In automated comparison with ECG of 27-NOV-2013 16:50,-No significant change was found- [facility] Abdomen & [id number] 19:25:24Hm Interface, Radiology Results Incoming 01/14/2020 7:28 PM CDT EXAMINATION: CT VENOGRAM ABDOMEN & PELVISCLINICAL HISTORY: evaluate IVC patencyCOMPARISON: 01/13/2020TECHNIQUE: CT of the abdomen and pelvis using CT venogram protocol. Dose reduction algorithm also used.FINDINGS:1.Bilateral small renal cysts. Left kidney also containsa fatty mass measuring 3 cm consistent with angiomyolipoma. Adrenals, pancreas, liver, and spleen appear unremarkable. Status post cholecystectomy with common duct dilatation measuring 13 mm again noted. This should be correlated with laboratory assessment.2.IVC filter is noted. IVC is patent and iliac veins also appear patent although the left common and external iliac veins are small in caliber consistent with chronic stenosis with multiple collaterals noted.3.Status post hysterectomy. Bowel gas pattern nonobstructive.IMPRESSION:1.No evidence for IVC thrombosis. IVC filter is noted. Chronic left iliac vein stenosis. Other findings are as above.[facility]-[id number] [facility] duplex venous lower [id number] 10:39:00Interface, Radiology Results In - 01/14/2020 10:39 AM CDT Vascular Ultrasound Laboratory Lower Extremity Venous Report [id number] [address], [place] [address] Pat.Name: VARSHA MCCLENDON Pat.ID: [id number] .Date: 01/14/2020 Refer.MD: BRADLEY MELTON MD. Exam Time: 9:27:00AM Study Type:LE Venous Height: 64in Age: 11 1965,54Y Sex: FEMALE Sonogrphr: PAULA Coffman. Stat.:Inpatient Room: [place] [id number] Tape Vol: GB, CPT - 4: 11778 Echo Event ID:[id number] Order ID: [id number] Reason for Study:Rule out DVT, History of leg edema and DVT.Race: C --------- SUMMARY: Deep Veins Superficial Veins* Normal Reflux Criteria: < 1 second * Normal RefluxCriteria: < 0.5 seconds * Abnormal Reflux Criteria: > or equal to 1 second * Abnormal RefluxCriteria: > or equal to 0.5 seconds DUPLEX SCAN OBSERVATIONS Deep Veins Superficial Veins Right Left Right Left GSV (prox) Normal NormalCFV Normal Normal (above knee)Femoral Normal Normal GSV (dist) Normal NormalProfunda Normal Normal (below knee)Popliteal Normal IncompetentPT (prox) Normal Normal SSV Normal NormalPT (dist) Normal Normal Peroneal Normal Normal Gastrocs Normal NormalRIGHT: There isnormal compressibility with no evidence of echogenicmaterial noted within the lumen of the visualized veins. Colorflow andDoppler signals are normal.LEFT: There is normal compressibility with no evidence ofechogenic material noted within the lumen of the visualized veins.Colorflow and Doppler signals are demonstrate venous reflux in thepopliteal vein.PRELIMINARY FINDINGS:1. Normal venous duplex exam of the visualized veins. 2. Venous incompetence of the left popliteal vein. PHYSICIAN INTERPRETATION: Venous examination of the both lower extremities demonstrated noevidence of venous thrombosis in the visualized veins. Venousincompetence of the left popliteal vein. -------FINDINGS: Signed 01/14/2020 10:39 AMiVk Field MD, RPVIHouston Iris [id number] 01:35:46Hm Interface, Radiology Results Incoming - 01/14/2020 1:38 AM CDT Examination: US RENALClinical History: Renal failure chronic (kidney disease)Comparison: None.Findings:Bilateral renal cell was performed.The right kidney measures 9.5 x 4.0x 3.8 cm. The cortex measures 1.1 cm.The left kidney measures 9.9 x 5.2 x 5.5 cm. The cortex measures 1.0 cm.There is a hyperechoic focus in the left kidney measuring 2.8 x 1.8 x 2.2 cm. It has diffuseinternal echoes but no posterior acoustic shadowing.No hydronephrosis or urinary calculus is seen.Urinary bladder is is not well-distended and not well evaluated.IMPRESSION:1. Left renal hyperechoic focus probably correlating with the angiomyolipoma seen on [id number] FrnvbobtiGTTB-JdK-9 (COVID-19) RNA [Presence] in Respiratory specimen by FARIDA with probe [id number] 20:45:31 Test Item Value Reference Range Interpretation Comments SARS-CoV-2 (COVID-19) RNA Not detected Not-Detected [Presence] in Respiratory specimen by FARIDA with probe detection (test code = 29165-9) CT Abdomen Pelvis Wo [id number] 12:31:02Hm Interface, Radiology Results Incoming - 01/13/2020 12:34 PM CDT EXAMINATION: CT ABDOMEN PELVIS WO CONTRASTCLINICAL HISTORY: Abd distensionTECHNIQUE: Noncontrast images of the abdomen and pelvis were obtained without intravenous iodinatedcontrast. The lack of intravenous contrast limits assessment of the solid organs. CT imaging was performed with iterative reconstruction technique and/or automated exposure control to reduce radiation d ose.COMPARISON: NoneFINDINGS:LUNG BASES:NormalABDOMEN:Liver: The liver is normal. No focal mass.Gallbladder: Prior cholecystectomy.Spleen: The spleen is not enlarged.Pancreas: The pancreas is unremarkable.Adrenal Glands: The adrenal glands are unremarkable.Kidneys: Partially exophytic 3.1 x 3.2 cm left interpolar angiomyolipoma.Vascular: IVC filter is in place with the struts extending beyond the duran of the IVC.Nodes: No enlarged retroperitoneal or mesenteric lymphadenopathy.Bowel: There are a fewscattered colonic diverticula. The appendix is not identified. No bowel obstruction or acute inflamma tion.Ascites/fluid collections: No pneumoperitoneum, ascites, or organized fluid collections.PELVIS:No mass, fluid collection or significant adenopathy. MUSCULOSKELETAL: No suspicious osseous lesions. Mild spondylosis.IMPRESSION:1.No acute abdominopelvic inflammatory process. No evidence of bowel obstr uction.2.3.2 cm angiomyolipoma in the left interpolar kidney.3.IVC filter in place with its struts extending beyond the duran of the IVC.[facility]-WPHYJWNHousevaristo SanchezUrine [id number] 11:50:49 Test Item Value Reference Range Interpretation Comments Urine culture (test SEE COMMENT Bacteriu nicole screen code = [id number]) negative. Mono Sanchez
[2020-09-26 22:17] LABS: Absolute Lymphocytes (CBC) 1.4 K/uL (0.7-4.9); Basophils % 0.7 % (0-1.3); Hematocrit 43.4 % (36.0-45.0); Lymphocytes % 16.4 % (15.3-44.8); RBC Red Blood Cell Count 5.07 M/uL (3.86-4.86)
[2020-09-26] MEDS ORDERED: FAMOTIDINE 20 MG/2 ML VIAL IV ONE (22:18)
[2020-09-26] MEDS ORDERED: NA CHLORIDE 0.9% 1,000 ML ONE (22:18)
[2020-09-26 22:25] LABS: Protime INR 1.33
[2020-09-26 22:53] LABS: ALT/SGPT 37 U/L (12-78); AST/SGOT 24 U/L (15-37); Albumin 3.6 g/dL (3.4-5.0); Alkaline Phosphatase 110 U/L (45-117); BUN Blood Urea Nitrogen 10 mg/dL (7-18); Bicarbonate 24 mmol/L (21-32); Bilirubin Direct 0.2 mg/dL (0-0.2); Bilirubin Total 0.7 mg/dL (0.2-1.0); Glucose Level 96 mg/dL (74-106); Lipase 104 U/L (73-393); Magnesium 2.2 mg/dL (1.8-2.4); NT PRO-BNP 246 pg/mL (<125); Potassium 3.8 mmol/L (3.5-5.1); Protein, Total 6.9 g/dL (6.4-8.2); Sodium Level 137 mmol/L (136-145); Troponin (Emerg Dept Use Only) < 0.02 ng/mL (0.0-0.045)
[2020-09-26] MEDS ORDERED: MORPHINE 4 MG/ML SYR ONE (23:00)
[2020-09-26] MEDS ORDERED: METHYLPREDNISOLONE 125 MG INJ ONE (23:00)
[2020-09-26] MEDS ORDERED: ONDANSETRON 4 MG/2 ML VIAL ONE (23:00)
[2020-09-26] MEDS ORDERED: AZITHROMYCIN 500 MG INJ IVPB ONE (23:01)
[2020-09-26] MEDS ORDERED: LEVALBUTEROL 1.25 MG/3 ML NEB ONE (23:01)
[2020-09-26] MEDS ORDERED: IPRATROPIUM BROM 0.5MG/2.5ML ONE (23:02)
[2020-09-26] MEDS ORDERED: CEFTRIAXONE/SWI 1gm 1 GM/10 ML SYR ONE (23:02)
[2020-09-26] MEDS ORDERED: NA CHLORIDE 0.9% 250 ML ONE (23:02)
--- NOTE | 2020-09-26 23:42 | EDPHYS ---
Physician Documentation [facility] Name: Marcie Obando Age: 55 yrs Sex: Female : 1965 Arrival Date: 09/26/2020 Time: 20:59 Bed 14 Private MD: ED Physician Rigo Wiley HPI: 09/26 22:32 This 55 yrs old Female presents to ER via Wheelchair with complaints of donte Painful Cough, Abdominal Pain, when she cough. 22:32 The patient or guardian reports airway noise, cough, that is constant, difficulty donte breathing. Onset: The symptoms/episode began/occurred 2 week(s) ago. Severity of symptoms: At their worst the symptoms were mild, moderate, in the emergency department the symptoms are unchanged. Modifying factors: The symptoms are alleviated by nothing, the symptoms are aggravated by exertion. Associated signs and symptoms: Pertinent positives: chest pain, nausea, vomiting. The patient has not experienced similar symptoms in the past. 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 - Social history:: Smoking status: Patient denies any tobacco usage or history of. ROS: 22:33 Constitutional: Negative for fever, chills, and weight loss, Eyes: Negative for injury, donte pain, redness, and discharge, ENT: Negative for injury, pain, and discharge, Neck: Negative for injury, pain, and swelling, Cardiovascular: Negative for chest pain, palpitations, and edema, Abdomen/GI: Negative for abdominal pain, nausea, vomiting, diarrhea, and constipation, Back: Negative for injury and pain, : Negative for injury, bleeding, discharge, and swelling, MS/Extremity: Negative for injury and deformity, Skin: Negative for injury, rash, and discoloration, Neuro: Negative for headache, weakness, numbness, tingling, and seizure, Psych: Negative for depression, anxiety, suicide ideation, homicidal ideation, and hallucinations, Allergy/Immunology: Negative for hives, rash, and allergies, Endocrine: Negative for neck swelling, polydipsia, polyuria, polyphagia, and marked weight changes, Hematologic/Lymphatic: Negative for swollen nodes, abnormal bleeding, and unusual bruising. 22:33 Respiratory: Positive for cough, shortness of breath, wheezing, expiratory. Exam: 22:33 Constitutional: This is a well developed, well nourished patient who is awake, alert, donte and in no acute distress. Head/Face: Normocephalic, atraumatic. Eyes: Pupils equal round and reactive to light, extra-ocular motions intact. Lids and lashes normal. Conjunctiva and sclera are non-icteric and not injected. Cornea within normal limits. Periorbital areas with no swelling, redness, or edema. ENT: Nares patent. No nasal discharge, no septal abnormalities noted. Tympanic membranes are normal and external auditory canals are clear. Oropharynx with no redness, swelling, or masses, exudates, or evidence of obstruction, uvula midline. Mucous membranes moist. Neck: Trachea midline, no thyromegaly or masses palpated, and no cervical lymphadenopathy. Supple, full range of motion without nuchal rigidity, or vertebral point tenderness. No Meningismus. Chest/axilla: Normal chest wall appearance and motion. Nontender with no deformity. No lesions are appreciated. Cardiovascular: Regular rate and rhythm with a normal S1 and S2. No gallops, murmurs, or rubs. Normal PMI, no JVD. No pulse deficits. Abdomen/GI: Soft, non-tender, with normal bowel sounds. No distension or tympany. No guarding or rebound. No evidence of tenderness throughout. Back: No spinal tenderness. No costovertebral tenderness. Full range of motion. Skin: Warm, dry with normal turgor. Normal color with no rashes, no lesions, and no evidence of cellulitis. MS/ Extremity: Pulses equal, no cyanosis. Neurovascular intact. Full, normal range of motion. Neuro: Awake and alert, GCS 15, oriented to person, place, time, and situation. Cranial nerves II-XII grossly intact. Motor strength 5/5 in all extremities. Sensory grossly intact. Cerebellar exam normal. Normal gait. 22:33 Respiratory: mild respiratory distress is noted, Respirations: labored breathing, that is mild, Breath sounds: bronchial sounds, decreased breath sounds, rhonchi, that are mild, stridor, is not appreciated, + upper airway congestion. Respiratory rate: 22 22:36 ECG was reviewed by the Attending Physician. [facility] Vital Signs: 21:12 BP 147 / 98; Pulse 98; Resp 22; Temp 99.3; Pulse Ox 95% on R/A; Weight 92.99 kg; Height em 5 ft. 4 in. (162.56 cm); Pain 10/10; 22:30 BP 123 / 88; Pulse 93; Resp 16; Pulse Ox 95% on R/A; jb4 09/27 00:00 BP 131 / 88; Pulse 103; Resp 21; Pulse Ox 93% on R/A; jb4 01:00 BP 112 / 78; Pulse 92; Resp 15; Pulse Ox 94% on R/A; jb4 01:45 BP 127 / 95; Pulse 94; Resp 22; Pulse Ox 94% on R/A; jb4 09/26 21:12 Body Mass Index 35.19 (92.99 kg, 162.56 cm) em MDM: 09/26 21:33 Patient medically screened. [facility] 23:33 Differential diagnosis: Anxiety Reaction Bronchitis bronchitis, URI. Antibiotic donte administration: Rocephin and Zithromax given. The patient's Wells Deep Vein Thrombosis Score was calculated as follows: Total Score: 0-2 Pts- Low Risk. Differential Diagnosis: Bronchitis Upper Respiratory Infection Asthma Exacerbation Pneumonia. The patient's pulmonary embolism risk score was calculated as follows: Total Score: 0-2 points. This patient was found to be at low risk for a pulmonary embolism by using the Well's assessment criteria. Immunization status: Influenza vaccine: Data reviewed: vital signs, nurses notes, lab test result(s), EKG, radiologic studies, CT scan, plain films. Data interpreted: supervisor electronic testing: rate is 95 beats/min, rhythm is regular, Pulse oximetry: on room air is 95 %. 09/26 21:37 Order name: Basic Metabolic Panel; Complete Time: 23:20 donte 09/26 21:37 Order name: CBC with Diff; Complete Time: 23:20 donte 09/26 21:37 Order name: LFT's; Complete Time: 23:20 donte 09/26 21:37 Order name: Magnesium; Complete Time: 23:20 donte 09/26 21:37 Order name: NT PRO-BNP; Complete Time: 23:20 [facility] 09/26 21:37 Order name: PT-INR; Complete Time: 23:20 [facility] 09/26 21:37 Order name: Troponin (emerg Dept Use Only); Complete Time: 23:20 [facility] 09/26 21:37 Order name: Blood Culture Adult (2) [facility] 09/26 21:37 Order name: Lipase; Complete Time: 23:20 [facility] 09/26 21:37 Order name: Lactate; Complete Time: 23:20 [facility] 09/26 21:37 Order name: Urine Culture [facility] 09/26 23:08 Order name: SARS-COV-2 RT PCR; Complete Time: 23:20 [facility] 09/27 03:31 Order name: Urinalysis [facility] 09/26 21:37 Order name: XRAY Chest (1 view) [facility] 09/26 21:37 Order name: CT Chest Abdomen Pelvis W/O Contrast [facility] 09/27 06:34 Order name: CBC with Automated Diff [facility] 09/27 06:41 Order name: Comprehensive Metabolic Panel [facility] 09/27 06:41 Order name: Lipid Profile [facility] 09/27 06:41 Order name: T4 Free [facility] 09/27 06:41 Order name: Thyroid Stimulating Hormone [facility] 09/27 10:10 Order name: CBC Smear Scan [facility] 09/26 21:37 Order name: EKG; Complete Time: 21:38 [facility] 09/26 21:37 Order name: Cardiac monitoring; Complete Time: 22:31 [facility] 09/26 21:37 Order name: EKG - Nurse/Tech; Complete Time: 22:31 [facility] 09/26 21:37 Order name: IV Saline Lock; Complete Time: 22:08 [facility] 09/26 21:37 Order name: Labs collected and sent; Complete Time: 22:07 [facility] 09/26 21:37 Order name: O2 Per Protocol; Complete Time: 22:07 [facility] 09/26 21:37 Order name: O2 Sat Monitoring; Complete Time: 22:07 [facility] 09/26 21:37 Order name: Urine Dipstick-Ancillary (obtain specimen); Complete Time: 03:10 [facility] EC:36 Rate is 79 beats/min. Rhythm is regular. QRS [place] is Normal. [place] interval is normal. QRS donte interval is normal. QT interval is normal. No Q waves. T waves are Normal. No ST changes noted. Clinical impression: Normal ECG and No evidence of ischemia. Interpreted by me. Reviewed by me. Administered Medications: 22:00 Drug: Pepcid (famotidine) 20 mg Route: IVP; Site: right wrist; jb4 22:30 Follow up: Response: No adverse reaction jb4 22:50 Drug: NS 0.9% 1000 ml Route: IV; Rate: 125 ml/hr; Site: right wrist; jb4 09/27 01:07 Follow up: IV Status: Order to discontinue infusion; discontinudnupon admission jb4 09/26 22:50 Drug: SOLU-Medrol (methylPrednisoLONE) 125 mg Route: IVP; Site: right wrist; jb4 23:30 Follow up: Response: No adverse reaction jb4 22:56 Drug: Zofran (Ondansetron) 4 mg Route: IVP; Site: right wrist; jb4 23:30 Follow up: Response: No adverse reaction jb4 22:58 Drug: Rocephin (cefTRIAXone) 1 grams Route: IV; Rate: per protocol; Site: right wrist; jb4 23:00 Follow up: Response: No adverse reaction; IV Status: Completed infusion jb4 22:58 Drug: morphine 4 mg Route: IVP; Site: right wrist; jb4 23:30 Follow up: Response: No adverse reaction; Marked relief of symptoms; Pain is decreased; jb4 RASS: Alert and Calm (0) 23:00 Drug: Zithromax (azithromycin) 500 mg Route: IVPB; Infused Over: 1 hrs; Site: right jb4 wrist; 09/27 00:00 Follow up: Response: No adverse reaction; IV Status: Completed infusion; IV Intake: jb4 250ml 09/26 23:03 Drug: Xopenex (levalbuterol) 3.75 mg Route: Inhalation; jb4 23:30 Follow up: Response: No adverse reaction; Marked relief of symptoms jb4 23:03 Drug: AtroVENT (ipratropium) Aerosol 0.5 mg Route: Inhalation; jb4 23:30 Follow up: Response: No adverse reaction; Marked relief of symptoms jb4 Disposition: 09/26/20 23:41 Hospitalization ordered by Manan Desouza for Observation. Preliminary diagnosis are Chronic obstructive pulmonary disease with (acute) exacerbation, Dyspnea, Hypoxemia, Bipolar disorder. - Bed requested for Telemetry/MedSurg (observation). - Status is Observation. iw - Condition is Stable. - Problem is new. - Symptoms have improved. Signatures: Dispatcher [employer] [facility] Rigo Wiley MD MD cha Munoz, Edgar, RN RN Tere Denis, RN RN iw Iwona Hernandez, RN RN tl1 Cali Baldwin, RN RN jb4 Deidra Keenan Corrections: (The following items were deleted from the chart) 22:15 21:38 CORONAVIRUS+MR.LAB.BRZ ordered. [facility] 09/27 00:47 09/26 23:41 Hospitalization Ordered by Maann Desouza MD for Observation. Preliminary tl1 diagnosis is Chronic obstructive pulmonary disease with (acute) exacerbation; Dyspnea; Hypoxemia; Bipolar disorder. Bed requested for Telemetry/MedSurg (observation). Status is Observation. Condition is Stable. Problem is new. Symptoms have improved. [facility] 09/27 10:47 00:47 09/26/2020 23:41 Hospitalization Ordered by Manan Desouza MD for Observation. eb Preliminary diagnosis is Chronic obstructive pulmonary disease with (acute) exacerbation; Dyspnea; Hypoxemia; Bipolar disorder. Bed requested for RUST ER HOLD. Status is Observation. Condition is Stable. Problem is new. Symptoms have improved. tl1 12:20 10:47 09/26/2020 23:41 Hospitalization Ordered by Manan Desouza MD for Observation. iw Preliminary diagnosis is Chronic obstructive pulmonary disease with (acute) exacerbation; Dyspnea; Hypoxemia; Bipolar disorder. Bed requested for Telemetry/MedSurg (observation). Status is Observation. Condition is Stable. Problem is new. Symptoms have improved. eb
--- NOTE | 2020-09-26 23:42 | ER ---
Nurse's Notes [facility] Name: Marcie Obando Age: 55 yrs Sex: Female : 1965 Arrival Date: 09/26/2020 Time: 20:59 Bed 14 Private MD: Diagnosis: Chronic obstructive pulmonary disease with (acute) exacerbation;Dyspnea;Hypoxemia;Bipolar disorder Presentation: 09/26 21:12 Chief complaint: Patient states: has been getting treated for cold for 3 weeks, em symptoms got worse yesterday night, has been having productive cough, chest pain, shortness of breath and abdominal pain, fever 99.6 today, had chest x-ray and covid test today but wont have the results for a few days. Coronavirus screen: Client denies travel out of the [place] in the last 14 days. Ebola Screen: Patient negative for fever greater than or equal to 101.5 degrees Fahrenheit, and additional compatible Ebola Virus Disease symptoms Patient denies exposure to infectious person. Patient denies travel to an Ebola-affected area in the 21 days before illness onset. No symptoms or risks identified at this time. Initial Sepsis Screen: Does the patient meet any 2 criteria? HR > 90 bpm. No. Patient's initial sepsis screen is negative. Does the patient have a suspected source of infection? Yes: Productive cough/pneumonia. Risk Assessment: Do you want to hurt yourself or someone else? Patient reports no desire to harm self or others. Onset of symptoms was September 26, 2020. 21:12 Method Of Arrival: Wheelchair em 21:12 Acuity: ROSSI 3 em MRI SPECIAL PROCEDURES TECHNOLOGIST: 21:16 LMP N/A - Hysterectomy em Historical: - Allergies: 21:16 NKA; em - PMHx: 21:16 Bipolar disorder; blood clots; Hypertension; Hypothyroidism; Migraines; stage 3 renal em disease; UTI; - PSHx: 21:16 Cholecystectomy; Knee surgery; Tonsillectomy; r shoulder; Hysterectomy; kidney; breast em implants; - Immunization history:: Adult Immunizations not up to date, Client reports having NOT received the Covid vaccine. - Social history:: Smoking status: Patient denies any tobacco usage or history of. Screenin:30 Abuse screen: Denies threats or abuse. Nutritional screening: No deficits noted. jb4 Tuberculosis screening: No symptoms or risk factors identified. Fall Risk None identified. Assessment: 21:30 General: Appears in no apparent distress. uncomfortable, Behavior is cooperative, jb4 appropriate for age, anxious. Pain: Complains of pain in chest and abdomen Pain does not radiate. Pain currently is 10 out of 10 on a pain scale. Neuro: Level of Consciousness is awake, alert, obeys commands, Oriented to person, place, time, situation. Cardiovascular: Patient's skin is warm and dry. Respiratory: Reports cough that is non-productive, persistent Airway is patent Respiratory effort is even, unlabored, Respiratory pattern is regular, symmetrical. GI: Abdomen is round non-distended, obese. : No signs and/or symptoms were reported regarding the genitourinary system. EENT: No signs and/or symptoms were reported regarding the EENT system. Derm: Skin is intact, Skin is pink, warm \T\ dry. Musculoskeletal: Circulation, motion, and sensation intact. Range of motion: intact in all extremities. 23:00 Reassessment: Patient appears in no apparent distress at this time. Patient and/or jb4 family updated on plan of care and expected duration. Pain level reassessed. Patient is alert, oriented x 3, equal unlabored respirations, skin warm/dry/pink. 09/27 00:00 Reassessment: Patient appears in no apparent distress at this time. Patient and/or jb4 family updated on plan of care and expected duration. Pain level reassessed. Patient is alert, oriented x 3, equal unlabored respirations, skin warm/dry/pink. Patient states feeling better. 01:00 Reassessment: Patient appears in no apparent distress at this time. Patient and/or jb4 family updated on plan of care and expected duration. Pain level reassessed. Patient is alert, oriented x 3, equal unlabored respirations, skin warm/dry/pink. 02:00 Reassessment: Patient appears in no apparent distress at this time. Patient and/or jb4 family updated on plan of care and expected duration. Pain level reassessed. Patient is alert, oriented x 3, equal unlabored respirations, skin warm/dry/pink. Vital Signs: 09/26 21:12 BP 147 / 98; Pulse 98; Resp 22; Temp 99.3; Pulse Ox 95% on R/A; Weight 92.99 kg; Height em 5 ft. 4 in. (162.56 cm); Pain 10/10; 22:30 BP 123 / 88; Pulse 93; Resp 16; Pulse Ox 95% on R/A; jb4 09/27 00:00 BP 131 / 88; Pulse 103; Resp 21; Pulse Ox 93% on R/A; jb4 01:00 BP 112 / 78; Pulse 92; Resp 15; Pulse Ox 94% on R/A; jb4 01:45 BP 127 / 95; Pulse 94; Resp 22; Pulse Ox 94% on R/A; jb4 09/26 21:12 Body Mass Index 35.19 (92.99 kg, 162.56 cm) em ED Course: 09/26 20:59 Patient arrived in ED. es 21:15 Triage completed. em 21:16 Arm band placed on. em 21:30 Patient has correct armband on for positive identification. Bed in low position. Call [facility] light in reach. Side rails up X 1. ekg monitor on. Pulse ox on. NIBP on. 21:33 Rigo Wiley MD is Attending Physician. [facility] 21:45 Inserted saline lock: 18 gauge in right wrist, using aseptic technique. Blood collected.[facility] 21:45 Initial lab(s) drawn, by wa, sent to lab. First set of blood cultures drawn by wa. jb4 22:00 Second set of blood cultures drawn by wa. jb4 22:07 Troponin (emerg Dept Use Only) Sent. jb4 22:07 NT PRO-BNP Sent. jb4 22:07 Magnesium Sent. jb4 22:07 PT-INR Sent. jb4 22:07 LFT's Sent. jb4 22:07 Lactate Sent. jb4 22:07 Blood Culture Adult (2) Sent. jb4 22:07 Lipase Sent. jb4 22:07 Basic Metabolic Panel Sent. jb4 22:07 CBC with Diff Sent. jb4 22:15 XRAY Chest (1 view) In Process Unspecified. EDMS 22:21 Cali Baldwin, RN is Primary Nurse. 4 22:24 CT Chest Abdomen Pelvis W/O Contrast In Process Unspecified. EDMS 23:38 Manan Desouza MD is Hospitalizing Provider. [facility] 09/27 02:00 No provider procedures requiring assistance completed. Patient admitted, IV remains in [facility] place. 07:09 Primary Nurse role handed off by Cali Baldwin, RN bp 07:09 Anup Ochoa, RN is Primary Nurse. bp Administered Medications: 09/26 22:00 Drug: Pepcid (famotidine) 20 mg Route: IVP; Site: right wrist; jb4 22:30 Follow up: Response: No adverse reaction jb4 22:50 Drug: NS 0.9% 1000 ml Route: IV; Rate: 125 ml/hr; Site: right wrist; jb4 09/27 01:07 Follow up: IV Status: Order to discontinue infusion; discontinudnupon admission 4 09/26 22:50 Drug: SOLU-Medrol (methylPrednisoLONE) 125 mg Route: IVP; Site: right wrist; jb4 23:30 Follow up: Response: No adverse reaction jb4 22:56 Drug: Zofran (Ondansetron) 4 mg Route: IVP; Site: right wrist; jb4 23:30 Follow up: Response: No adverse reaction jb4 22:58 Drug: Rocephin (cefTRIAXone) 1 grams Route: IV; Rate: per protocol; Site: right wrist; jb4 23:00 Follow up: Response: No adverse reaction; IV Status: Completed infusion jb4 22:58 Drug: morphine 4 mg Route: IVP; Site: right wrist; jb4 23:30 Follow up: Response: No adverse reaction; Marked relief of symptoms; Pain is decreased; jb4 RASS: Alert and Calm (0) 23:00 Drug: Zithromax (azithromycin) 500 mg Route: IVPB; Infused Over: 1 hrs; Site: right jb4 wrist; 09/27 00:00 Follow up: Response: No adverse reaction; IV Status: Completed infusion; IV Intake: jb4 250ml 09/26 23:03 Drug: Xopenex (levalbuterol) 3.75 mg Route: Inhalation; jb4 23:30 Follow up: Response: No adverse reaction; Marked relief of symptoms jb4 23:03 Drug: AtroVENT (ipratropium) Aerosol 0.5 mg Route: Inhalation; jb4 23:30 Follow up: Response: No adverse reaction; Marked relief of symptoms jb4 Intake: 09/27 00:00 IV: 250ml; Total: 250ml. jb4 Outcome: 09/26 23:41 Decision to Hospitalize by Provider. [facility] 09/27 02:00 Admitted to ER Hold. Please see [facility] for further documentation. jb4 Condition: stable Discharge instructions given to patient, Instructed on the need for admit, Demonstrated understanding of instructions. 12:20 Patient left the ED. iw Signatures: Dispatcher [employer] Rigo Raygoza MD MD cha Salyer, Edna es Munoz, Edgar, RN RN Tere Denis RN RN Cali Hassan RN RN jb4 Anup Ochoa RN RN bp
[2020-09-27] MEDS ORDERED: ONDANSETRON 4 MG/2 ML VIAL IV PRN (00:56)
--- NOTE | 2020-09-27 00:56 | P.HP ---
Certification for Inpatient Patient admitted to: Observation With expected LOS: <2 Midnights Patient will require the following post-hospital care: None Practitioner: I am a practitioner with admitting privileges, knowledge of patient current condition, hospital course, and medical plan of care. Services: Services provided to patient in accordance with Admission requirements found in Title 42 Section 412.3 of the Code of Federal Regulations Patient History Date of Service: 09/27/20 Primary Care Provider: Dr. fatima Reason for admission: COPD exacerbation History of Present Illness: 55-year-old female with history of COPD, DVT, hypothyroidism, hypertension, migraines, CKD 3 presents emergency department for cough, abdominal/chest pain. Patient reports she has had a cough over the course of the last 2 weeks which has been getting worse and severe pain in her chest and abdomen when she coughs. Patient was evaluated in the emergency department, labs significant for GFR 78 BNP 246 chest x-ray unremarkable. Patient with some mild expiratory wheezing on exam, noted to desaturate into the high 80s on room air. ED provider wishes to admit for further evaluation and management. Allergies No Known Allergies Allergy (Verified 07/13/15 20:51) Home Medications: Gabapentin 600 mg PO TID 07/13/15 Mesalamine [Lialda] 3 tab PO DAILY 07/13/15 Rivaroxaban [Xarelto] 20 mg PO BEDTIME 07/13/15 Topiramate [Topamax] 100 mg PO BID 07/13/15 Dihydroergotamine Mesylate 1 spray KHADIJAH PRN PRN 07/20/17 Levothyroxine [Synthroid*] 0.088 mg PO DAILY 07/20/17 Nebivolol HCl [Bystolic] 5 mg PO DAILY 07/20/17 Temazepam [Restoril*] 30 mg PO BEDTIME 07/20/17 Pantoprazole [Protonix Tab] 40 mg PO DAILY #30 tab 07/21/17 - Past Medical/Surgical History Diabetic: No -: Bipolar -: Hypothyroid -: hx of blood clot in leg 2012 -: Colitis -: Bronchitis -: Migraines -: COPD -: hysterectomy -: kidney sx when child -: Knee Sx -: Shoulder sx -: Tonsillectomy -: Chlecystectomy -: Breast implants -: Obed escalante Psychosocial/ Personal History: Lives with family - Family History Father -: Heart disease, Hypertension - Social History Smoking Status: Never smoker Alcohol use: No CD- Drugs: No Caffeine use: Yes Place of Residence: Home Review of Systems 10-point ROS is otherwise unremarkable Respiratory: Cough, Shortness of Breath, Pleuritic Pain, Wheezing Physical Examination - Physical Exam General: Alert, In no apparent distress, Oriented x3 HEENT: Atraumatic, PERRLA, Mucous membr. moist/pink Neck: Supple, 2+ carotid pulse no bruit, No LAD Respiratory: Normal air movement, Expiratory wheezes (Mild expiratory wheezing) Cardiovascular: Regular rate/rhythm, Normal S1 S2 Gastrointestinal: Normal bowel sounds, No tenderness Musculoskeletal: No tenderness Integumentary: No rashes Neurological: Normal gait, Normal speech, Normal strength at 5/5 x4 extr, Normal tone, Normal affect Lymphatics: No axilla or inguinal lymphadenopathy - Studies Laboratory Data (last 24 hrs) 09/26/20 21:45: PT 15.3 H, INR 1.33 09/26/20 21:45: WBC 8.50, Hgb 14.7, Hct 43.4, Plt Count 214 09/26/20 21:45: Sodium 137, Potassium 3.8, BUN 10, Creatinine 0.84, Glucose 96, Magnesium 2.2, Total Bilirubin 0.7, AST 24, ALT 37, Alkaline Phosphatase 110, Lipase 104 Assessment and Plan - Plan Assessment Dyspnea, hypoxia secondary to COPD exacerbation History of DVT Hypertension, hypothyroidism, CKD 3 Plan Dyspnea, hypoxia secondary to COPD exacerbation: Continue IV steroids, scheduled nebs, incentive spirometry, p.r.n. pain medication, antitussives. Daily room air saturations. Supplemental oxygen as needed. Continue Xarelto for DVT prophylaxis. Anticipate clinical improvement next 24-48 hr. History of DVT: Continue Xarelto Hypertension, hypothyroidism, CKD 3: Stable, continue home medications. Discharge Plan: Home Plan to discharge in: 24 Hours - Advance Directives Does patient have a Living Will: No Does patient have a Durable POA for Healthcare: No - Code Status/Comfort Care Code Status Assessed: Yes (Full code) Critical Care: No Time Spent Managing Pts Care (In Minutes): 55
[2020-09-27] MEDS ORDERED: BENZONATATE 100 MG CAP PO ONE ×2 (01:25→08:02)
[2020-09-27] MEDS: ALBUTEROL 2.5 MG/3 ML NEB SOL NEB SCH ×4 (02:00→19:55)
[2020-09-27] MEDS: IPRATROPIUM BROM 0.5MG/2.5ML NEB SCH ×4 (02:00→19:55)
[2020-09-27] MEDS ORDERED: ALBUTEROL 2.5 MG/3 ML NEB SOL ONE ×2 (02:14→08:55)
[2020-09-27] MEDS ORDERED: IPRATROPIUM BROM 0.5MG/2.5ML ONE ×2 (02:14→08:55)
[2020-09-27 02:15] VITALS: BMI 35.2
[2020-09-27 03:10] LABS: Urine Appearance CLEAR (Clear); Urine Bilirubin NEGATIVE (Negative); Urine Blood NEGATIVE (Negative); Urine Color YELLOW (Yellow); Urine Glucose NEGATIVE (Negative); Urine Protein NEGATIVE (Negative); Urine Specific Gravity <=1.005 (1.005-1.030); Urine Urobilinogen 0.2 mg/dL (0.2-1.0); Urine pH 6.5 (5.0-7.0)
[2020-09-27 03:31] LABS: Urine Microscopic Reflex NO UMIC
[2020-09-27] MEDS: TRAMADOL HCL 50 MG TAB PO PRN (04:21)
[2020-09-27] MEDS ORDERED: TRAMADOL HCL 50 MG TAB ONE (04:37)
[2020-09-27 06:28] LABS: Absolute Lymphocytes (CBC) 0.3 K/uL (0.7-4.9); Basophils % 0.1 % (0-1.3); Hematocrit 41.7 % (36.0-45.0); Lymphocytes % 4.9 % (15.3-44.8); MPV 7.8 fL (7.6-11.3); RBC Red Blood Cell Count 4.83 M/uL (3.86-4.86)
[2020-09-27 06:41] LABS: ALT/SGPT 98 U/L (12-78); AST/SGOT 118 U/L (15-37); Albumin 3.3 g/dL (3.4-5.0); Alkaline Phosphatase 124 U/L (45-117); BUN Blood Urea Nitrogen 11 mg/dL (7-18); Bicarbonate 26 mmol/L (21-32); Bilirubin Total 0.5 mg/dL (0.2-1.0); Glucose Level 185 mg/dL (74-106); HDL Cholesterol 90 mg/dL (40-60); LDL Cholesterol, Calculated 77 (<130); Potassium 4.2 mmol/L (3.5-5.1); Protein, Total 6.7 g/dL (6.4-8.2); Sodium Level 138 mmol/L (136-145); Thyroid Stimulating Hormone < 0.005 uIU/mL (0.360-3.740)
[2020-09-27] MEDS: HYDROCODONE/APAP 5/325 MG TAB PO PRN ×2 (07:30→16:05)
[2020-09-27] MEDS: BENZONATATE 100 MG CAP PO PRN ×2 (07:30→16:06)
[2020-09-27] MEDS ORDERED: HYDROCODONE/APAP 5/325 MG TAB ONE (08:02)
--- NOTE | 2020-09-27 08:11 | EKG ---
Test Date: 2020-09-26 Test Time: 22:26:13 Container Maker: KELVIN MEASUREMENT RESULTS: Intervals: Rate: 79 NM: 128 QRSD: 72 QT: 346 QTc: 396 [place]: P: 0 NM: 128 QRS: 21 T: 38 INTERPRETIVE STATEMENTS: Normal sinus rhythm Normal ECG Compared to ECG 10/09/2019 12:28:59 Sinus arrhythmia no longer present Electronically Signed On 09-27-20 08:09:34 CDT by Jurgen Dhillon
--- NOTE | 2020-09-27 08:15 | RAD REPORT ---
EXAM DESCRIPTION: Brandin Single View09/26/2020 10:15 pm CLINICAL HISTORY: Cough COMPARISON: September 26, 2020 FINDINGS: The lungs appear clear of acute infiltrate. The heart is normal size IMPRESSION: No acute abnormalities displayed
[2020-09-27] MEDS ORDERED: ENOXAPARIN 40 MG/0.4 ML SQ SCH (09:00)
[2020-09-27] MEDS: METHYLPREDNISOLONE 40 MG INJ IV SCH ×2 (09:00→16:06)
[2020-09-27] MEDS ORDERED: METHYLPREDNISOLONE 40 MG INJ ONE (09:13)
[2020-09-27 10:10] LABS: Blood Morphology Comment NOT SEEN (NOT SEEN); Platelet Estimate ADEQ; White Blood Cell Scan OK (OK)
--- NOTE | 2020-09-27 11:19 | RAD REPORT ---
EXAM DESCRIPTION: CT - Chest Abd Pelvis Wo Con - 09/27/2020 6:24 am CLINICAL HISTORY: 55 years, Female, Cough;Abdominal distention COMPARISON: None TECHNIQUE: Noncontrast images of the chest, abdomen and pelvis were performed utilizing 5 mm slice t hickness at 5 mm interval reconstruction from the lung apices to the ischial without administration o f IV contrast. In addition multiplanar reformats in the coronal and sagittal plane were obtained and reviewed. This exam was performed according to our departmental dose-optimization protocol, which includes auto mated exposure control, adjustment of the mA and/or kV according to patient size and/or use of iterat chepe reconstruction technique. Some of the images are compromised by motion artifact limiting diagnostic value. CHEST: The lungs parenchyma demonstrate to be clear. No significant masses nodules are identified. The trachea mainstem bronchus demonstrate to be normal. There is no significant pleural and/or peric ardial effusions. The heart is normal in size. The thoracic aorta demonstrate to be within normal l imits. There is no significant mediastinal and/or hilar lymphadenopathy. The axillary regions demonst rate to be clear. The bone windows demonstrate minimal anterior spondylosis along the lower thoraci c spine. There is no evidence for compression deformities. Noted are the presence of bilateral breast implants. ABDOMEN AND PELVIS: The liver, pancreas, spleen and adrenal glands demonstrate to be unremarkable, n o focal lesions are noted. Surgical clips within the gallbladder fossa corresponding to previous chol ecystectomy. The kidneys demonstrate no evidence for nephrolithiasis and/or hydronephrosis. There is a probable fa tty containing lesion within the anterior aspect lower pole left kidney measuring 2.7 x 2.5 cm perhap s corresponding to a angiomyolipoma on image 67/127. Grossly the unopacified stomach, small bowel and large bowel demonstrate to be within normal limits. There is no evidence for bowel dilatation and/or free air. The appendix was not visualized. The urinary bladder demonstrate to be unremarkable. The uterus is absent. There are no adnexal mass es. The aorta demonstrate to be normal. There is no retroperitoneal lymphadenopathy. There is no ascites the bone windows demonstrate no significant compression deformities within the lumbar spine. No evidence for significant skeletal lesions. IMPRESSION: MOTION ARTIFACT LIMITS THE EVALUATION. NO SIGNIFICANT ABNORMALITIES WITHIN THE CHEST WITHOUT CONTRAST. STATUS POST CHOLECYSTECTOMY. LEFT RENAL ANGIOMYOLIPOMA. STATUS POST HYSTERECTOMY. NO EVIDENCE FOR HYDRONEPHROSIS AND/OR NEPHROLITHIASIS. OTHERWISE UNREMARKABLE CT SCAN OF THE ABDOMEN AND PELVIS WITHOUT CONTRAST. Electronically signed by: Yogesh Lozano MD 09/26/2020 10:39 PM CDT Due to temporary technical issues with the PACS/Fluency reporting system, reports are being signed by the in house radiologist without review as a courtesy to ensure prompt reporting. The interpreting r adiologist is fully responsible for the content of the report.
[2020-09-27] MEDS ORDERED: RIVAROXABAN 20 MG TABLET PO SCH (17:00)
--- NOTE | 2020-09-27 17:17 | P.PN ---
Subjective Date of Service: 09/27/20 Primary Care Provider: Dr. fatima Chief Complaint: COPD exacerbation Subjective: No new changes (oxygen requirement improved, still with cough and chest/abd pain. feeling very weak. tachypneic, dyspneic with not much movement) Review of Systems 10-point ROS is otherwise unremarkable Physical Examination - Vital Signs Temperature: 99.0 F Blood Pressure: 128/75 Pulse: 84 Respirations: 19 Pulse Ox (%): 94 - Studies Laboratory Data (last 24 hrs) 09/26/20 21:45: PT 15.3 H, INR 1.33 09/26/20 21:45: WBC 8.50, Hgb 14.7, Hct 43.4, Plt Count 214 09/26/20 21:45: Sodium 137, Potassium 3.8, BUN 10, Creatinine 0.84, Glucose 96, Magnesium 2.2, Total Bilirubin 0.7, AST 24, ALT 37, Alkaline Phosphatase 110, Lipase 104 Assessment & Plan Physician Review Additional Text: Physical Exam General: Alert, mild distress Respiratory: diminished ir movement, Expiratory wheezes bilaterally Cardiovascular: Regular rate/rhythm, Normal S1 S2 Gastrointestinal: Normal bowel sounds, No tenderness, soft Integumentary: No rashes Neurological: Normal speech, Normal strength at 5/5 x4 extr Problem List Dyspnea, hypoxia secondary to COPD exacerbation History of DVT Hypertension, hypothyroidism, CKD 3 -continues steroids, nebs, IS -prn pain medication -sandeep tim - pt states these seem to help -wean O2 -continue xarelto Dispo: patient still significantly symptomatic, anticipate dc home in ~24hrs Time Spent Managing Pts Care (In Minutes): 35
[2020-09-27] MEDS ORDERED: ZOLPIDEM TARTRATE 10 MG TABLET PO ONE (20:11)
[2020-09-27] MEDS ORDERED: AMITRIPTYLINE 25 MG TAB PO ONE (20:12)
[2020-09-28] MEDS: IPRATROPIUM BROM 0.5MG/2.5ML NEB SCH ×2 (01:10→08:41)
[2020-09-28] MEDS: ALBUTEROL 2.5 MG/3 ML NEB SOL NEB SCH ×2 (01:10→08:41)
[2020-09-28] MEDS: METHYLPREDNISOLONE 40 MG INJ IV SCH ×2 (01:14→09:17)
[2020-09-28] MEDS: BENZONATATE 100 MG CAP PO PRN ×2 (01:15→09:18)
[2020-09-28] MEDS: TRAMADOL HCL 50 MG TAB PO PRN ×2 (01:15→09:18)
[2020-09-28 02:04] VITALS: O2SAT 94
[2020-09-28] MEDS: GUAIFENESIN/CODEINE 5ML UCUP PO PRN ×2 (05:20→13:07)
[2020-09-28 06:22] LABS: Absolute Lymphocytes (CBC) 0.5 K/uL (0.7-4.9); Basophils % 0.1 % (0-1.3); Hematocrit 40.5 % (36.0-45.0); Lymphocytes % 4.1 % (15.3-44.8); MPV 7.9 fL (7.6-11.3); RBC Red Blood Cell Count 4.65 M/uL (3.86-4.86)
[2020-09-28 06:40] LABS: Bilirubin Total 0.3 mg/dL (0.2-1.0); Potassium 4.3 mmol/L (3.5-5.1)
[2020-09-28] MEDS ORDERED: GUAIFENESIN 600 MG SA TAB PO SCH (09:00)
[2020-09-28 12:24] VITALS: BP 106/67; TEMP 98.1
[2020-09-28] MEDS ORDERED: AZITHROMYCIN IV 500 MG in NA CHLORIDE 0.9% 250 ML IVPB ONE (13:00)
--- NOTE | 2020-09-28 21:07 | P.DS ---
Admission Date: 09/27/20 Discharge Date: 09/28/20 Primary Care Provider: Dr. fatima Disposition: ROUTINE DISCHARGE Discharge Condition: GOOD Reason for Admission: COPD exacerbation Procedures: CXR (09/26): The lungs appear clear of acute infiltrate. The heart is normal size IMPRESSION: No acute abnormalities displayed CT Chest/Abd/Pelvis (09/26): CHEST: The lungs parenchyma demonstrate to be clear. No significant masses nodules are identified. The trachea mainstem bronchus demonstrate to be normal. There is no significant pleural and/or pericardial effusions. The heart is normal in size. The thoracic aorta demonstrate to be within normal limits. There is no significant mediastinal and/or hilar lymphadenopathy. The axillary regions demonstrate to be clear. The bone windows demonstrate minimal anterior spondylosis along the lower thoracic spine. There is no evidence for compression deformities. Noted are the presence of bilateral breast implants. ABDOMEN AND PELVIS: The liver, pancreas, spleen and adrenal glands demonstrate to be unremarkable, no focal lesions are noted. Surgical clips within the gallbladder fossa corresponding to previous cholecystectomy. The kidneys demonstrate no evidence for nephrolithiasis and/or hydronephrosis. There is a probable fatty containing lesion within the anterior aspect lower pole left kidney measuring 2.7 x 2.5 cm perhaps corresponding to a angiomyolipoma on image 67/127. Grossly the unopacified stomach, small bowel and large bowel demonstrate to be within normal limits. There is no evidence for bowel dilatation and/or free air. The appendix was not visualized. The urinary bladder demonstrate to be unremarkable. The uterus is absent. There are no adnexal masses. The aorta demonstrate to be normal. There is no retroperitoneal lymphadenopathy. There is no ascites the bone windows demonstrate no significant compression deformities within the lumbar spine. No evidence for significant skeletal lesions. IMPRESSION: motion artifact limits the evaluation. No significant abnormalities within the chest without contrast. status post cholecystectomy. left renal angiomyoplipoma status post hysterectomy no evidence for hydronephrosis and/or nephrolithiasis otherwise unremarkable CT scan of the abdomen and pelvis without contrast Problem List Dyspnea, hypoxia secondary to acute on chronic COPD exacerbation History of DVT on chronic anticoagulation Hypertension Hypothyroidism CKD 3 Brief History of Present Illness: 55-year-old female with history of COPD, DVT, hypothyroidism, hypertension, migraines, CKD 3 presents emergency department for cough, abdominal/chest pain. Patient reports she has had a cough over the course of the last 2 weeks which has been getting worse and severe pain in her chest and abdomen when she coughs. Patient was evaluated in the emergency department, labs significant for GFR 78 BNP 246 chest x-ray unremarkable. Patient with some mild expiratory wheezing on exam, noted to desaturate into the high 80s on room air. ED provider wishes to admit for further evaluation and management. Hospital Course: Patient was treated with steroids, nebs, cough medication, and pain medication. She had gradual improvement of her symptoms and was breathing more comfortably on room air. She continued with some abdominal muscle soreness from coughing but was manageable with tramadol. She was discharged home with continued treatment. She is to follow up with her PCP in 3-5 days. Vital Signs/Physical Exam: Physical Exam General: Alert, NAD Respiratory: clear to auscultation bilaterally, nonlabored respirations on room air Cardiovascular: Regular rate/rhythm, Normal S1 S2 Gastrointestinal: Normal bowel sounds, No tenderness, soft Integumentary: No rashes Neurological: Normal speech, Normal strength at 5/5 x4 extr Temp Pulse Resp BP Pulse Ox 98.1 F 100 H 16 106/67 92 09/28/20 12:00 09/28/20 12:00 09/28/20 12:00 09/28/20 12:00 09/28/20 12:00 Laboratory Data at Discharge: WBC 11.80 K/uL (4.3-10.9) H D 09/28/20 05:53 Hgb 13.3 g/dL (12.0-15.0) 09/28/20 05:53 Hct 40.5 % (36.0-45.0) 09/28/20 05:53 Plt Count 224 K/uL (152-406) 09/28/20 05:53 PT 15.3 SECONDS (9.5-12.5) H 09/26/20 21:45 INR 1.33 09/26/20 21:45 Sodium 139 mmol/L (136-145) 09/28/20 05:53 Potassium 4.3 mmol/L (3.5-5.1) 09/28/20 05:53 BUN 14 mg/dL (7-18) 09/28/20 05:53 Creatinine 0.74 mg/dL (0.55-1.3) 09/28/20 05:53 Glucose 157 mg/dL (74-106) H 09/28/20 05:53 Magnesium 2.2 mg/dL (1.8-2.4) 09/26/20 21:45 Total Bilirubin 0.3 mg/dL (0.2-1.0) 09/28/20 05:53 AST 23 U/L (15-37) 09/28/20 05:53 ALT 65 U/L (12-78) 09/28/20 05:53 Alkaline Phosphatase 101 U/L (45-117) 09/28/20 05:53 Triglycerides 43 mg/dL (<150) 09/27/20 05:55 Cholesterol 176 mg/dL (<200) 09/27/20 05:55 HDL Cholesterol 90 mg/dL (40-60) H 09/27/20 05:55 Cholesterol/HDL Ratio 1.96 09/27/20 05:55 Lipase 104 U/L (73-393) 09/26/20 21:45 Home Medications: Rivaroxaban [Xarelto] 20 mg PO BEDTIME 07/13/15 Levothyroxine [Synthroid*] 0.088 mg PO DAILY 07/20/17 Amitriptyline [Elavil*] 1 tab PO DAILY 09/27/20 Budesonide/Glycopyr/Formoterol [Breztri Aerosphere Inhaler] 2 puff IH BID 09/27/20 Montelukast [Singulair*] 1 tab PO BEDTIME 09/27/20 Zolpidem Tartrate 1 tab PO BEDTIME 09/27/20 Albuterol Inhaler [Ventolin Inhaler*] 2 puff IH Q6H PRN 30 Days #1 hfa.aer.ad 09/28/20 Azithromycin 250 mg PO DAILY 4 Days #4 tablet 09/28/20 Benzonatate [Tessalon Perle*] 100 mg PO Q8H PRN 7 Days #21 cap 09/28/20 predniSONE [Prednisone] 20 mg PO BID 3 Days #6 tablet 09/28/20 traMADol HCL [Ultram*] 50 mg PO Q6H PRN 4 Days #15 tab 09/28/20 New Medications: Azithromycin 250 mg PO DAILY 4 Days #4 tablet predniSONE [Prednisone] 20 mg PO BID 3 Days #6 tablet Benzonatate [Tessalon Perle*] 100 mg PO Q8H PRN 7 Days #21 cap PRN Reason: Cough traMADol HCL [Ultram*] 50 mg PO Q6H PRN 4 Days #15 tab PRN Reason: Pain Scale 5-7 (Moderate) Albuterol Inhaler [Ventolin Inhaler*] 2 puff IH Q6H PRN 30 Days #1 hfa.aer.ad PRN Reason: Shortness Of Breath Physician Discharge Instructions: You were found to have an acute COPD exacerbation. Improved with steroids, nebulizers, and cough medication. You are discharged with new medications - prednisone, azithromycin, tessalon perles, tramadol. Please take mucinex as well to help loosen your phlegm/mucous. Follow up with your PCP in 3-5 days. Diet: Regular Activity: Ad aziza Followup: NONE,NONE [Primary Care Provider] - Time spent managing pt's care (in minutes): 45
== END 2020-09-28 15:52 | disposition home or self-care (01) ==
LOC: ER 20:56 → ERHOLD 09-27 00:32 → 2ND 09-27 12:06
PROVIDERS: ADMIT Hospitalist; ATTEND Hospitalist
DX: J44.1 Chronic obstructive pulmonary disease with (acute) exacerbation (principal); R09.02 Hypoxemia; I12.9 Hypertensive chronic kidney disease with stage 1 through stage 4 chronic kidney disease, or unspecified chronic kidney disease; N18.30 Chronic kidney disease, stage 3 unspecified; E03.9 Hypothyroidism, unspecified; G43.909 Migraine, unspecified, not intractable, without status migrainosus; K52.9 Noninfective gastroenteritis and colitis, unspecified; F31.9 Bipolar disorder, unspecified; Z20.822 Contact with and (suspected) exposure to COVID-19; Z86.718 Personal history of other venous thrombosis and embolism; Z79.01 Long term (current) use of anticoagulants; Z90.49 Acquired absence of other specified parts of digestive tract; Z82.49 Family history of ischemic heart disease and other diseases of the circulatory system
CPT/HCPCS: 96365; 96361; 93005; 87040 ×2; 87088; 85025 ×3; 87086; 80048; 36415 ×2; 83735; 85610; 80061; 80076; 83605; 84443; 81003; 84484; 84439; 83690; 80053 ×2; 83880; 71250; 74176; 71045; 94010; 94640 ×6; 96375; 99285; U0003; J0456 ×2; J0696; J7050 ×2; J7030; J2930; J2405; J2920 ×4; G0378 ×3

== ENCOUNTER 2021-12-11 16:49 | Emergency (ER) | payer OTHER ==
--- OUTSIDE RECORDS SUMMARY | 2021-12-11 16:53 | XMS REPORT | Continuity of Care Document ---
:1965 Author Organization [facility] t Address [address] [place] [address] Care Team Providers Name Role Phone Anup Harvey Primary Care Physician Denis Carr MD Attending Clinician DENIS CARR Attending Clinician Unavailable DENIS CARR Attending Clinician Unavailable Lab, Adc Fam Pob I Attending Clinician Unavailable Rocky Huynh MD Attending Clinician TANNER SEXTON Attending Clinician Unavailable MD TANNER SEXTON Attending Clinician Unavailable AGUILA PEREZ Attending Clinician Unavailable KAITLIN GARCÍA Attending Clinician Unavailable MD KAITLIN GARCÍA Attending Clinician Unavailable TANNER SEXTON Admitting Clinician Unavailable MD TANNER SEXTON Admitting Clinician Unavailable KAITLIN GARCÍA Admitting Clinician Unavailable MD KAITLIN GARCÍA Admitting Clinician Unavailable Payers Payer Name Policy Type Policy Number Effective Date Expiration Date S ource Problems Condition Condition Condition Status Onset Resolution Last Treating Co mments Source Name Details Category Date Date Treatment Clinician Date Hallux Hallux Disease Active Overview: Univer s rigidus of rigidus of 6-28 Formattin ity of right foot right foot 00:00: g of this [place] 00 note Medical might be Branch different from the original. Added automatic ally from request for surgery [id number] Presence Presence Disease Active 2019-04 Overview: Me thodi of IVC of IVC 0-[address] filter filter 00:00: g of this Hospita 00 note l might be different from the original. Added automatic ally from request for surgery [id number] ELODIA (acute ELODIA (acute Disease Active 2019-04 M ethodi kidney kidney 0-10 st injury) injury) 00:00: Hospita 00 l Abdominal Abdominal Disease Active 2019-04 Overview: Methodi pain, pain, 0-[address] generalize generalize 00:00: g of this Hospita d d 00 note l might be different from the original. Added automatic ally from request for surgery [id number] Right knee Right knee Disease Active U nivers pain pain 1-12 ity of 00:00: [place] 00 Medical Branch Left foot Left foot Disease Active Uni vers pain pain 4-28 ity of 00:00: [address] Allergies, Adverse Reactions, Alerts Allergy Allergy Status Severity Reaction(s) Onset Inactive Treating Comm ents Source Name Type Date Date Clinician NO KNOWN Drug Active Univers ALLERGIE Class ity of S [facility] Social History Social Habit Start Date Stop Date Quantity Comments Source Alcohol intake 2020-02-21 2020-02-21 Ex-drinker [facility] 00:00:00 00:00:00 (finding) Hospital Alcohol Comment 2020-02-05 2020-02-05 occasional [facility] 00:00:00 00:00:00 Hospital Tobacco use and 2015-10-03 2015-10-03 Smokeless tobacco Un iversity of exposure 00:00:00 00:00:00 non-user [facility] Sex Ass[birth year] At [birth year] Universit y of 00:00:00 00:00:00 [facility] Smoking Status Start Date Stop Date Source Never smoked tobacco [facility] Medications Ordered Filled Start Stop Current Ordering Indication Dosage Frequency Signature Comments Components Source Medication Medication Date Date Medication? Clinician (SIG) Name Name clostridium 2021- No [id number] 155U Univers botulinum 12-04 ity of toxin 16:15: 16:32 [place] (BOTOX) 00 :00 Medical injection Branch 155 Units clostridium 2021- No [id number] 155 Units, Univers botulinum 12-04 Intramuscu ity of toxin 16:15: 16:32 lar, ONCE, [place] (BOTOX) 00 :00 1 dose, On Medica l injection Sho 12/04/21 Bran ch 155 Units at 1115, Routine
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
delivery crew member approving Restricted medication : DENIS CARR montelukast 2021- No Take by Un rosemary sodium 12-04 mouth. ity of (SINGULAIR 10:24: 00:00 [place] ORAL) 09 :00 Medical Branch montelukast 2021- No Take by Un rosemary sodium 12-04 mouth. ity of (SINGULAIR 10:24: 00:00 [place] ORAL) 09 :00 Medical Branch LEVOTHYROXI 2021- No 88ug Take 88 Un rosemary NE SODIUM 12-04 mcg by ity of (LEVOTHYROX 10:23: 00:00 mouth. [place]ong as INE ORAL) 46 :00 Medical Branch LEVOTHYROXI 2021- No 88ug Take 88 Un rosemary NE SODIUM 12-04 mcg by ity of (LEVOTHYROX 10:23: 00:00 mouth. [place] as INE ORAL) 46 :00 Medical Branch RIVAROXABAN Yes 20mg Take 20 mg Univers (XARELTO 2-10 by mouth. ity of ORAL) 11:00: [place] [address] Medical Branch zolpidem Yes 10mg Take 10 mg Uni vers (AMBIEN) 10 2-10 by mouth ity of mg tablet 11:00: at bedtime [place] as needed Medical for Branch Insomnia. plecanatide Yes Take by Uni vers (TRULANCE) 2-10 mouth. ity of 3 mg Tab 11:00: [place] 57 Medical Branch RIVAROXABAN 0 Yes 20mg Take 20 mg Univers (XARELTO 2-10 by mouth. ity of ORAL) 11:00: [place] [address] Medical Branch zolpidem 0 Yes 10mg Take 10 mg Uni vers (AMBIEN) 10 2-10 by mouth ity of mg tablet 11:00: [place]time [place] as needed Medical for Branch Insomnia. plecanatide Yes Take by Uni vers (TRULANCE) 2-10 mouth. ity of 3 mg Tab 11:00: [place] [address] Medical Branch butorphanol 0 Yes [id number] 1 spray in Univers 10 mg/mL 1-21 one ity of nasal spray 00:00: nostril [place] as 00 TID prn Medical Indication Branch s: acute pain, intractabl e migraine butorphanol 0 Yes [id number] 1 spray in Univers 10 mg/mL -21 one ity of nasal spray 00:00: nostril [place] as 00 TID prn Medical Indication Branch s: acute pain, intractabl e migraine ondansetron 2021- No [id number] 4mg Take 1 Univers (ZOFRAN) 4 12-12 tablet by ity of mg tablet 00:00: 00:00 mouth [place] 00 :00 every 6 Medical (six) Branch hours as needed for Nausea and Vomiting (N/V). ondansetron 2021- No [id number] 4mg Take 1 Univers (ZOFRAN) 4 12-12 tablet by ity of mg tablet 00:00: 00:00 mouth [place] 00 :00 every 6 Medical (six) Branch hours as needed for Nausea and Vomiting (N/V). BREZTRI 2021- No 2{puff} Inhale 2 Un rosemary AEROSPHERE 09-23- Puffs 2 ity o f 160-9-4.8 00:00: 00:00 (two) [place] mcg/actuati 00 :00 times Medical on HFAA daily. Branch BREZTRI 2021- No 2{puff} Inhale 2 Un rosemary AEROSPHERE 09-23- Puffs 2 ity o f 160-9-4.8 00:00: 00:00 (two) [place] mcg/actuati 00 :00 times Medical on HFAA daily. Branch levothyroxi Yes 50ug Take 50 Uni vers ne 88 mcg 4-30 mcg by ity of tablet 00:00: mouth [place] 00 every Medical morning. Branch levothyroxi Yes 50ug Take 50 Uni vers ne 88 mcg 4-30 mcg by ity of tablet 00:00: mouth [place] 00 every Medical morning. Branch amitriptyli Yes 1{tbl} Take 1 Un rosemary ne 25 mg 3-01 tablet by ity of tablet 00:00: mouth at [place] 00 bedtime. Medical Branch amitriptyli Yes 1{tbl} Take 1 Un rosemary ne 25 mg 3-01 tablet by ity of tablet 00:00: mouth at [place] [address] bedtime. Medical Branch LINZESS 145 0 2021- No 1{tbl} Take 1 U nivers mcg capsule 05-28 tablet by it y of 00:00: 00:00 mouth [place] 00 :00 daily. Medical Branch LINZESS 145 0 2021- No 1{tbl} Take 1 U nivers mcg capsule 05-28 tablet by it y of 00:00: 00:00 mouth [place] 00 :00 daily. Medical Branch rivaroxaban 2019-04 Yes 20mg QD Take 20 mg Methodi (XARELTO) 1-[address] 20 mg 15:56: daily. Hospita tablet 59 l amoxicillin 2019-04 Yes 500mg QD Take 500 M ethodi (AMOXIL) 1-[address] 500 MG 15:56: mouth Hospita capsule 59 daily. l group home prophylaxi s montelukast 2019-04 Yes 10mg QD Take 10 mg Methodi (SINGULAIR) 1-[address] 10 mg 15:56: daily. Hospita tablet 59 l tamsulosin 2019-04 Yes .4mg QD Take 0.4 Met hodi (FLOMAX) 1-[address] 0.4 mg 15:56: mouth Hospita capsule 59 daily. l topiramate 2019-04 Yes 150mg Q.5D Take 150 Me thodi (TOPAMAX) 1-[address] 50 MG 15:56: mouth 2 Hospita tablet 59 (two) l times a day. fluticasone 2019-04 Yes QD Inhale 1 Me thodi -umeclidin- 1-[address] vilanter 15:56: s daily. Hospi ta (Trelegy 59 l Ellipta) 100-62.5-25 mcg blister with device powder for inhalation zolpidem 2019-04 Yes 10mg QD Take 10 mg Met hodi (AMBIEN) 10 1-[address] mg tablet 15:56: nightly. Hosp william 59 l levothyroxi 2019-04 Yes 88ug QD Take 88 Met hodi ne 1-[address] (SYNTHROID) 15:56: mouth Hospi ta 88 mcg 59 daily. l tablet galcanezuma 2019-04 Yes 120mg Q30D Inject 120 Methodi b-gnlm 1-[address] (Emgality 15:56: the skin Hosp william Pen) 120 59 every 30 l mg/mL pen (thirty) days. promethazin 2019-04 Yes 25mg Q6H Take 25 mg Methodi e 1-[address] (PHENERGAN) 15:56: every 6 Hos martine 25 MG 59 (six) l tablet hours as needed for nausea or vomiting. lansoprazol 2019-04 Yes 30mg QD Take 30 mg Methodi e 1-[address] (PREVACID) 15:56: daily. Hospi ta 30 MG 59 l capsule proMETHazin 2018-04- No 25mg Take 1 Uni vers e 25 mg 0-16 12-04 tablet by ity of tablet 00:00: 00:00 mouth [place] 00 :00 every 6 Medical (six) Branch hours as needed for Nausea and Vomiting (N/V). proMETHazin 2018-04- No 25mg Take 1 Uni vers e 25 mg 0-16 12-04 tablet by ity of tablet 00:00: 00:00 mouth [place] 00 :00 every 6 Medical (six) Branch hours as needed for Nausea and Vomiting (N/V). amoxicillin 2021- No Unive rs 500 mg 05-18 ity of capsule 00:00: 00:00 [place] 00 :00 Medical Branch amoxicillin 2021- No Unive rs 500 mg 05-18 ity of capsule 00:00: 00:00 [place] 00 :00 Medical Branch atomoxetine 2021- No Unive rs 60 mg 05-05 ity of capsule 00:00: 00:00 [place] 00 :00 Medical Branch atomoxetine 2021- No Unive rs 60 mg 05-05 ity of capsule 00:00: 00:00 [place] 00 :00 Medical Branch albuterol Yes Univers 1.25 mg/3 1-10 ity of mL 00:00: [place] nebulizer 00 Medical solution Branch albuterol Yes Univers 1.25 mg/3 1-10 ity of mL 00:00: [place] nebulizer 00 Medical solution Branch PROAIR HFA 2021- No Univer s 90 04-14 ity of mcg/actuati 00:00: 00:00 [place] on inhaler 00 :00 Medical Branch PROAIR HFA 2021- No Univer s 90 04-14 ity of mcg/actuati 00:00: 00:00 [place] on inhaler 00 :00 Medical Branch BYSTOLIC 5 2015-04- No Univer s mg tablet 05-10 ity of 00:00: 00:00 [place] 00 :00 Medical Branch BYSTOLIC 5 2015-04- No Univer s mg tablet 05-10 ity of 00:00: 00:00 [place] 00 :00 Medical Branch PROCTOSOL 2015-04- No Univers HC 2.5 % 04-19 ity of rectal 00:00: 00:00 [place] cream 00 :00 Medical Branch PROCTOSOL 2015-04- No Univers HC 2.5 % 04-19 ity of rectal 00:00: 00:00 [place] cream 00 :00 Medical Branch LIALDA 1.2 2021- No Univer s gram EC 08-21 ity of tablet 00:00: 00:00 [place] 00 :00 Medical Branch LIALDA 1.2 2021- No Univer s gram EC 08-21 ity of tablet 00:00: 00:00 [place] 00 :00 Medical Branch Immunizations Ordered Immunization Filled Immunization Date Status Commen ts Source Name Name ISAAK LIAM PF 2020-01-[address] 00:00:00 Hospital Vital Signs Vital Name Observation Time Observation Value Comments Source Systolic blood 2021-12-04 14:31:00 128 mm[Hg] Univer sity of pressure [facility] Diastolic blood 2021-12-04 14:31:00 84 mm[Hg] Unive rsity of [facility] Heart rate 2021-12-04 14:31:00 100 /min [facility] Body temperature 2021-12-04 14:31:00 [facility].67 [facility] height 2021-12-04 14:31:00 162.6 cm [facility] Body weight 2021-12-04 14:31:00 95.709 kg [facility] BMI 2021-12-04 14:31:00 36.22 kg/m2 [facility] Procedures This patient has no known procedures. Plan of Care Planned Activity Planned Date Details Comments Source Future Scheduled 2021-12-03 HEPATITIS B VACCINES [facility] Test 21:07:39 (1 of 3 - 3-dose series) [code = HEPATITIS B VACCINES (1 of 3 - 3-dose series)] Future Scheduled 2021-12-03 COVID-19 VACCINE (#1) [facility] [place] [facility] Test 21:07:39 [code = COVID-19 VACCINE (#1)] Future Scheduled 2021-12-03 Pneumococcal Vaccine: [facility] [place] [facility] Test 21:07:39 Pediatrics (0 to 5 Years) and At-Risk Patients (6 to 64 Years) (1 - PCV) [code = Pneumococcal Vaccine: Pediatrics (0 to 5 Years) and At-Risk Patients (6 to 64 Years) (1 - PCV)] Future Scheduled 2021-12-03 Hepatitis C screening [facility] [place] [facility] Test 21:07:39 (procedure) [code = 221097066] Future Scheduled 2021-12-03 SHINGLES VACCINES (1 [facility] Test 21:07:39 of 2) [code = SHINGLES VACCINES (1 of 2)] Future Scheduled 2021-12-03 Screening for [facility] Test 21:07:39 malignant neoplasm of cervix (procedure) [code = 073324495] Future Scheduled 2021-12-03 BREAST CANCER [facility] Test 21:07:39 SCREENING [code = BREAST CANCER SCREENING] Future Scheduled 2021-12-03 COLONOSCOPY SCREENING [facility] Test 21:07:39 [code = COLONOSCOPY SCREENING] Future Scheduled 2021-12-03 [facility] Test 21:07:39 [code = INFLUENZA VACCINE] Encounters Start End Encounter Admission Attending Care Care Encounter Source Date/Time Date/Time Type Type Clinicians Facility Department ID 2021-12-04 2021-12-04 Office LillyBARBARA [id number] Univers 09:00:00 10:00:00 Visit Denis Guzman HEALTH [id number] ity [facility] [id number] [id number] [address] 2021-12-04 2021-12-04 Outpatient DENIS SHEA [facility] [id number] Univers 09:00:00 09:00:00 [facility]-09-[facility] 2020-09-26 Laboratory Lab, [facility] [id number] 13:29:23 13:49:23 Only Fam b I Health [id number] [place] [id number] Professio [phone] nal 044 Office Building One 2020-09-24 2020-09-24 [facility] [id number] 10:40:37 23:59:00 Encounter [place] PRIMARY [id number] CARE [id number] PAVILLION [id number] 2020-08-30 2020-08-30 Refill Lilly [facility] [id number] 00:00:00 00:00:00 Denis Gregorioton [id number] [place] [id number] Professio [phone] nal 092 Building 2020-08-13 2020-08-13 [facility] [id number] 08:23:48 23:59:00 Encounter [place] PRIMARY [id number] CARE [id number] PAVILLION [id number] 2020-08-13 2020-08-13 Office Amina, [facility] [id number] 08:18:13 09:11:59 Visit [place] [facility] [id number] [facility] [id number] [facility] [id number] 2020-02-22 2020-02-22 Outpatient LE, T[facility]NER [facility] [id number] [place] 00:00:00 00:00:[address] 2020-02-05 2020-02-05 Outpatient LE, TANNER [facility] 021 [id number] [place] 00:00:00 00:00:[address] 2020-02-01 2020-02-01 Outpatient DARSHAN, [facility] [id number] [place] 00:00:00 00:00:[address] 2020-02-01 2020-02-01 Outpatient DARSHAN, [facility] [id number] [place] 00:00:00 00:00:[address] 2020-01-30 2020-01-30 Outpatient ANA, [facility] [id number] [place] 00:00:00 00:00:00 AGUILA [address] 2020-01-13 2020-01-21 Inpatient RICKY, [facility] [id number] [place] 00:00:00 00:00:00 KAITLIN [address] Results Test Description Test Time Test Comments Results Result Comments Source SARS-CoV-2 (COVID-19) RNA [Presence] in Respiratory sp ecimen by 2020-02-01 17:41:46 FARIDA with probe detection Test Item Value Reference Range Interpretation Comme nts SARS-CoV-2 (COVID-19) RNA [Presence] in Respiratory Not detected No t-Detected specimen by FARIDA with probe detection (test code = 77627-6) SARS-CoV-2 (COVID-19) RNA [Presence] in Respiratory specimen by FARIDA with probe [id number] 20:45:31 Test Item Value Reference Range Interpretation Comments SARS-CoV-2 (COVID-19) RNA Not detected Not-Detected [Presence] in Respiratory specimen by FARIDA with probe detection (test code = 76941-1)
[2021-12-11 17:26] LABS: Urine Blood Negative (Negative); Urine Glucose Negative (Negative); Urine Protein Negative (Negative); Urine pH 5.5 (5.0-7.0)
[2021-12-11 17:31] LABS: Absolute Lymphocytes (CBC) 2.6 K/uL (0.7-4.9); Hematocrit 46.3 % (36.0-45.0); Lymphocytes % 35.6 % (15.3-44.8); MCV 88.2 fL (80-100); MPV 7.6 fL (7.6-11.3); RBC Red Blood Cell Count 5.24 M/uL (3.86-4.86)
[2021-12-11] MEDS ORDERED: ONDANSETRON 4 MG/2 ML VIAL ONE (17:42)
[2021-12-11 17:43] LABS: Urine Bacteria <20 /HPF (<20); Urine RBC <5 /HPF (None Seen)
[2021-12-11 17:49] LABS: Albumin 3.8 g/dL (3.4-5.0); Bilirubin Total 0.6 mg/dL (0.2-1.0); Protein, Total 6.9 g/dL (6.4-8.2)
--- NOTE | 2021-12-11 17:58 | RAD REPORT ---
EXAM DESCRIPTION: CT - Abdomen Pelvis Wo Contrast - 12/11/2021 5:26 pm CLINICAL HISTORY: Pelvic pain and bilateral flank pain COMPARISON: Abdomen Pelvis W Contrast dated 01/04/2020 TECHNIQUE: Axial [address] imaging of the abdomen and pelvis was performed without IV contrast. No IV contrast was given because of allergy, abnormal renal function, patient refusal or physician re quest. No oral contrast administered. All CT scans are performed using dose optimization technique as appropriate and may include automated exposure control or mA/KV adjustment according to patient size. FINDINGS: No suspicious findings in the lung bases. Bilateral breast implants are in place. The liver, spleen and pancreas show no suspicious findings on non-contrast imaging. Cholecystectomy c lips are present. No biliary tree dilatation. No hydronephrosis or suspicious renal mass. No obstructing calculi seen. At the anterior inferior lef t kidney there is a 3.5 centimeter predominantly fatty mass. This has characteristics of an incidenta l angiomyolipoma. Size may be fractionally increased from 20/20. Margins are not as distinct on this noncontrast study which may account for the differences in measurements. No progressive changes seen. No significant adrenal finding. Isodense renal masses and pyelonephritis cannot be excluded in the a bsence of IV contrast. Contracted urinary bladder shows no gross abnormality. Uterus is absent. Ovari es are absent or atrophic. Russo of vaginal vault or similar to prior imaging. No dilated bowel loops or bowel wall thickening. No free air, free fluid or inflammatory stranding. No hernia, mass or bulky lymphadenopathy. No suspicious bony findings. IMPRESSION: Non-contrast enhanced CT abdomen and pelvis imaging show no acute or emergent finding. No hydronephrosis, obstructing calculus or acute finding seen as a source for pelvic or flank pain . Patient has an angiomyolipoma in the lower pole of the left kidney that may be fractionally larger th an in 2020. Margins are not as distinct on today's study due to the absence contrast. This may accoun t for slight size difference between the 2 studies. Full assessment is limited is the absence of IV contrast.
[2021-12-11] MEDS ORDERED: MORPHINE 4 MG/ML SYR ONE ×2 (18:32→21:10)
--- NOTE | 2021-12-11 20:37 | RAD REPORT ---
EXAM DESCRIPTION: US - Pelvis Complete - 12/11/2021 7:47 pm CLINICAL HISTORY: ABD PAIN Pelvic pain. COMPARISON: PELVIS W CONTRAST dated 05/31/2014; Abdomen Pelvis Wo Contrast dated 12/11/2021 FINDINGS: Transabdominal and transvaginal ultrasound was performed. Hysterectomy. Ovaries not visualized. No adnexal masses identified. No free fluid. IMPRESSION: Hysterectomy. The ovaries were not visualized either transabdominally or transvaginally. A normal size left ovary is identified on the same-day CT. The right ovary is not visualized on the CT.
--- NOTE | 2021-12-11 20:39 | ER ---
Nurse's Notes [facility] Name: Marcie Obando Age: 56 yrs Sex: Female : 1965 Arrival Date: 12/11/2021 Time: 16:51 Bed DIS1 Private MD: Diagnosis: Lower abdominal pain, unspecified;Bilateral Flank pain;angiomyolipoma in the lower pole of the left kidney Presentation: 12/11 17:14 Chief complaint: Patient states: right sided abd pain and back pain. Coronavirus iw screen: At this time, the client does not indicate any symptoms associated with coronavirus-19. Ebola Screen: Patient negative for fever greater than or equal to 101.5 degrees Fahrenheit, and additional compatible Ebola Virus Disease symptoms Patient denies exposure to infectious person. Patient denies travel to an Ebola-affected area in the 21 days before illness onset. No symptoms or risks identified at this time. Onset of symptoms was December 11, 2021. 17:14 Method Of Arrival: Ambulatory iw 17:14 Acuity: ROSSI 3 iw Triage Assessment: 21:50 General: Appears. eh3 Historical: - Allergies: 17:16 NKA; iw - Home Meds: 17:16 Ambien 10 mg Oral tab 1 tab once daily [Active]; amoxicillin 500 mg Oral tab 1 tab iw daily [Active]; Bactrim DS Oral once daily [Active]; levothyroxine 88 mcg tab 1 tab once daily [Active]; tamsulosin 0.4 mg Oral cp24 1 cap nightly [Active]; sumatriptan 20 mg/actuation nasal spry 1 spray daily for Migraine [Active]; topiramate 50 mg Oral tab 2 tabs 2 times per day [Active]; Trazodone Oral [Active]; Xarelto 20 mg Oral tab 1 tab once daily [Active]; - PMHx: 17:16 Bipolar disorder; blood clots; Migraines; Hypertension; stage 3 renal disease; iw Hypothyroidism; UTI; Screenin:34 Abuse screen: Denies threats or abuse. Denies injuries from another. Nutritional iw screening: No deficits noted. Tuberculosis screening: No symptoms or risk factors identified. Fall Risk IV access (20 points). Assessment: 18:20 General: Behavior is calm, cooperative. Pain: Complains of pain in left lower quadrant iw and right lower quadrant. Neuro: Level of Consciousness is awake, alert, obeys commands, Oriented to person, place, time, situation, Moves all extremities. Respiratory: Airway is patent Respiratory effort is even, unlabored. GI: Bowel sounds present X 4 quads. Abd is soft X 4 quads Reports lower abdominal pain. Derm: No signs and/or symptoms reported regarding the dermatologic system. Skin is intact, is healthy with good turgor. Musculoskeletal: Range of motion: intact in all extremities. 19:34 Reassessment: Patient appears in no apparent distress at this time. Patient and/or iw family updated on plan of care and expected duration. Pain level reassessed. Patient is alert, oriented x 3, equal unlabored respirations, skin warm/dry/pink. Vital Signs: 17:17 BP 137 / 98; Pulse 89; Resp 16; Pulse Ox 95% on R/A; iw ED Course: 16:51 Patient arrived in ED. rg4 16:51 Camron Cedeno DO is Attending Physician. ms3 17:00 Inserted saline lock: 20 gauge in left antecubital area, using aseptic technique. Blood iw collected. 17:15 Triage completed. iw 17:17 Arm band placed on. iw 17:17 Patient has correct armband on for positive identification. iw 17:28 CT Abd/Pelvis - Without Contrast In Process Unspecified. EDMS 18:15 Tere Fuentes, RN is Primary Nurse. iw 18:59 Attending Physician role handed off by Camron Cedeno DO rn 18:59 Jonathan Desouza MD is Attending Physician. rn 19:49 US Pelvis Complete In Process Unspecified. EDMS Administered Medications: 17:35 Drug: Zofran (Ondansetron) 4 mg Route: IVP; Site: left antecubital; iw 21:04 Follow up: Response: No adverse reaction eh3 18:29 Drug: morphine 4 mg Route: IVP; Infused Over: 4 mins; Site: left antecubital; iw 21:04 Follow up: Response: Pain is unchanged, physician notified eh3 21:04 Drug: morphine 4 mg Route: IVP; Infused Over: 4 mins; Site: left antecubital; eh3 21:50 Follow up: Response: Marked relief of symptoms; Pain is decreased eh3 Outcome: 20:38 Discharge ordered by . rn 21:51 Patient left the ED. eh3 Signatures: Dispatcher [employer] Tere Horta, Jonathan Kent RN, MD MD rn Garcia, Rubi rg4 Camron Cedeno DO DO ms3 Jenna Myers, VERN RN 3
--- NOTE | 2021-12-11 20:39 | EDPHYS ---
Physician Documentation [facility] Name: Marcie Obando Age: 56 yrs Sex: Female : 1965 Arrival Date: 12/11/2021 Time: 16:51 Bed DIS1 Private MD: ED Physician Jonathan Desouza HPI: 12/11 18:23 This 56 yrs old Female presents to ER via Ambulatory with complaints of Abdominal Pain, ms3 Back Pain. 18:23 56-year-old female with past medical history of COPD, migraines, chronic kidney disease ms3 stage III presents for 1 month of urinary tract symptoms, pelvic pain, flank pain. Patient states the pain is worse since yesterday. Patient rates the pain a 10/10 describes pain as burning. Patient denies fevers, chills, nausea, vomiting. Patient endorses diarrhea.. Historical: - Allergies: 17:16 NKA; iw - Home Meds: 17:16 Ambien 10 mg Oral tab 1 tab once daily [Active]; amoxicillin 500 mg Oral tab 1 tab iw daily [Active]; Bactrim DS Oral once daily [Active]; levothyroxine 88 mcg tab 1 tab once daily [Active]; tamsulosin 0.4 mg Oral cp24 1 cap nightly [Active]; sumatriptan 20 mg/actuation nasal spry 1 spray daily for Migraine [Active]; topiramate 50 mg Oral tab 2 tabs 2 times per day [Active]; Trazodone Oral [Active]; Xarelto 20 mg Oral tab 1 tab once daily [Active]; - PMHx: 17:16 Bipolar disorder; blood clots; Migraines; Hypertension; stage 3 renal disease; iw Hypothyroidism; UTI; ROS: 18:23 Constitutional: Negative for fever, and chills. Neck: Negative for injury, pain, and ms3 swelling, Cardiovascular: Negative for chest pain, and palpitations. Respiratory: Negative for shortness of breath, cough, wheezing, and pleuritic chest pain. 18:23 Skin: Negative for injury, rash, and discoloration. 18:23 Abdomen/GI: Positive for abdominal pain, diarrhea, Negative for nausea and vomiting. 18:23 All other systems are negative. Exam: 18:23 Constitutional: This is a well developed, well nourished patient who is awake, alert, ms3 and in no acute distress. Head/Face: Normocephalic, atraumatic. Cardiovascular: Regular rate and rhythm with a normal S1 and S2. No gallops, murmurs, or rubs. Normal PMI, no JVD. No pulse deficits. Respiratory: Lungs have equal breath sounds bilaterally, clear to auscultation and percussion. No rales, rhonchi or wheezes noted. No increased work of breathing, no retractions or nasal flaring. 18:23 Skin: Warm, dry with normal turgor. Normal color with no rashes, no lesions, and no evidence of cellulitis. Psych: Awake, alert, with orientation to person, place and time. Behavior, mood, and affect are within normal limits. 18:23 Abdomen/GI: Inspection: abdomen appears normal, Bowel sounds: normal, Palpation: moderate abdominal tenderness, in the right lower quadrant and left lower quadrant. Vital Signs: 17:17 BP 137 / 98; Pulse 89; Resp 16; Pulse Ox 95% on R/A; iw MDM: 16:59 Patient medically screened. ms3 18:23 Differential diagnosis: Hydronephrosis Pyelonephritis UTI. Data reviewed: vital signs, ms3 nurses notes, lab test result(s), radiologic studies. Counseling: I had a detailed discussion with the patient and/or guardian regarding: the historical points, exam findings, and any diagnostic results supporting the discharge/admit diagnosis, lab results, radiology results. Special discussion: I discussed with the patient the need to follow-up with the PCP/specialist for the noted incidental finding on X-ray/CT scanning. 20:29 ED course: Signed out to me by Dr. Cedeno, plan was to dc home after u/s result, rn anticipate it being negative as ct does not show anything acute in pelvis. Patient already in contact with her PCP who plans on GI referral when discharged. . 12/11 17:10 Order name: CBC with Diff; Complete Time: 17:59 ms3 12/11 17:10 Order name: CMP; Complete Time: 17:59 ms3 12/11 17:10 Order name: Lipase; Complete Time: 17:59 ms3 12/11 17:10 Order name: Urine Microscopic Only; Complete Time: 17:59 ms3 12/11 17:26 Order name: Urine Dipstick-Ancillary; Complete Time: 17:59 EDMS 12/11 17:46 Order name: Urine Culture EDMS 12/11 17:10 Order name: CT Abd/Pelvis - Without Contrast; Complete Time: 17:59 ms3 12/11 17:10 Order name: IV Saline Lock; Complete Time: 17:20 ms3 12/11 17:10 Order name: Labs collected and sent; Complete Time: 17:20 ms3 12/11 17:10 Order name: Urine Dipstick-Ancillary (obtain specimen); Complete Time: 17:20 ms3 12/11 18:06 Order name: US Pelvis Complete; Complete Time: 20:38 ms3 Administered Medications: 17:35 Drug: Zofran (Ondansetron) 4 mg Route: IVP; Site: left antecubital; iw 21:04 Follow up: Response: No adverse reaction eh3 18:29 Drug: morphine 4 mg Route: IVP; Infused Over: 4 mins; Site: left antecubital; iw 21:04 Follow up: Response: Pain is unchanged, physician notified eh3 21:04 Drug: morphine 4 mg Route: IVP; Infused Over: 4 mins; Site: left antecubital; eh3 21:50 Follow up: Response: Marked relief of symptoms; Pain is decreased eh3 Disposition Summary: 12/11/21 20:38 Discharge Ordered Location: Home rn Condition: Stable rn Diagnosis - Lower abdominal pain, unspecified rn - Bilateral Flank pain rn - 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
[2021-12-12 01:11] VITALS: BP 137/98; O2SAT 95
== END 2021-12-11 21:51 | disposition home or self-care (01) ==
LOC: ER 16:49
DX: R10.30 Lower abdominal pain, unspecified (principal); D17.71 Benign lipomatous neoplasm of kidney; R10.9 Unspecified abdominal pain; I12.9 Hypertensive chronic kidney disease with stage 1 through stage 4 chronic kidney disease, or unspecified chronic kidney disease; N18.30 Chronic kidney disease, stage 3 unspecified; E03.9 Hypothyroidism, unspecified; Z79.01 Long term (current) use of anticoagulants
CPT/HCPCS: 87088; 85025; 87086; 36415; 83690; 80053; 74176; 76856; 96375; 96374; 99284; J2405; 81003; 81015

== ENCOUNTER 2022-11-03 07:12 | Day surgery (SDC) | payer OTHER ==
[2022-11-02 14:05] LABS: Absolute Lymphocytes (CBC) 2.5 K/uL (0.7-4.9); Lymphocytes % 26.8 % (15.3-44.8); MCV 89.5 fL (80-100); MPV 7.5 fL (7.6-11.3); RBC Red Blood Cell Count 5.14 M/uL (3.86-4.86)
[2022-11-03] MEDS ORDERED: CEFAZOLIN SODIUM 1 GM/VIAL ONE (07:37)
[2022-11-03] MEDS ORDERED: Ringers Lactate 1,000 ML IV ONE ×2 (07:37→10:13)
[2022-11-03] MEDS ORDERED: MIDAZOLAM HCL 2 MG/2 ML INJ ONE (07:46)
[2022-11-03] MEDS ORDERED: dexAMETHasone 10 MG/ML VIAL ONE (07:46)
[2022-11-03] MEDS ORDERED: ONDANSETRON 4 MG/2 ML VIAL ONE (07:46)
[2022-11-03] MEDS ORDERED: propofoL 200 MG/20 ML VIAL IV ONE (07:46)
[2022-11-03] MEDS ORDERED: FENTANYL CITR 100 MCG/2 ML ONE (07:46)
[2022-11-03] MEDS ORDERED: KETOROLAC 30 MG/ML INJ ONE (07:47)
[2022-11-03] MEDS ORDERED: LIDOCAINE 2% MPF 5 ML VIAL ONE (07:47)
[2022-11-03] MEDS ORDERED: ALBUTEROL INHALER 60 PUFF/8 GM IH ONE (08:38)
[2022-11-03] MEDS: HYDROMORPHONE HCL 1 MG/ML INJ ONE ×4 (09:23→09:42)
[2022-11-03] MEDS: FENTANYL CITR 100 MCG/2 ML ONE ×3 (09:48→10:05)
[2022-11-03] MEDS ORDERED: HYDROCODONE/APAP 10/325 TAB ONE (10:42)
[2022-11-03 11:54] VITALS: BP 101/73; TEMP 96.8; O2SAT 99
--- NOTE | 2022-11-03 16:21 | OP ---
Date of Procedure: 11/03/2022 Surgeon: Bruno Tineo MD Preoperative Diagnosis: Left knee pain with mechanical symptoms despite conservative management. 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 2.Some fraying of the lateral meniscus. 3.Abundant synovial tissue and fat pad which may be causing impingement. Procedures: 1.Medial abrasive chondroplasty. 2.Limited synovial debridement. 3.Debridement of lateral meniscal fraying. Estimated Blood Loss: Less than 10 cc. Complications: No complications. Specimen: No pathology specimen sent. Indications For Operation: Ms. Obando is a 57-year-old female, who has left knee pain and swelling. S he has essentially normal x-rays and MRIs, not that impressive sources of pain and mechanical symptom s as well as swelling are not completely clear; however, at this time risks, benefits, and alternativ es to arthroscopy have been discussed with the patient. She states she understands things as present ed and wishes to proceed. Description Of Procedure: The patient was taken to the operating room, placed in supine position. G eneral anesthesia was easily obtained by staff. Following this, a well-padded tourniquet was placed on the superior left thigh. Left lower extremity was then prepped and draped in the usual fashion pr isi. Following this, a standard superior medial arthroscopy portal was then made for placement o f the drainage needle and drainage needle was placed with liberation of approximately 10 cc of rather normal-appearing synovial fluid. This was followed by placement of inferolateral arthroscopy portal for introduction of the camera. This was placed atraumatically with 1 pass. The knee was then sequ entially examined including suprapatellar pouch, medial and lateral gutters, medial and lateral shahana rtments as well as the notch and patellofemoral joint. Pertinent findings included what appeared to be a chondral flap on the medial femoral condyle as well as chondromalacia of the medial femoral cond yle as well as undersurface of the patella with some typical changes of the trochlea. Also seen is w hat appeared to be some fraying of the lateral meniscus. A standard medial arthroscopy portal was th en established using a needle for localization and probe was then placed in the knee. The medial men iscus was then probed throughout its entirety without any sign of meniscal tear. The chondral flap o n the medial femoral condyle did appear to be mobile. The lateral meniscus was probed and does have some fraying. I do not find any dominant tear; however, there is fraying evident. After this, a 3.5 shaver was then used to do light abrasive chondroplasty of the medial femoral condyle only to remove any unstable flaps and no attempt was made to remove any stable chondral tissue. Attention was then turned to the lateral meniscus, which was then gently debrided until it was firm hook, stable, well contoured base. The knee was again examined in all of the above areas. There was found to be quite a significant amount of fat pad. Some of this may be impinging in the patellofemoral joint and may b e a source of problem. Therefore, there was debridement done here as well as debridement was done wi thin the notch for any notch impingement. There was 1 small area of fat pad, which did appear to hav e a rather firm, rounded appearance, could be consistent with a loose body, which would be very small within the fat pad and this was debrided. The knee was again examined in above all of the above are as with no further pathology seen, which was amenable to arthroscopic intervention. After this, the inferior arthroscopy portals then stapled shut. The superior medial arthroscopy portal was used for placement of Marcaine with epinephrine. This was then stapled. The patient was placed in a well-pad ded sterile dressing, awakened, and taken recovery room in good condition. No complications. /YAMILAL Voice ID: [id number] Report ID: [id number]
--- NOTE | 2022-11-04 17:42 | EKG ---
Test Date: 2022-11-02 Test Time: 13:30:00 Jail Keeper: KAUSHIK MEASUREMENT RESULTS: Intervals: Rate: 74 NC: 164 QRSD: 78 QT: 378 QTc: 419 [place]: P: 20 NC: 164 QRS: 26 T: 60 INTERPRETIVE STATEMENTS: Normal sinus rhythm Normal ECG Compared to ECG 09/26/2020 22:26:13 No significant changes Electronically Signed On 11-04-22 17:35:42 CDT by Charan Yoo
== END 2022-11-03 11:05 | disposition home or self-care (01) ==
LOC: OR 07:12
PROVIDERS: ATTEND Orthopaedic Surgery
PROC: 0SQD4ZZ Repair Left Knee Joint, Percutaneous Endoscopic Approach (ICD-10-PCS; 2022-11-03)
PROC: 0SBD4ZZ Excision of Left Knee Joint, Percutaneous Endoscopic Approach (ICD-10-PCS; principal; 2022-11-03 08:45)
DX: M17.12 Unilateral primary osteoarthritis, left knee (principal); I10 Essential (primary) hypertension; J45.909 Unspecified asthma, uncomplicated; E66.9 Obesity, unspecified; N18.30 Chronic kidney disease, stage 3 unspecified; Z86.718 Personal history of other venous thrombosis and embolism
CPT/HCPCS: 29876; 29881; 29879; 93005; 85025; 80048; 36415; J2704; J2001; J2250; J3010 ×2; J1100; J1170 ×2; J2405; J7120 ×2; J0690

== ENCOUNTER 2023-08-17 15:16 | Emergency (ER) | payer OTHER ==
--- NOTE | 2023-08-17 15:57 | EDPHYS ---
Physician Documentation [facility] Name: Marcie Obando Age: 58 yrs Sex: Female : 1965 Arrival Date: 08/17/2023 Time: 15:16 Bed DX4 Private MD: ED Physician Rigo Wiley HPI: 08/16 15:52 This 58 yrs old Female presents to ER via Unassigned with complaints of Mouth donte Problem. 15:52 The patient presents with pain, redness, ulceration. The problem is located in the left donte cheek. Onset: The symptoms/episode began/occurred 2 day(s) ago. Duration: The symptoms are continuous, and are steadily getting worse. Modifying factors: The symptoms are alleviated by nothing, the symptoms are aggravated by chewing. Associated signs and symptoms: The patient has no apparent associated signs or symptoms. Severity of symptoms: At their worst the symptoms were moderate, in the emergency department the symptoms are actually worse, moderately. The patient has not experienced similar symptoms in the past. Historical: - Allergies: 16:03 NKA; kb3 - PMHx: 16:03 Bipolar disorder; blood clots; Hypertension; Hypothyroidism; Migraines; stage 3 renal kb3 disease; UTI; - PSHx: 16:03 Total abdominal hysterectomy; kb3 - Immunization history:: Adult Immunizations up to date, Client reports having NOT received the Covid vaccine. - Infectious Disease History:: Denies. - Family history:: not pertinent. - Social history:: Smoking status: Patient denies any tobacco usage or history of. ROS: 15:53 Constitutional: Negative for fever, chills, and weight loss, Eyes: Negative for injury, donte pain, redness, and discharge, Neck: Negative for injury, pain, and swelling, Cardiovascular: Negative for chest pain, palpitations, and edema, Respiratory: Negative for shortness of breath, cough, wheezing, and pleuritic chest pain, Abdomen/GI: Negative for abdominal pain, nausea, vomiting, diarrhea, and constipation, Back: Negative for injury and pain, : Negative for injury, bleeding, discharge, and swelling, MS/Extremity: Negative for injury and deformity, Skin: Negative for injury, rash, and discoloration, Neuro: Negative for headache, weakness, numbness, tingling, and seizure, Psych: Negative for depression, anxiety, suicide ideation, homicidal ideation, and hallucinations, Allergy/Immunology: Negative for hives, rash, and allergies, Endocrine: Negative for neck swelling, polydipsia, polyuria, polyphagia, and marked weight changes, Hematologic/Lymphatic: Negative for swollen nodes, abnormal bleeding, and unusual bruising, 15:53 ENT: Positive for injury or acute deformity, abrasion, Exam: 15:53 Constitutional: This is a well developed, well nourished patient who is awake, alert, donte and in no acute distress. Eyes: Pupils equal round and reactive to light, extra-ocular motions intact. Lids and lashes normal. Conjunctiva and sclera are non-icteric and not injected. Cornea within normal limits. Periorbital areas with no swelling, redness, or edema. Neck: Trachea midline, no thyromegaly or masses palpated, and no cervical lymphadenopathy. Supple, full range of motion without nuchal rigidity, or vertebral point tenderness. No Meningismus. Chest/axilla: Normal chest wall appearance and motion. Nontender with no deformity. No lesions are appreciated. Cardiovascular: Regular rate and rhythm with a normal S1 and S2. No gallops, murmurs, or rubs. Normal PMI, no JVD. No pulse deficits. Respiratory: Lungs have equal breath sounds bilaterally, clear to auscultation and percussion. No rales, rhonchi or wheezes noted. No increased work of breathing, no retractions or nasal flaring. Abdomen/GI: Soft, non-tender, with normal bowel sounds. No distension or tympany. No guarding or rebound. No evidence of tenderness throughout. Back: No spinal tenderness. No costovertebral tenderness. Full range of motion. Female : Normal external genitalia. Skin: Warm, dry with normal turgor. Normal color with no rashes, no lesions, and no evidence of cellulitis. MS/ Extremity: Pulses equal, no cyanosis. Neurovascular intact. Full, normal range of motion. Neuro: Awake and alert, GCS 15, oriented to person, place, time, and situation. Cranial nerves II-XII grossly intact. Motor strength 5/5 in all extremities. Sensory grossly intact. Cerebellar exam normal. Normal gait. Psych: Awake, alert, with orientation to person, place and time. Behavior, mood, and affect are within normal limits. 15:53 Head/face: Noted is swelling, tenderness, that is moderate, of the left jaw, Vital Signs: 16:01 Weight 104.33 kg; Height 5 ft. 4 in. ; kb3 16:03 BP 148 / 94; Pulse 84; Resp 18; Temp 97.8; Pulse Ox 99% ; kb3 16:01 Body Mass Index 39.48 (104.33 kg, 162.56 cm) kb3 MDM: 15:23 Patient medically screened. donte 15:54 Differential diagnosis: dental caries, gingivitis, dental abscess, aphthous ulcers, donte acute necrotizing ulcerative gingivitis, gingivostomatitis. Data reviewed: vital signs, nurses notes. Consideration of Admission/Observation Escalation of care including admission/observation considered. I considered the following discharge prescriptions or medication management in the emergency department Medications were administered in the Emergency Department. See MAR. Test considered but Not performed: Labs: no labs. Historians other than the Patient: pt well informed. Care significantly affected by the following chronic conditions: none. Counseling: I had a detailed discussion with the patient and/or guardian regarding the historical points, exam findings, and any diagnostic results supporting the discharge/admit diagnosis, the need for outpatient follow up, for definitive care, a dentist, a family practitioner. Administered Medications: 16:10 Drug: Amoxicillin-Clavulanate PO 875 mg PO once Route: PO; jl7 16:20 Follow up: Response: No adverse reaction kb3 16:10 Drug: Ibuprofen PO 600 mg PO once Route: PO; jl7 16:20 Follow up: Response: No adverse reaction kb3 16:10 Drug: Hydrocodone-Acetaminophen PO (7.5 mg-325 mg) 1 tabs PO once Route: PO; jl7 16:20 Follow up: Response: No adverse reaction kb3 16:10 Drug: GI Cocktail without - (Maalox PO 30 ml, Lidocaine Mucous Membrane 2 % 15 jl7 ml) PO once Route: PO; 16:20 Follow up: Response: No adverse reaction kb3 Disposition Summary: 08/17/23 15:57 Discharge Ordered Notes: Location: Home donte Problem: new donte Symptoms: have improved donte Condition: Stable donte Diagnosis - Oral mucositis (ulcerative) donte Followup: donte - With: Private Physician - When: 2 - 3 days - Reason: Recheck today's complaints, Continuance of care, Re-evaluation by your physician Discharge Instructions: - Discharge Summary Sheet [facility] - Oral Ulcers [facility] Forms: - Medication Reconciliation Form donte - Antibiotic Education donte - Prescription Opioid Use donte - Patient Portal Instructions donte - Leadership Thank You Letter donte Prescriptions: - acetaminophen-codeine 300-30 mg Oral tablet - take 2 tablet ORAL route every 6 hours as needed for pain; 20 tablet; Refills: [facility] 0, Product Selection Permitted - Augmentin 875-125 mg Oral Tablet - take 1 tablet ORAL route every 12 hours for 10 days; 20 tablet; Refills: 0, [facility] Product Selection Permitted - Ibuprofen 600 mg Oral Tablet - take 1 tablet ORAL route every 6 hours As needed take with food; 30 tablet; [facility] Refills: 0, Product Selection Permitted Signatures: Rigo Wiley MD MD cha Leal, Jahala RN RN jl7 Janay Nina RN RN kb3 Corrections: (The following items were deleted from the chart) 16:20 15:51 Ice pack ordered. [facility] kb3
[2023-08-17] MEDS ORDERED: AMOX/K CLAV 875 MG TAB ONE (16:02)
[2023-08-17] MEDS ORDERED: MAGNES/ALUMIN/SIMET 30ML UCUP ONE (16:02)
[2023-08-17] MEDS ORDERED: IBUPROFEN 200 MG TAB PO ONE (16:03)
[2023-08-17] MEDS ORDERED: LIDOCAINE VISCOUS 2% 10ML ORAL SOLN ONE (16:03)
[2023-08-17] MEDS ORDERED: HYDROCODONE/APAP 7.5/325 MG TAB ONE (16:08)
--- NOTE | 2023-08-17 16:22 | ER ---
Nurse's Notes [facility] Name: Marcie Obando Age: 58 yrs Sex: Female : 1965 Arrival Date: 08/17/2023 Time: 15:16 Bed DX4 Private MD: Diagnosis: Oral mucositis (ulcerative) Presentation: 08/16 16:01 Chief complaint: Patient states: blister on the inside of her left cheek since Sat. kb3 Coronavirus screen: Vaccine status: Patient reports being unvaccinated. Client denies travel out of the [place] in the last 14 days. Ebola Screen: Patient negative for fever greater than or equal to 101.5 degrees Fahrenheit, and additional compatible Ebola Virus Disease symptoms Patient denies exposure to infectious person. Patient denies travel to an Ebola-affected area in the 21 days before illness onset. Initial Sepsis Screen: Does the patient meet any 2 criteria? No. Patient's initial sepsis screen is negative. Does the patient have a suspected source of infection? No. Patient's initial sepsis screen is negative. Risk Assessment: Do you want to hurt yourself or someone else? Patient reports no desire to harm self or others. Onset of symptoms was August 14, 2023. 16:01 Method Of Arrival: Ambulatory kb3 16:01 Acuity: ROSSI 4 kb3 Triage Assessment: 16:03 General: Appears in no apparent distress. Behavior is calm, cooperative. Pain: kb3 Complains of pain in left buccal mucosa Pain radiates to left jaw Pain currently is 10 out of 10 on a pain scale. EENT: Oral mucosa is moist. Good dentition noted. Single ulceration on inside of left cheek. Historical: - Allergies: 16:03 NKA; kb3 - PMHx: 16:03 Bipolar disorder; blood clots; Hypertension; Hypothyroidism; Migraines; stage 3 renal kb3 disease; UTI; - PSHx: 16:03 Total abdominal hysterectomy; kb3 - Immunization history:: Adult Immunizations up to date, Client reports having NOT received the Covid vaccine. - Infectious Disease History:: Denies. - Family history:: not pertinent. - Social history:: Smoking status: Patient denies any tobacco usage or history of. Screenin:10 [facility] ED Fall Risk Assessment (Adult) History of falling in the last 3 months, kb3 including since admission No falls in past 3 months (0 pts) Confusion or Disorientation No (0 pts) Intoxicated or Sedated No (0 pts) Impaired Gait No (0 pts) Mobility Assist Device Used No (0 pt) Altered Elimination No (0 pt) Score/Fall Risk Level 0 - 2 = Low Risk Oriented to surroundings. Abuse screen: Denies threats or abuse. Denies injuries from another. Nutritional screening: No deficits noted. Tuberculosis screening: No symptoms or risk factors identified. Assessment: 16:07 Reassessment: No changes from previously documented assessment. General: Appears in no kb3 apparent distress. Vital Signs: 16:01 Weight 104.33 kg; Height 5 ft. 4 in. ; kb3 16:03 BP 148 / 94; Pulse 84; Resp 18; Temp 97.8; Pulse Ox 99% ; kb3 16:01 Body Mass Index 39.48 (104.33 kg, 162.56 cm) kb3 ED Course: 15:17 Patient arrived in ED. im 15:23 Rigo Wiley MD is Attending Physician. [facility] 16:03 Triage completed. kb3 16:03 Arm band placed on right wrist. Patient placed in a hallway bed. kb3 16:10 Patient has correct armband on for positive identification. Provided Education on: Plan kb3 of care. 16:10 No provider procedures requiring assistance completed. Patient did not have IV access kb3 during this emergency room visit. Administered Medications: 16:10 Drug: Amoxicillin-Clavulanate PO 875 mg PO once Route: PO; jl7 16:20 Follow up: Response: No adverse reaction kb3 16:10 Drug: Ibuprofen PO 600 mg PO once Route: PO; jl7 16:20 Follow up: Response: No adverse reaction kb3 16:10 Drug: Hydrocodone-Acetaminophen PO (7.5 mg-325 mg) 1 tabs PO once Route: PO; jl7 16:20 Follow up: Response: No adverse reaction kb3 16:10 Drug: GI Cocktail without - (Maalox PO 30 ml, Lidocaine Mucous Membrane 2 % 15 jl7 ml) PO once Route: PO; 16:20 Follow up: Response: No adverse reaction kb3 Medication: 16:10 VIS not applicable for this client. kb3 Outcome: 15:57 Discharge ordered by . [facility] 16:21 Discharged to home ambulatory, kb3 16:21 Condition: stable 16:21 Discharge instructions given to patient, Instructed on discharge instructions, follow up and referral plans. Demonstrated understanding of instructions, follow-up care, medications, 16:22 Patient left the ED. kb3 Signatures: Rigo Wiley MD MD cha Leal, Jahala, RN RN jl7 Janay Nina RN RN kb3 Emily Valdes
[2023-08-17 19:11] VITALS: BP 148/94; TEMP 97.8; O2SAT 99
== END 2023-08-17 16:22 | disposition home or self-care (01) ==
LOC: ER 15:16
DX: K12.30 Oral mucositis (ulcerative), unspecified (principal)
CPT/HCPCS: 99283

== ENCOUNTER 2023-11-02 07:21 | Observation (INO) | payer OTHER ==
[2023-11-02] MEDS ORDERED: MECLIZINE HCL 12.5 MG TAB ONE (08:14)
[2023-11-02] MEDS ORDERED: NA CHLORIDE 0.9% 1,000 ML ONE (08:15)
[2023-11-02 08:20] LABS: Absolute Basophils 0.1 K/uL (0-0.5); Absolute Eosinophils 0.1 K/uL (0-0.5); Absolute Lymphocytes (CBC) 1.9 K/uL (0.7-4.9); Absolute Monocytes 0.4 K/uL (0.1-1.3); Absolute Neutrophil 3.7 K/uL (1.8-8.0); Basophils % 0.9 % (0-1.3); Eosinophils % 1.8 % (0-4.4); Hematocrit 47.4 % (36.0-45.0); Hemoglobin 15.3 g/dL (12.0-15.0); Lymphocytes % 30.5 % (15.3-44.8); MCH 29.1 pg (27.0-35.0); MCHC 32.3 g/dL (32.0-36.0); MPV 7.8 fL (7.6-11.3); Monocytes % 7.1 % (3.3-12.3); Neutrophils % 59.7 % (41.7-73.7); Nucleated Red Blood Cells % 0.1 % (0-0); Platelets 232 thou/uL (152-406); RBC Red Blood Cell Count 5.27 M/uL (3.86-4.86); Red Cell Distribution Width 13.8 % (12.1-15.2)
--- NOTE | 2023-11-02 08:23 | RAD REPORT ---
EXAM DESCRIPTION: CT - Head Brain Wo Cont - 11/02/2023 8:13 am CLINICAL HISTORY: DIZZINESS Headache, nausea COMPARISON: Head Brain W/Wo Con dated 02/04/2016; Head Brain Wo Cont dated 07/13/2015 TECHNIQUE: All CT scans are performed using dose optimization technique as appropriate and may inclu de automated exposure control or mA/KV adjustment according to patient size. FINDINGS: No intracranial hemorrhage, hydrocephalus or extra-axial fluid collection.Mild brain atrop hy.No areas of brain edema or evidence of midline shift. The paranasal sinuses and mastoids are clear. The calvarium is intact. IMPRESSION: No acute intracranial abnormality.
[2023-11-02 08:38] LABS: Specific Gravity 1.015 (1.005-1.030); Urine Bacteria None Seen /HPF (<20); Urine Bilirubin NEGATIVE (Negative); Urine Blood Negative (Negative); Urine Clarity Extremely Turbid (Clear); Urine Color Light-Yellow (Yellow); Urine Culture Reflex Order NOT NEEDED; Urine Glucose NEGATIVE (Negative); Urine Ketones NEGATIVE (Negative); Urine Microscopic Reflex YN ORDER UMIC; Urine Mucus Slight /HPF (None Seen); Urine Nitrite NEGATIVE (Negative); Urine Protein NEGATIVE (Negative); Urine RBC <5 /HPF (None Seen); Urine Urobilinogen Normal (Normal); Urine WBC <5 /HPF (<5)
[2023-11-02 08:39] LABS: Albumin 3.6 g/dL (3.4-5.0); Albumin/Globulin Ratio 1.1 (1.1-1.8); Anion Gap 8.3 mEq/L (5.0-15.0); Bilirubin Total 0.6 mg/dL (0.2-1.0); Globulin 3.2 g/dL (2.3-3.5); Potassium 4.3 mEq/L (3.5-5.1); Protein, Total 6.8 g/dL (6.4-8.2); Troponin High Sensitivity 3.6 pg/mL (<58.9)
[2023-11-02 09:04] LABS: PT Prothrombin Time 11.8 SECONDS (9.4-12.5); PTT, Activated Partial Thromb 31.1 SECONDS (24.3-36.9); Protime INR 1.06
[2023-11-02] MEDS ORDERED: DIAZEPAM 5 MG TABLET ONE (09:46)
--- NOTE | 2023-11-02 10:59 | ER ---
Nurse's Notes [facility] Name: Marcie Obando Age: 58 yrs Sex: Female : 1965 Arrival Date: 11/02/2023 Time: 07:21 Bed 4 Private MD: Diagnosis: Dizziness and giddiness;Vertigo;Syncope Presentation: 11/01 07:37 Chief complaint: Patient states: Syncope events 10/12 and 10/30. Dizziness and nausea ll1 continues since 10/30. Coronavirus screen: Client denies travel out of the [place] in the last 14 days. At this time, the client does not indicate any symptoms associated with coronavirus-19. Ebola Screen: Patient denies travel to an Ebola-affected area in the 21 days before illness onset. Initial Sepsis Screen: Does the patient meet any 2 criteria? No. Patient's initial sepsis screen is negative. Does the patient have a suspected source of infection? No. Patient's initial sepsis screen is negative. Risk Assessment: Do you want to hurt yourself or someone else? Patient reports no desire to harm self or others. Onset of symptoms was October 13, 2023. 07:37 Method Of Arrival: Ambulatory ll1 07:37 Acuity: ROSSI 3 ll1 Triage Assessment: 07:41 General: Appears in no apparent distress. Behavior is calm, cooperative, appropriate ll1 for age. Pain: Complains of pain in R foot Quality of pain is described as aching. Neuro: Reports dizziness, a syncopal episode. GI: Reports nausea. Musculoskeletal: Reports pain in right foot. Historical: - Allergies: 07:37 NKA; ll1 - PMHx: 07:37 blood clots; Bipolar disorder; Hypertension; Hypothyroidism; Migraines; stage 3 renal ll1 disease; UTI; - PSHx: 07:37 Total abdominal hysterectomy; ll1 - Immunization history:: Adult Immunizations up to date. - Infectious Disease History:: Denies. - Social history:: Smoking status: Patient denies any tobacco usage or history of. Screenin:33 [facility] ED Fall Risk Assessment (Adult) History of falling in the last 3 months, rs5 including since admission No falls in past 3 months (0 pts) Confusion or Disorientation No (0 pts) Intoxicated or Sedated No (0 pts) Impaired Gait Yes (1 pt) Mobility Assist Device Used Yes (1 pt) Altered Elimination No (0 pt) Score/Fall Risk Level 0 - 2 = Low Risk Oriented to surroundings, Maintained a safe environment. Abuse screen: Denies threats or abuse. Nutritional screening: No deficits noted. Tuberculosis screening: No symptoms or risk factors identified. Assessment: 07:31 General: Appears in no apparent distress. uncomfortable, Behavior is calm, cooperative. rs5 Pain: Denies pain. Neuro: Level of Consciousness is awake, alert, obeys commands, Oriented to person, place, time, situation, Reports dizziness. Cardiovascular: Patient's skin is warm and dry. Rhythm is regular. Respiratory: Airway is patent Respiratory effort is even, unlabored, Respiratory pattern is regular, symmetrical. GI: Abdomen is round non-distended, Abd is soft and non tender X 4 quads. : No signs and/or symptoms were reported regarding the genitourinary system. EENT: No signs and/or symptoms were reported regarding the EENT system. Derm: Skin is intact, Skin is pink, warm \T\ dry. Musculoskeletal: Range of motion: intact in all extremities. 08:43 Reassessment: to bedside for orthostatics, pt reports dizziness when changing from rs5 sitting to standing position. 08:43 Reassessment: Patient and/or family updated on plan of care and expected duration. Pain rs5 level reassessed. Patient is alert, oriented x 3, equal unlabored respirations, skin warm/dry/pink. 09:07 Reassessment: No changes from previously documented assessment. rs5 10:20 Reassessment: Patient and/or family updated on plan of care and expected duration. Pain rs5 level reassessed. Patient is alert, oriented x 3, equal unlabored respirations, skin warm/dry/pink. 11:20 Reassessment: No changes from previously documented assessment. rs5 Vital Signs: 07:37 BP 129 / 98; Pulse 82; Resp 17; Temp 98.2; Pulse Ox 98% on R/A; Weight 104.33 kg; ll1 Height 5 ft. 4 in. ; Pain 07/13; 08:36 BP 108 / 81 Supine; Pulse 69; rs5 08:38 BP 123 / 88; Pulse 78; rs5 08:40 BP 136 / 99; Pulse 84; rs5 11:15 BP 130 / 87; Pulse 70; Resp 17; Pulse Ox 99% on R/A; rs5 07:37 Body Mass Index 39.48 (104.33 kg, 162.56 cm) ll1 07:37 Pain Scale: Adult ll1 ED Course: 07:27 Patient arrived in ED. mg5 07:33 Patient has correct armband on for positive identification. Placed in gown. Bed in low rs5 position. Call light in reach. Side rails up X2. 07:33 No provider procedures requiring assistance completed. rs5 07:36 Ky Andersen, VERN is Primary Nurse. rs5 07:37 Arm band placed on. ll1 07:40 Inserted saline lock: 22 gauge in left antecubital area, using aseptic technique. Blood rs5 collected. Flushed with 10 mL NS. 07:41 Triage completed. ll1 07:45 Fidelia Lopez MD is Attending Physician. sd2 08:15 CT Head Brain wo Cont In Process Unspecified. EDMS 10:58 Manan Desouza MD is Hospitalizing Provider. sd2 11:20 Patient admitted, IV remains in place. rs5 11:25 XRAY Foot RIGHT 3 View In Process Unspecified. EDMS Administered Medications: 08:20 Drug: NS 0.9% IV 1000 ml IV at 1 bolus Per protocol; 1000 mL bolus Route: IV; Rate: 1 rs5 bolus; Site: right antecubital; 09:17 Follow up: IV Status: Completed infusion; IV Intake: 999ml rs5 08:20 Drug: Meclizine PO 25 mg PO once Route: PO; rs5 09:17 Follow up: Response: No adverse reaction rs5 09:40 Drug: Diazepam PO 5 mg PO once Route: PO; rs5 11:12 Follow up: Response: No adverse reaction rs5 Medication: 09:07 VIS not applicable for this client. rs5 Intake: 09:17 IV: 999ml; Total: 999ml. rs5 Outcome: 10:58 Decision to Hospitalize by Provider. sd2 11:20 Admitted to ER Hold. Please see [facility] for further documentation. rs5 11:20 Condition: stable rs5 11:20 Instructed on the need for admit, Demonstrated understanding of instructions, 18:37 Patient left the ED. ph Signatures: Dispatcher [facility] EDPR Myers, Erika, Jahaira Valadez RN, ph, RN RN ll1 Fidelia Lopez MD MD sd2 Ky Andersen RN RN rs5 Yuridia Huddleston mg5 Corrections: (The following items were deleted from the chart) 17:01 08:42 IV Status: Completed infusion; IV Intake: 999ml rs5 rs5
--- NOTE | 2023-11-02 10:59 | EDPHYS ---
Physician Documentation [facility] Name: Marcie Obando Age: 58 yrs Sex: Female : 1965 Arrival Date: 11/02/2023 Time: 07:21 Bed 4 Private MD: ED Physician Fidelia Lopez HPI: 11/01 08:20 This 58 yrs old Female presents to ER via Ambulatory with complaints of Dizziness, sd2 Syncope. 08:20 58-year-old female presents the chief complaint of room spinning dizziness with sd2 associated syncopal episode the first occurred on October 12 of this month. She reports feeling the room was spinning around her and went to stand and then woke up on the ground. She denies any preceding chest pain or shortness of breath. She also reports that 2 days ago something similar happened and she ended up passed out on the ground as well. She cannot recall from that episode however what preceding events that she had. She reports that since then she has continued to have room spinning dizziness and felt unstable on her feet and off balance. She denies any new medications and reports compliance with her current medications including Xarelto.. Historical: - Allergies: 07:37 NKA; ll1 - PMHx: 07:37 blood clots; Bipolar disorder; Hypertension; Hypothyroidism; Migraines; stage 3 renal ll1 disease; UTI; - PSHx: 07:37 Total abdominal hysterectomy; ll1 - Immunization history:: Adult Immunizations up to date. - Infectious Disease History:: Denies. - Social history:: Smoking status: Patient denies any tobacco usage or history of. ROS: 08:20 Constitutional: Negative for fever, chills, and weight loss, Eyes: Negative for injury, sd2 pain, redness, and discharge, Cardiovascular: Negative for chest pain, palpitations, and edema, Respiratory: Negative for shortness of breath, cough, wheezing. Abdomen/GI: Negative for abdominal pain, nausea, vomiting, diarrhea. MS/Extremity: Negative for injury and deformity, Skin: Negative for injury, rash, and discoloration, 08:20 Neuro: Positive for dizziness, gait disturbance, loss of consciousness, Negative for numbness, seizure activity, speech changes, visual changes, weakness, Exam: 08:20 Constitutional: This is a well developed, well nourished patient who is awake, alert, sd2 and in no acute distress. Head/Face: Normocephalic, atraumatic. Eyes: EOMI, normal conjunctiva bilaterally Chest/axilla: Normal chest wall appearance and motion. Nontender with no deformity. Cardiovascular: Regular rate and rhythm with a normal S1 and S2. No gallops, murmurs, or rubs. 2+ distal pulses. Respiratory: Lungs have equal breath sounds bilaterally, clear to auscultation and percussion. No rales, rhonchi or wheezes noted. No increased work of breathing, no retractions or nasal flaring. Abdomen/GI: Soft, non-tender, with normal bowel sounds. No guarding or rebound. No evidence of tenderness throughout. Skin: Warm, dry with normal turgor. Normal color with no rashes, no lesions, and no evidence of cellulitis. MS/ Extremity: Pulses equal, no cyanosis. Neurovascular intact. Full, normal range of motion. Neuro: Awake and alert, GCS 15, oriented to person, place, time, and situation. Cranial nerves II-XII grossly intact. Motor strength 5/5 in all extremities. Sensory grossly intact. Cerebellar exam normal. Saloni hallpike positive when looking to the right. Nystagmus when looking to the right. 08:20 ECG was reviewed by the Attending Physician. NSR, rate 77, no STEMI criteria Vital Signs: 07:37 BP 129 / 98; Pulse 82; Resp 17; Temp 98.2; Pulse Ox 98% on R/A; Weight 104.33 kg; ll1 Height 5 ft. 4 in. ; Pain 4/10; 08:36 BP 108 / 81 Supine; Pulse 69; rs5 08:38 BP 123 / 88; Pulse 78; rs5 08:40 BP 136 / 99; Pulse 84; rs5 11:15 BP 130 / 87; Pulse 70; Resp 17; Pulse Ox 99% on R/A; rs5 07:37 Body Mass Index 39.48 (104.33 kg, 162.56 cm) ll1 07:37 Pain Scale: Adult ll1 MDM: 07:45 Patient medically screened. sd2 08:20 Differential diagnosis: cardiac arrhythmia, CVA, generalized weakness, GI bleed, head sd2 injury, hyperventilation, hypovolemia, idiopathic dizziness, near-syncope, , sepsis, syncope, TIA, vertigo, among others. Data reviewed: vital signs, nurses notes, lab test result(s), EKG, radiologic studies. I considered the following discharge prescriptions or medication management in the emergency department Medications were administered in the Emergency Department. See MAR. Care significantly affected by the following chronic conditions: Hypertension, Chronic Kidney Disease. 10:57 Independent interpretation of the following test(s) in the Emergency Department CT sd2 Scan: My interpretation is no bleed. Counseling: I had a detailed discussion with the patient and/or guardian regarding the historical points, exam findings, and any diagnostic results supporting the discharge/admit diagnosis, lab results, radiology results, the need for further work-up and treatment in the hospital. Response to treatment: the patient's symptoms have mildly improved after treatment. ED course: No improvement after meclizine. More improvement after Valium but patient still unable to ambulate without significant dizziness and assistance. Will admit for further management. . 11/01 07:59 Order name: CBC with Diff; Complete Time: 09:10 sd2 11/01 07:59 Order name: CMP; Complete Time: 09:10 sd2 11/01 07:59 Order name: Troponin High Sensitivity; Complete Time: 09:10 sd2 11/01 07:59 Order name: PT-INR; Complete Time: 09:10 sd2 11/01 07:59 Order name: Ptt, Activated; Complete Time: 09:10 sd2 11/01 07:59 Order name: BNP; Complete Time: 09:10 sd2 11/01 07:59 Order name: Urinalysis w/ reflexes; Complete Time: 09:10 sd2 11/01 16:14 Order name: Troponin High Sensitivity; Complete Time: 17:22 EDMS 11/01 07:59 Order name: CT Head Brain wo Cont; Complete Time: 08:23 sd2 11/01 10:29 Order name: XRAY Foot RIGHT 3 View; Complete Time: 11:38 sd2 11/01 12:04 Order name: Brain Wo Cont EDMS 11/01 07:59 Order name: EKG - Nurse/Tech; Complete Time: 08:18 sd2 11/01 07:59 Order name: Orthostatics; Complete Time: 08:44 sd2 Administered Medications: 08:20 Drug: NS 0.9% IV 1000 ml IV at 1 bolus Per protocol; 1000 mL bolus Route: IV; Rate: 1 rs5 bolus; Site: right antecubital; 09:17 Follow up: IV Status: Completed infusion; IV Intake: 999ml rs5 08:20 Drug: Meclizine PO 25 mg PO once Route: PO; rs5 09:17 Follow up: Response: No adverse reaction rs5 09:40 Drug: Diazepam PO 5 mg PO once Route: PO; rs5 11:12 Follow up: Response: No adverse reaction rs5 Disposition Summary: 11/02/23 10:58 Hospitalization Ordered Notes: Hospitalization Status: Observation sd2 Provider: Manan Desouza sd2 Condition: Stable sd2 Problem: new sd2 Symptoms: have improved sd2 Bed/Room Type: Standard sd2 Location: Telemetry/MedSurg (observation)(11/02/23 16:57) bd Room Assignment: [facility](11/02/23 16:57) bd Diagnosis - Dizziness and giddiness sd2 - Vertigo sd2 - Syncope sd2 Forms: - Medication Reconciliation Form sd2 - SBAR form sd2 - Leadership Thank You Letter sd2 Signatures: Dispatcher [employer] EDFelicia Brooks bd Jahaira Prajapati RN RN ll1 Fidelia Lopez MD MD sd2 Ky Andersen RN RN rs5 Corrections: (The following items were deleted from the chart) 12:36 10:58 Telemetry/MedSurg (observation) sd2 bd 12:36 10:58 sd2 bd 16:57 12:36 [facility] ER HOLD bd bd 16:57 12:36 ERHOLD- bd bd
--- NOTE | 2023-11-02 11:34 | RAD REPORT ---
EXAM DESCRIPTION: RAD - Foot Right 3 View - 11/02/2023 11:23 am CLINICAL HISTORY: PAIN COMPARISON: No comparisons FINDINGS: There is significant degenerative change involving the first metatarsal-phalangeal joint. Moderate plantar calcaneal spur. No acute fracture or dislocation.
[2023-11-02] MEDS ORDERED: ONDANSETRON 4 MG/2 ML VIAL IV PRN (13:37)
[2023-11-02] MEDS ORDERED: MECLIZINE HCL 12.5 MG TAB PO PRN (13:37)
[2023-11-02 13:43] VITALS: BMI 38.4
[2023-11-02] MEDS ORDERED: PNEUMOCOCCAL VACCINE 0.5 ML IMVAC ONE (14:00)
--- NOTE | 2023-11-02 14:37 | P.HP ---
Certification for Inpatient Patient admitted to: Observation With expected LOS: <2 Midnights Patient will require the following post-hospital care: None Practitioner: I am a practitioner with admitting privileges, knowledge of patient current condition, hospital course, and medical plan of care. Services: Services provided to patient in accordance with Admission requirements found in Title 42 Section 412.3 of the Code of Federal Regulations Patient History Date of Service: 11/02/23 Reason for admission: Syncope, dizziness History of Present Illness: 58-year-old female with history of COPD, previous DVT on chronic anticoagulation with Xarelto, hypertension, hypothyroidism, CKD 3, migraines presents to the emergency department with chief complaint of multiple syncopal episodes, dizziness/vertigo. She reports that starting on October 12 she had an episode when getting out of bed at night she felt as if the room was spinning and subsequently had a syncopal episode waking up on the floor. On 10/30 she reports she was walking in the garage without recent change in position after being on her feet for a while when she suddenly collapsed losing consciousness and woke on the floor. Prior to that episode she denied any prodrome, denied any vertiginous symptoms or chest pain/dyspnea. For the past day or so she has been having persistent dizziness/vertigo symptoms. Patient was evaluated in the emergency department her initial high sensitive troponin was normal At 3.6 other labs were unremarkable CT head without contrast was negative for ac christen findings. She was given meclizine and diazepam and seem to have some mild relief of her dizziness but was still very unstable on her feet, ED prior wishes to admit patient under observation for syncope, dizziness. Allergies No Known Allergies Allergy (Verified 11/02/22 13:18) Home Medications: Rivaroxaban [Xarelto] 20 mg PO BEDTIME 07/13/15 Albuterol Inhaler [Ventolin Inhaler*] 2 puff IH Q6H PRN 30 Days #1 hfa.[email or web address].[email or web address] 09/28/20 Amitriptyline [Elavil] 50 mg PO BEDTIME 11/02/22 Estradiol 2 mg PO DAILY 11/02/22 Fluticasone/Umeclidin/Vilanter [Trelegy Ellipta 200-62.5-25] 1 puff IH DAILY 11/02/22 Levothyroxine [Synthroid] 75 mcg PO [id number] 11/02/22 Linaclotide [Linzess] 290 mcg PO DAILY 11/02/22 Metoprolol Succinate [Toprol Xl] 25 mg PO DAILY 11/02/22 Rimegepant Sulfate [Nurtec Odt] 75 mg PO PRN PRN 11/02/22 hydrOXYzine HCL [Atarax] 25 mg PO DAILY 11/02/22 - Past Medical/Surgical History Diabetic: No -: Bipolar -: Hypothyroid -: DVT on chronic anticoagulation -: Hypertension -: CKD 3 -: Migraines -: COPD -: hysterectomy -: kidney sx when child -: Knee Sx -: Shoulder sx -: Tonsillectomy -: Chlecystectomy -: Breast implants -: Tummy tuck Psychosocial/ Personal History: Lives with family - Family History Father -: Heart disease, Hypertension - Social History Smoking Status: Never smoker Alcohol use: No CD- Drugs: No Caffeine use: Yes Place of Residence: Home Review of Systems 10-point ROS is otherwise unremarkable Cardiovascular: Other (Syncope) Neurological: Other (Dizziness, gait instability) Physical Examination - Physical Exam General: Alert, In no apparent distress, Oriented x3 HEENT: Atraumatic, PERRLA, Mucous membr. moist/pink, EOMI Neck: Supple, 2+ carotid pulse no bruit Respiratory: Clear to auscultation bilaterally, Normal air movement Cardiovascular: Regular rate/rhythm, Normal S1 S2 Gastrointestinal: Normal bowel sounds Musculoskeletal: No tenderness Integumentary: No rashes Neurological: Normal gait, Normal speech, Normal strength at 5/5 x4 extr, Normal tone, Other (NIH score is 0 currently, small amount right beating nystagmus) - Studies Laboratory Data (last 24 hrs) 11/02/23 11/02/23 11/02/23 08:10 08:10 08:10 WBC 6.10 Hgb 15.3 H Hct 47.4 H Plt Count 232 PT 11.8 INR 1.06 APTT 31.1 Sodium 140 Potassium 4.3 BUN 14 Creatinine 1.08 H Glucose 97 Total Bilirubin 0.6 AST 21 ALT 34 Alkaline Phosphatase 90 Assessment and Plan - Plan Assessment: Dizziness/vertigo rule out CVA Syncope History of DVT on chronic anticoagulation COPD Hypertension Hypothyroidism CKD 3 Plan: Dizziness/vertigo rule out CVA Syncope Orthostatic vital signs negative CT head without contrast negative for acute findings Describes vertiginous symptoms/room spinning at this time Previous episode of syncope on 10/30 without any dizziness/vertiginous symptoms, chest pain or other prodrome Obtain MRI brain to rule out CVA Echocardiogram, cardiology consultation also in place Trend troponins and monitor on telemetry PT consult If MRI negative and still symptomatic we will try Doretha History of DVT on chronic anticoagulation Xarelto continued COPD Hypertension Hypothyroidism CKD 3 Continue home medications when verified DVT PPX: Continue Xarelto Code status: Full Discharge Plan: Home Plan to discharge in: 24 Hours - Advance Directives Does patient have a Living Will: No Does patient have a Durable POA for Healthcare: No - Code Status/Comfort Care Code Status Assessed: Yes (Full code) Critical Care: No Time Spent Managing Pts Care (In Minutes): 70
--- NOTE | 2023-11-02 18:08 | RAD REPORT ---
EXAM DESCRIPTION: MRI - Brain Wo Cont - 11/02/2023 1:11 pm CLINICAL HISTORY: dizziness, vertigo R/O CVA COMPARISON: Noncontrast head CT of earlier the same day TECHNIQUE: Multiplanar multisequence MRI of the brain performed without IV contrast. FINDINGS: No evidence of acute infarct or other diffusion signal abnormality. No evidence of acute intracranial hemorrhage or abnormal extra-axial fluid collections. Mild diffuse parenchymal volume loss. Ventricular caliber otherwise within normal for age. Midline st ructures are unremarkable. Scattered subcortical and deep white matter T2/FLAIR hyperintensities, nonspecific, but suggestive of chronic small vessel ischemic changes. No mass effect or midline shift. Major vascular flow voids are preserved. Mastoid air cells show patchy opacification on the right. Paranasal sinuses are clear. IMPRESSION: No acute intracranial process. No evidence of ventriculomegaly or mass effect.
[2023-11-02] MEDS: RIVAROXABAN 20 MG TABLET PO SCH (18:41)
[2023-11-02] MEDS: ACETAMINOPHEN 500 MG TAB PO PRN (20:37)
--- NOTE | 2023-11-02 20:39 | CON ---
Date of Consultation: 11/02/2023 Reason For Consultation: Syncope. History Of Present Illness: This is a 58-year-old female who presented with dizziness and syncope, h as past medical history of COPD, DVT, on Xarelto, hypothyroidism, hypertension, on antihypertensive m edications, migraines, headache, presented with dizziness, vertigo-like symptoms, and passing out. H ad two episodes of syncope, one on the week and she felt nauseated, about to throw up, stood up, felt very dizzy, and hit the floor. Briefly, did not feel any chest pain, no palpitations. Another epis ode happened yesterday which prompted her to come to the emergency room, but she has been having vert igo-like symptoms and no shortness of breath. Past Medical History: As outlined above in the HPI. Medications: Refer to reconciliation sheet for detailed list. Allergies: NO KNOWN DRUG ALLERGIES. Family History: No premature coronary artery disease or cancer. Social History: She does not smoke or drink. Does not use any drugs. Review of Systems: All systems were reviewed and they were negative except as mentioned in HPI. Physical Examination: Vital Signs: Reviewed. Head and Neck: Pupils are equal, reactive to light. Intact eye movements. No JVD. No cervical lym phadenopathy. Neck is supple. Thyroid is not enlarged. Lungs: Clear to auscultation bilaterally. No rhonchi, wheezing, or crackles. No accessory muscle u se. Heart: Regular rate and rhythm. No extra sounds. Abdomen: Soft, nontender. Bowel sounds positive. No organomegaly. No masses or hernia. No rigidi ty or rebound. Extremities: No edema, clubbing, or cyanosis. Intact pulses. Skin: No rash. No nodule. Neurologic: Alert, awake, oriented x3. No acute focal deficits appreciated. Investigations: Hemoglobin 15.3, white blood cell count 6.1, BUN is 14, creatinine 1.08. Troponin i s negative. Assessment And Recommendations: 1.Syncope. This is likely related to vertigo. Her symptoms appears to be more vertigo than lighthe adedness suggestive of non-cardiovascular cause. However, monitor on telemetry for any arrhythmias. Obtain an echocardiogram and trend troponins. Further plan accordingly and I recommend ENT evaluati on for the vertigo. 2.Hypertension. Blood pressure is borderline elevated. Resume home medications and adjust as neede d. 3.History of DVT, on chronic anticoagulation. Continue current management. SR/MODL Voice ID: [id number] Report ID: [id number]
[2023-11-02 20:44] VITALS: O2SAT 99
[2023-11-03 04:46] LABS: Absolute Eosinophils 0.1 K/uL (0-0.5); Absolute Lymphocytes (CBC) 1.8 K/uL (0.7-4.9); Absolute Monocytes 0.5 K/uL (0.1-1.3); Absolute Neutrophil 5.2 K/uL (1.8-8.0); Basophils % 0.6 % (0-1.3); Eosinophils % 1.7 % (0-4.4); Hematocrit 41.4 % (36.0-45.0); Hemoglobin 14.1 g/dL (12.0-15.0); Lymphocytes % 23.2 % (15.3-44.8); MCH 30.5 pg (27.0-35.0); MCHC 34.2 g/dL (32.0-36.0); MCV 89.2 fL (80-100); MPV 7.6 fL (7.6-11.3); Monocytes % 7.1 % (3.3-12.3); Neutrophils % 67.4 % (41.7-73.7); Nucleated Red Blood Cells % 0.1 % (0-0); Platelets 212 thou/uL (152-406); RBC Red Blood Cell Count 4.64 M/uL (3.86-4.86); Red Cell Distribution Width 14.2 % (12.1-15.2)
[2023-11-03 05:16] LABS: Anion Gap 6.2 mEq/L (5.0-15.0); Potassium 4.2 mEq/L (3.5-5.1); Thyroid Stimulating Hormone 2.39 uIU/mL (0.358-3.740)
[2023-11-03] MEDS ORDERED: ENOXAPARIN 40 MG/0.4 ML SQ SCH (09:00)
--- NOTE | 2023-11-03 11:10 | P.PN ---
Subjective Date of Service: 11/03/23 Chief Complaint: Syncope, dizziness Subjective: No new changes, No C/O voiced, Tolerating diet, Ambulating, Improving Review of Systems 10-point ROS is otherwise unremarkable Physical Examination - Vital Signs Temperature: 97 F Blood Pressure: 120/79 Pulse: 80 Respirations: 15 Pulse Ox (%): 95 - Physical Exam General: Alert, In no apparent distress HEENT: Atraumatic, PERRLA, EOMI Neck: Supple, JVD not distended Respiratory: Clear to auscultation bilaterally, Normal air movement Cardiovascular: Regular rate/rhythm, Normal S1 S2 Gastrointestinal: Normal bowel sounds, No tenderness Musculoskeletal: No tenderness Integumentary: No rashes Neurological: Normal speech, Normal tone, Normal affect Lymphatics: No axilla or inguinal lymphadenopathy - Studies Medications List Reviewed: Yes Assessment And Plan - Current Problems (Diagnosis) (1) Vertigo Current Visit: Yes Status: Acute Plan: patient tele monitor overnight was reviewed and there is no signs of cardiac arrhythmias or pauses. patient symptoms most likely non cardiac in origin primary to work up other causes of dizziness. (2) DVT (deep venous thrombosis) Current Visit: Yes Status: Acute Plan: continue Xarelto (3) HTN (hypertension) Current Visit: Yes Status: Acute Plan: BP is normal, continue to monitor.
--- NOTE | 2023-11-03 13:04 | ECHO ---
HEIGHT: 5 ft 4 in WEIGHT: 224 lb 0 oz DATE OF STUDY: 11/03/[address]: Jamel Hale NP 2-DIMENSIONAL: YES M.MODE: YES DOPPLER: YES COLOR FLOW: YES TDS: YES PORTABLE: YES DEFINITY: BUBBLE STUDY: DIAGNOSIS: SYNCOPE CARDIAC HISTORY: CATHERIZATION: NO SURGERY: NO PROSTHETIC VALVE: NO PACEMAKER: NO MEASUREMENTS (cm) DIASTOLIC (NORMALS) SYSTOLIC (NORMALS) IVSd 1.0 (0.6-1.2) LA Diam 2.2 (1.9-4.0) LVEF 60-65% LVIDd 3.0 (3.5-5.7) LVIDs 2.2 (2.0-3.5) %FS 27% LVPWd 1.1 (0.6-1.2) Ao Diam 2.4 (2.0-3.7) 2 DIMENSIONAL ASSESSMENT: RIGHT ATRIUM: NORMAL LEFT ATRIUM: NORMAL RIGHT VENTRICLE: NORMAL LEFT VENTRICLE: NORMAL TRICUSPID VALVE: NORMAL MITRAL VALVE: NORMAL PULMONIC VALVE: NORMAL AORTIC VALVE: NORMAL PERICARDIAL EFFUSION: NONE AORTIC ROOT: NORMAL LEFT VENTRICULAR WALL MOTION: NORMAL DOPPLER/COLOR FLOW: NORMAL COMMENTS: 1. NORMAL LEFT VENTRICULAR SYSTOLIC FUNCTION, EJECTION FRACTION 60-65%, NORMAL WALL MOTION 2. NORMAL LEFT VENTRICULAR DIASTOLIC FUNCTION TECHNOLOGIST: NATALI ELIZONDO
--- NOTE | 2023-11-03 15:46 | P.DS ---
Admission Date: 11/02/23 Discharge Date: 11/03/23 Disposition: ROUTINE DISCHARGE Discharge Condition: GOOD Reason for Admission: Syncope, dizziness Brief History of Present Illness: 58-year-old female with history of COPD, previous DVT on chronic anticoagulation with Xarelto, hypertension, hypothyroidism, CKD 3, migraines presents to the emergency department with chief complaint of multiple syncopal episodes, dizziness/vertigo. She reports that starting on October 12 she had an episode when getting out of bed at night she felt as if the room was spinning and subsequently had a syncopal episode waking up on the floor. On 10/30 she reports she was walking in the garage without recent change in position after being on her feet for a while when she suddenly collapsed losing consciousness and woke on the floor. Prior to that episode she denied any prodrome, denied any vertiginous symptoms or chest pain/dyspnea. For the past day or so she has been having persistent dizziness/vertigo symptoms. [facility] her initial high sensitive troponin was normal At 3.6 other labs were unremarkable CT head without contrast was negative for acute findings. She was given meclizine and diazepam and seem to have some mild relief of her dizziness but was still very unstable on her feet, ED prior wishes to admit patient under observation for syncope, dizziness. Hospital Course: Assessment: Dizziness/vertigo rule out CVA Syncope History of DVT on chronic anticoagulation COPD Hypertension Hypothyroidism CKD 3 Patient was admitted to the hospital for syncope, dizziness. She was monitored in telemetry and had no arrhythmia, troponins were negative, echocardiogram was performed and normal, MRI of the brain showed no acute finding/CVA. Doretha maneuver was performed and she had mild to moderate improvement. She was also suffering from migraine headache which was improved with her home dose of Nurtec. She was able to walk with physical therapy using a walker, she states that she has a walker at home and feels comfortable with discharge at this time. Please follow-up with your primary care doctor in neurologist in the next 1 to 2 weeks You may take meclizine [id number] as needed for dizziness Please use your walker when you are feeling dizzy to prevent risk of falls. Continue home medications as previously prescribed. Vital Signs/Physical Exam: Temp Pulse Resp BP Pulse Ox 97.2 F 95 H 16 118/79 94 11/03/23 12:00 11/03/23 12:00 11/03/23 12:00 11/03/23 12:00 11/03/23 12:00 General: Alert, In no apparent distress, Oriented x3 HEENT: Atraumatic, PERRLA Neck: Supple, JVD not distended Respiratory: Clear to auscultation bilaterally, Normal air movement Cardiovascular: Regular rate/rhythm, Normal S1 S2 Gastrointestinal: Normal bowel sounds, No tenderness Musculoskeletal: No tenderness Integumentary: No rashes Neurological: Normal speech, Normal tone, Normal affect Laboratory Data at Discharge: WBC 7.70 thou/uL (4.3-10.9) 11/03/23 04:28 Hgb 14.1 g/dL (12.0-15.0) 11/03/23 04:28 Hct 41.4 % (36.0-45.0) 11/03/23 04:28 Plt Count 212 thou/uL (152-406) 11/03/23 04:28 PT 11.8 SECONDS (9.4-12.5) 11/02/23 08:10 INR 1.06 11/02/23 08:10 APTT 31.1 SECONDS (24.3-36.9) 11/02/23 08:10 Sodium 139 mEq/L (136-145) 11/03/23 04:17 Potassium 4.2 mEq/L (3.5-5.1) 11/03/23 04:17 BUN 13 mg/dL (7-18) 11/03/23 04:17 Creatinine 1.03 mg/dL (0.55-1.02) H 11/03/23 04:17 Glucose 110 mg/dL (74-106) H 11/03/23 04:17 Total Bilirubin 0.6 mg/dL (0.2-1.0) 11/02/23 08:10 AST 21 U/L (15-37) 11/02/23 08:10 ALT 34 U/L (13-56) 11/02/23 08:10 Alkaline Phosphatase 90 U/L (45-117) 11/02/23 08:10 Home Medications: Rivaroxaban [Xarelto] 20 mg PO BEDTIME 07/13/15 Albuterol Inhaler [Ventolin Inhaler*] 2 puff IH Q6H PRN 30 Days #1 hfa.aer.[email or web address] 09/28/20 Amitriptyline [Elavil] 50 mg PO BEDTIME 11/02/22 Estradiol 2 mg PO DAILY 11/02/22 Fluticasone/Umeclidin/Vilanter [Trelegy Ellipta 200-62.5-25] 1 puff IH DAILY 11/02/22 Levothyroxine [Synthroid] 75 mcg PO [id number] 11/02/22 Linaclotide [Linzess] 290 mcg PO DAILY 11/02/22 Metoprolol Succinate [Toprol Xl] 25 mg PO DAILY 11/02/22 Rimegepant Sulfate [Nurtec Odt] 75 mg PO PRN PRN 11/02/22 hydrOXYzine HCL [Atarax] 25 mg PO DAILY 11/02/22 Physician Discharge Instructions: Patient was admitted to the hospital for syncope, dizziness. She was monitored in telemetry and had no arrhythmia, troponins were negative, echocardiogram was performed and normal, MRI of the brain showed no acute finding/CVA. Doretha maneuver was performed and she had mild to moderate improvement. She was also suffering from migraine headache which was improved with her home dose of Nu rtec. She was able to walk with physical therapy using a walker, she states that she has a walker at home and feels comfortable with discharge at this time. Please follow-up with your primary care doctor in neurologist in the next 1 to 2 weeks You may take meclizine [id number] as needed for dizziness Please use your walker when you are feeling dizzy to prevent risk of falls. Continue home medications as previously prescribed. Diet: Regular Activity: walker as needed Followup: Hieu Preston FNP [Primary Care Provider] - 1-2 Weeks Time spent managing pt's care (in minutes): 35
[2023-11-03 16:06] VITALS: BP 139/83; TEMP 98.2
--- NOTE | 2023-11-05 13:39 | EKG ---
Test Date: 2023-11-02 Test Time: 08:08:07 Statistician Applied: VILMA MEASUREMENT RESULTS: Intervals: Rate: 77 MO: 156 QRSD: 82 QT: 382 QTc: 432 Hernando: P: 14 MO: 156 QRS: 16 T: 39 INTERPRETIVE STATEMENTS: Normal sinus rhythm Normal ECG Compared to ECG 11/02/2022 13:30:00 No significant changes Electronically Signed On 11-05-23 13:32:45 CDT by Charan Yoo
== END 2023-11-03 18:02 | disposition home or self-care (01) ==
LOC: ER 07:21 → ERHOLD 12:01 → 2ND 17:43
PROVIDERS: ADMIT Hospitalist; ATTEND Hospitalist
DX: R55 Syncope and collapse (principal); R42 Dizziness and giddiness; J44.9 Chronic obstructive pulmonary disease, unspecified; I10 Essential (primary) hypertension; E03.9 Hypothyroidism, unspecified; N18.30 Chronic kidney disease, stage 3 unspecified; G43.909 Migraine, unspecified, not intractable, without status migrainosus; Z86.718 Personal history of other venous thrombosis and embolism; Z79.01 Long term (current) use of anticoagulants
CPT/HCPCS: 85025; 81001; 36415; 85610; 85730; 84484 ×3; 80053; 83880; 70450; 73630; 70551; J8597; J7030; 80048; 84439; 84443; 93005; 93306; 96360; 97112; 97116; 97161; 99285; G0378